=== PATIENT | female | born 1950 | race Caucasian/White ===

== ENCOUNTER 2017-01-05 12:11 | Outpatient (CLI) | payer MEDICAID | END 2017-01-05 12:12 | disposition critical access hospital (66) | DX: J45.901 Unspecified asthma with (acute) exacerbation (principal) | CPT/HCPCS: A0425; A0427 ==

== ENCOUNTER 2017-01-05 12:33 | Observation (INO) | payer MEDICAID ==
[2017-01-05] MEDS ORDERED: predniSONE 20 MG TABLET PO STA (12:59)
[2017-01-05] MEDS ORDERED: ALBUTEROL NEB 2.5 MG/3 ML INH STA ×2 (12:59→16:21)
[2017-01-05] MEDS ORDERED: predniSONE 20 MG TABLET ONE (13:03)
[2017-01-05] MEDS ORDERED: ALBUTEROL NEB 2.5 MG/3 ML INH ONE ×2 (13:05→17:03)
[2017-01-05] MEDS ORDERED: HYDROcod/ACETAM 5/325 MG TABLET PO STA (13:06)
[2017-01-05] MEDS ORDERED: HYDROcod/ACETAM 5/325 MG TABLET ONE (13:09)
[2017-01-05] MEDS ORDERED: BENZONATATE 100 MG CAPSULE PO STA (16:21)
[2017-01-05] MEDS ORDERED: MECLIZINE 12.5 MG TABLET PO PRN (16:45)
[2017-01-05] MEDS ORDERED: BENZONATATE 100 MG CAPSULE PO ONE (16:45)
[2017-01-05] MEDS ORDERED: guaiFENesin/CODEINE 5 ML UDC PO PRN (16:47)
[2017-01-05] MEDS ORDERED: ACETAMINOPHEN 325 MG TABLET PO PRN (16:47)
[2017-01-05] MEDS ORDERED: SODIUM CHLORIDE FLUSH 0.9% 10 ML SYRINGE IVP PRN (16:47)
[2017-01-05] MEDS ORDERED: SODIUM CHLORIDE INHALATION 3 ML NEB INH PRN (17:56)
[2017-01-05] MEDS: INSULIN ASPART 300 UNIT/3 ML PEN SUBQ SCH ×3 (18:39→21:09)
[2017-01-05] MEDS: guaiFENesin 100 MG/5 ML UDC PO PRN (19:11)
[2017-01-05] MEDS ORDERED: diphenhydrAMINE 25 MG CAPSULE PO PRN (19:13)
[2017-01-05] MEDS ORDERED: LORazepam 0.5 MG TABLET PO PRN (19:46)
[2017-01-05] MEDS: LEVALBUTEROL 1.25 MG INH SCH (20:28)
[2017-01-05] MEDS: BUDESONIDE 0.5 MG/2 ML NEB INH SCH (20:28)
[2017-01-05] MEDS: FORMOTEROL FUMARATE NEB 20 MCG/2 ML INH SCH (20:28)
[2017-01-05] MEDS ORDERED: DULoxetine 30 MG CAPSULE PO SCH (21:00)
[2017-01-05] MEDS ORDERED: INSULIN GLARGINE 300 UNIT/3 ML PEN SUBQ SCH (21:00)
[2017-01-05] MEDS ORDERED: ATORVASTATIN 10 MG TABLET PO SCH (21:00)
[2017-01-05] MEDS ORDERED: NORTRIPTYLINE 25 MG CAPSULE PO SCH (21:00)
[2017-01-05] MEDS ORDERED: BECLOMETHASONE 80 MCG INH SCH (21:00)
[2017-01-05] MEDS: GABAPENTIN 300 MG CAPSULE PO SCH (22:41)
[2017-01-05] MEDS: SODIUM CHLORIDE FLUSH 0.9% 10 ML SYRINGE IVP SCH (23:27)
[2017-01-06] MEDS: guaiFENesin 100 MG/5 ML UDC PO PRN ×2 (00:55→13:52)
[2017-01-06] MEDS: GABAPENTIN 300 MG CAPSULE PO SCH ×2 (06:05→13:52)
[2017-01-06] MEDS: SODIUM CHLORIDE FLUSH 0.9% 10 ML SYRINGE IVP SCH ×2 (06:06→13:52)
[2017-01-06] MEDS ORDERED: LEVALBUTEROL 1.25 MG INH PRN (06:50)
[2017-01-06] MEDS ORDERED: PANTOPRAZOLE 40 MG TABLET PO SCH (07:00)
[2017-01-06] MEDS: FORMOTEROL FUMARATE NEB 20 MCG/2 ML INH SCH (07:21)
[2017-01-06] MEDS: LEVALBUTEROL 1.25 MG INH SCH ×3 (07:21→16:06)
[2017-01-06] MEDS: BUDESONIDE 0.5 MG/2 ML NEB INH SCH (07:21)
[2017-01-06] MEDS ORDERED: LOSARTAN 50 MG TABLET PO SCH (09:00)
[2017-01-06] MEDS ORDERED: POLYETHYLENE GLYCOL 3350 17 GM PACKET PO SCH (09:00)
[2017-01-06] MEDS ORDERED: amLODIPine 5 MG TABLET PO SCH (09:00)
[2017-01-06] MEDS ORDERED: MONTELUKAST 10 MG TABLET PO SCH (09:00)
[2017-01-06] MEDS: INSULIN ASPART 300 UNIT/3 ML PEN SUBQ SCH ×6 (09:00→17:06)
[2017-01-06] MEDS ORDERED: ENOXAPARIN 40 MG/0.4 ML SYRINGE SUBQ SCH (09:00)
[2017-01-06] MEDS ORDERED: ASPIRIN EC 81 MG TABLET PO SCH (09:00)
[2017-01-06] MEDS: SODIUM CHLORIDE INHALATION 3 ML NEB INH PRN ×2 (11:22→16:06)
== END 2017-01-06 17:54 | disposition home or self-care (01) ==
DX: J96.11 Chronic respiratory failure with hypoxia (principal); J96.12 Chronic respiratory failure with hypercapnia; J45.901 Unspecified asthma with (acute) exacerbation; E66.2 Morbid (severe) obesity with alveolar hypoventilation; D72.829 Elevated white blood cell count, unspecified; E11.42 Type 2 diabetes mellitus with diabetic polyneuropathy; I11.0 Hypertensive heart disease with heart failure; I50.32 Chronic diastolic (congestive) heart failure; E78.5 Hyperlipidemia, unspecified; K21.9 Gastro-esophageal reflux disease without esophagitis; M79.89 Other specified soft tissue disorders; I27.2 Other secondary pulmonary hypertension; Z68.44 Body mass index [BMI] 60.0-69.9, adult; Z79.4 Long term (current) use of insulin; Z87.891 Personal history of nicotine dependence; Z91.19 Patient's noncompliance with other medical treatment and regimen; Z87.01 Personal history of pneumonia (recurrent); Z79.82 Long term (current) use of aspirin
CPT/HCPCS: 36415; 36600; 71010; 80053; 82803; 83036; 83690; 83880; 84484; 85025; 85379; 93005; 93306; 93971; 94640; 94761; 96372; 99284; 99285; A9270; G0378; J1650; J1815; J7512; J7613; J7626

== ENCOUNTER 2017-01-11 20:20 | Outpatient (CLI) | payer MEDICAID | END 2017-01-11 20:21 | disposition home or self-care (01) | DX: R05 Cough (principal) | CPT/HCPCS: A0425; A0429 ==

== ENCOUNTER 2017-01-11 20:40 | Emergency (ER) | payer MEDICAID ==
[2017-01-11] MEDS ORDERED: ALBUTEROL NEB 2.5 MG/3 ML INH STA (21:19)
[2017-01-11] MEDS ORDERED: HYDROcodone/ACETAM 7.5 MG/325 MG 15 ML UDC PO STA (21:20)
[2017-01-11] MEDS ORDERED: ALBUTEROL NEB 2.5 MG/3 ML INH ONE (21:23)
[2017-01-11] MEDS ORDERED: HYDROcodone/ACETAM 7.5 MG/325 MG 15 ML UDC PO ONE (21:35)
[2017-01-11] MEDS ORDERED: BENZONATATE 100 MG CAPSULE PO STA (23:09)
[2017-01-11] MEDS ORDERED: BENZONATATE 100 MG CAPSULE PO ONE (23:10)
== END 2017-01-11 23:12 | disposition home or self-care (01) ==
DX: R05 Cough (principal); I11.0 Hypertensive heart disease with heart failure; I50.9 Heart failure, unspecified; E78.00 Pure hypercholesterolemia, unspecified; J45.909 Unspecified asthma, uncomplicated; E11.9 Type 2 diabetes mellitus without complications; Z79.4 Long term (current) use of insulin; K21.9 Gastro-esophageal reflux disease without esophagitis; M19.90 Unspecified osteoarthritis, unspecified site; Z79.82 Long term (current) use of aspirin; Z87.891 Personal history of nicotine dependence
CPT/HCPCS: 71020; 94640; 99283; A9270; J7613

== ENCOUNTER 2017-01-11 23:24 | Outpatient (CLI) | payer MEDICAID | END 2017-01-11 23:25 | disposition home or self-care (01) | DX: R05 Cough (principal) | CPT/HCPCS: A0425; A0428 ==

== ENCOUNTER 2017-02-13 15:12 | Outpatient (CLI) | payer MEDICAID | END 2017-02-13 15:13 | disposition home or self-care (01) | DX: L03.90 Cellulitis, unspecified (principal) ==

== ENCOUNTER 2017-02-14 13:40 | Outpatient (CLI) | payer MEDICAID | END 2017-02-14 13:41 | disposition home or self-care (01) | DX: L03.90 Cellulitis, unspecified (principal) ==

== ENCOUNTER 2017-02-23 06:40 | Outpatient (CLI) | payer MEDICAID | END 2017-02-23 06:41 | disposition EMS.NT | LOC: EMS 06:40 | PROVIDERS: ATTEND Surgery | DX: Z03.89 Encounter for observation for other suspected diseases and conditions ruled out (principal); W01.0XXA Fall on same level from slipping, tripping and stumbling without subsequent striking against object, initial encounter; Y92.003 Bedroom of unspecified non-institutional (private) residence as the place of occurrence of the external cause ==

== ENCOUNTER 2017-02-28 10:52 | Observation (INO) | payer MEDICAID ==
--- NOTE | 2017-02-28 11:19 | ED Physician Documentation ---
History of Present Illness - Stated complaint Stated Complaint: CP - Chief complaint Chief Complaint: Cardiac - Additonal information Additional information: hx from pt 66 f hx HTN DM CHF asthma (home O2 dependent) and a high BMI 5 days of int chest pressure, wore with exertion, better with rest, lasting about 10 min at a time, associated soa, no NV, 4/10 max was having sx when EMS arrived but they could not get an EKG tracing, was given asa and nitro and now sx resolved recent knee injury 5 days ago both legs chronically swollen Review of Systems Constitutional: denies: Fever, Chills PD PAST MEDICAL HISTORY - Past Medical History Cardiovascular: Congestive heart failure, Hypertension, High cholesterol, Murmur Respiratory: Asthma, Sleep apnea Neuro: Peripheral neuropathy Endocrine/Autoimmune: Type 2 diabetes GI: GERD, Hiatal hernia [employer]: None : None, Incontinence HEENT: Chronic vision loss, Other Psych: Depression, Anxiety Musculoskeletal: Osteoarthritis, Chronic back pain Derm: Psoriasis, Other - Past Surgical History Past Surgical History: No - Present Medications Home Medications: Ambulatory Orders Medication Instructions Recorded Confirmed Amlodipine Besylate 10 mg PO DAILY 12/13/13 02/28/17 Atorvastatin Calcium [Lipitor] 10 mg PO QPM 12/13/13 02/28/17 Beclomethasone 80 Mcg [Qvar 80] 1 puffs INH BID 12/13/13 02/28/17 Insulin Glargine,Hum.rec.anlog 85 unit SUBQ QPM 12/13/13 02/28/17 [Lantus] Nortriptyline [Pamelor] 100 mg PO QPM 12/13/13 02/28/17 Omeprazole [Prilosec] 20 mg PO QDAC 12/13/13 02/28/17 Montelukast [Singulair] 10 mg PO DAILY PRN 12/21/14 02/28/17 Insulin Lispro [Humalog] 10 units SQ TIDWM 05/25/15 02/28/17 Aspirin [Aspir 81] 81 mg PO DAILY 09/20/15 02/28/17 Meclizine HCl [Travel Sickness] 25 mg PO BID PRN 09/20/15 02/28/17 Duloxetine HCl 60 mg PO QPM 01/05/17 02/28/17 Albuterol Sulfate [Proair Hfa 2 puffs INH Q4H PRN 01/06/17 02/28/17 Inhaler] Diphenhydramine HCl [Banophen] 50 mg PO QPM PRN 01/06/17 02/28/17 Docusate Sodium 100Mg Capsule 100 mg PO BID PRN 01/06/17 02/28/17 [Colace 100Mg Capsule] Fluticasone [Flonase] 1 sprays ROHITH BID 01/06/17 02/28/17 Ipratropium/Albuterol Sulfate 3 ml INH QID PRN 01/06/17 02/28/17 [Iprat-Albut 0.5-3(2.5) mg/3 ml] Losartan [Cozaar] 50 mg PO DAILY #30 tablet 01/06/17 02/28/17 Furosemide 40 mg PO DAILY 02/28/17 02/28/17 Potassium Chloride 10 meq PO DAILYWM 02/28/17 02/28/17 - Allergies Allergies/Adverse Reactions: Allergies Allergy/AdvReac Type Severity Reaction Status Date / Time cephalexin monohydrate * Allergy Unknown Verified 02/28/17 11:01 [From Keflex] codeine Allergy Itching Verified 01/05/17 12:40 morphine Allergy Emesis Verified 01/11/17 20:46 Penicillins Allergy Hives Verified 01/05/17 12:40 - Social History Does the pt smoke?: No Smoking Status: Former smoker Does the pt drink ETOH?: No Does the pt have substance abuse?: No - Immunizations Immunizations are current?: Yes - POLST Patient has POLST: No PD ED PE NORMAL - Vitals Vital signs reviewed: Yes - General General: Alert and oriented X 3 - Cardiac Cardiac: RRR - Respiratory Respiratory: No respiratory distress, Clear bilaterally - Abdomen Abdomen: Soft, Non tender - Derm Derm: Other (bandaid on knee, rocío symm LE edema s infection) - Neuro Neuro: Alert and oriented X 3, No motor deficit Results - Vitals Vitals: Vital Signs - 24 hr 02/28/17 02/28/17 02/28/17 10:56 11:55 13:10 Temperature 36.7 C Heart Rate 77 89 88 Respiratory 24 20 19 Rate Blood Pressure 124/51 L 148/73 H 104/87 H O2 Saturation 97 99 99 Oxygen O2 Source Nasal cannula Oxygen Flow Rate 2 - EKG (time done) 1101 Rate: Rate (enter#) Rhythm: NSR (P waves best seen lead V2) Intervals: RBBB QRS: Normal Ischemia: Normal ST segments - Labs Labs: Laboratory Tests 02/28/17 02/28/17 02/28/17 12:20 12:20 12:20 WBC 12.9 H RBC 3.96 L Hgb 11.0 L Hct 34.4 L MCV 86.9 MCH 27.8 MCHC 31.9 L RDW 15.3 H Plt Count 331 MPV 7.9 Neut # 10.6 H Lymph # 1.2 L Oliver # 0.8 Eos # 0.3 Baso # 0.0 Absolute Nucleated RBC 0.00 Nucleated RBCs 0.0 Sodium 134 L Potassium 6.7 H* Chloride 97 L Carbon Dioxide 32 Anion Gap 5.0 L BUN 33 H Creatinine 1.5 H Estimated GFR (MDRD) 35 L Glucose 80 Calcium 8.9 Total Bilirubin 0.5 AST 17 ALT 15 Alkaline Phosphatase 91 Troponin I < 0.04 B-Natriuretic Peptide Total Protein 7.2 Albumin 3.3 Globulin 3.9 Albumin/Globulin Ratio 0.8 L Lipase 14 L 02/28/17 02/28/17 12:20 14:11 WBC RBC Hgb Hct MCV MCH MCHC RDW Plt Count MPV Neut # Lymph # Oliver # Eos # Baso # Absolute Nucleated RBC Nucleated RBCs Sodium 135 Potassium 6.3 H* Chloride 97 L Carbon Dioxide 34 H Anion Gap 4.0 L BUN 31 H Creatinine 1.4 H Estimated GFR (MDRD) 38 L Glucose 112 H Calcium 9.0 Total Bilirubin AST ALT Alkaline Phosphatase Troponin I B-Natriuretic Peptide 12 Total Protein Albumin Globulin Albumin/Globulin Ratio Lipase - Rads (name of study) CXR Radiology: See rad report (neg) PD MEDICAL DECISION MAKING - ED course ED course: RBBB wide complex is new K 6.8, not hemolyzed per lab, creat 1.5, gave calcium, insulin D50, bicarb, kayexalate will admit pt should also continue work up for potential new angina, echo for wall motion abn, serial trop etc Departure - Departure Disposition: ED Place in Observation Clinical Impression: Hyperkalemia Chest pain Qualifiers: Chest pain type: unspecified Qualified Code(s): R07.9 - Chest pain, unspecified Condition: Fair Discharge Date/Time: 02/28/17 15:45
--- NOTE | 2017-02-28 11:31 | XRAY Preliminary Report ---
Exam: XR Chest 1 View IMPRESSION: Negative portable chest. [facility] SITE ID: [id number]
--- NOTE | 2017-02-28 11:32 | XRAY Report ---
EXAM: CHEST RADIOGRAPHY EXAM DATE: 02/28/2017 11:20 AM. CLINICAL HISTORY: Chest pain and shortness of breath COMPARISON: 40 1317. TECHNIQUE: 1 view. FINDINGS: Shallow inspiratory effort. Lungs/Pleura: No focal opacities evident. No pleural effusion. No pneumothorax. Mediastinum: Within exam limitations, cardiomediastinal contour is normal. Other: None. IMPRESSION: Negative portable chest. [facility] Referring Provider Line: [phone] SITE ID: [id number]
[2017-02-28 12:29] LABS: BASOPHILS % (AUTO) 0.4 %; EOSINOPHILS # (AUTO) 0.3 10^3/uL (0.0-0.7); HCT - HEMATOCRIT 34.4 % (37.0-47.0); LYMPHOCYTES # (AUTO) 1.2 10^3/uL (1.5-3.5); LYMPHOCYTES % (AUTO) 9.5 %; MEAN CORPUSCULAR HEMOGLOBIN 27.8 pg (27.0-31.0); MEAN CORPUSCULAR HGB CONC 31.9 g/dL (32.0-36.0); MEAN CORPUSCULAR VOLUME 86.9 fL (81.0-99.0); MEAN PLATELET VOLUME 7.9 fL (7.9-10.8); MONOCYTES # (AUTO) 0.8 10^3/uL (0.0-1.0); MONOCYTES % (AUTO) 6.2 %; NEUTROPHILS # (AUTO) 10.6 10^3/uL (1.5-6.6); NEUTROPHILS % (AUTO) 81.9 %; RED BLOOD COUNT 3.96 10^6/uL (4.20-5.40); RED CELL DISTRIBUTION WIDTH 15.3 % (12.0-15.0); UNCORRECTED WHITE BLOOD COUNT 12.9 x10^3/uL; WHITE BLOOD COUNT 12.9 x10^3/uL (4.8-10.8)
[2017-02-28 12:53] LABS: ALBUMIN/GLOBULIN RATIO 0.8 (1.0-2.2); BILIRUBIN,TOTAL 0.5 mg/dL (0.2-1.0); CALCIUM 8.9 mg/dL (8.5-10.3); CREATININE 1.5 mg/dL (0.4-1.0); TOTAL PROTEIN 7.2 g/dL (6.7-8.2)
[2017-02-28 12:54] LABS: POTASSIUM 6.7 mmol/L (3.5-5.0)
[2017-02-28] MEDS ORDERED: DEXTROSE 50% ABBOJECT 25 GM/50 ML SYRINGE IVP STA (12:59)
[2017-02-28] MEDS ORDERED: CALCIUM GLUCONATE 1,000 MG in SODIUM CHLORIDE 0.9% 50 ML IV ONE (12:59)
[2017-02-28] MEDS ORDERED: INSULIN REGULAR HUMAN 100 UNIT/1 ML 10 ML MDV IVP STA (12:59)
[2017-02-28] MEDS ORDERED: SODIUM BICARBONATE ABBOJECT 50 MEQ/50 ML SYRINGE IVP STA (12:59)
[2017-02-28] MEDS ORDERED: DEXTROSE 50% ABBOJECT 25 GM/50 ML SYRINGE ONE (13:05)
[2017-02-28] MEDS ORDERED: SODIUM BICARBONATE ABBOJECT 50 MEQ/50 ML SYRINGE ONE (13:05)
[2017-02-28] MEDS ORDERED: INSULIN REGULAR HUMAN 100 UNIT/1 ML 10 ML MDV ONE (13:06)
[2017-02-28 14:43] LABS: CREATININE 1.4 mg/dL (0.4-1.0)
[2017-02-28 14:44] LABS: POTASSIUM 6.3 mmol/L (3.5-5.0)
[2017-02-28] MEDS ORDERED: ONDANSETRON ODT 4 MG TABLET TL PRN (14:44)
[2017-02-28] MEDS ORDERED: ACETAMINOPHEN 325 MG TABLET PO PRN ×2 (14:44→15:00)
[2017-02-28] MEDS ORDERED: SODIUM POLYSTYRENE SULFONATE 15 GM/60 ML BOTTLE PO ONE (15:14)
[2017-02-28] MEDS: IPRATROPIUM/ALBUTEROL 3 ML NEB INH PRN ×2 (16:15→20:00)
[2017-02-28 16:33] LABS: BILIRUBIN,URINE NEGATIVE (NEGATIVE)
[2017-02-28 16:46] LABS: MAGNESIUM 1.8 mg/dL (1.7-2.8); PHOSPHORUS 4.4 mg/dL (2.5-4.6)
[2017-02-28 16:52] LABS: UR CULTURE IF IND NOT INDICATED
[2017-02-28] MEDS: PANTOPRAZOLE 40 MG VIAL IVP SCH (16:52)
[2017-02-28] MEDS: INSULIN ASPART 300 UNIT/3 ML PEN SUBQ SCH ×2 (16:52→21:22)
[2017-02-28] MEDS: SODIUM CHLORIDE FLUSH 0.9% 10 ML SYRINGE IVP SCH (16:52)
[2017-02-28 16:55] LABS: HEMOGLOBIN A1C 0.68 g/dL
--- NOTE | 2017-02-28 17:17 | HISTORY & PHYSICAL EXAMINATION ---
DATE OF ADMISSION: 02/28/2017 PRIMARY CARE PHYSICIAN: Ynes Pedersen. CHIEF COMPLAINT: Chest discomfort, shortness of breath with exertion x5 days and bilateral lower leg edema and weakness. HISTORY OF PRESENT ILLNESS: The patient is a morbidly obese 66-year-old female who presented to the ER today with a complaint of 5 days of intermittent chest pressure more with exertion, better at rest that has lasted 10 minutes at a time. The patient has significant history for hypertension, diabetes, CHF, asthma. She is on home O2, morbid obesity, GERD, urinary incontinence, anxiety, depression, osteoarthritis, chronic back pain, psoriasis, hyperlipidemia and obstructive sleep apnea. The patient has had similar symptoms before in the past. Her symptoms started approximately 5 days ago when she was walking and her legs "gave out on her." She sustained a right knee injury with significant abrasion approximately 2.5 to 3 inches in diameter. The patient was not seen by urgent care or ER for right knee abrasion and injury. She stated that she cleaned the injury up and bandaged it and continued with her activities of daily living. Today, though, she presents with pain 4/10 and significant weakness with lower extremities and chest pressure. She has chronic bilateral venous insufficiency and peripheral neuropathy from diabetes. She has had multiple episodes of cellulitis along with psoriasis and edema to her lower extremities. The patient states she has been compliant with all her medications as prescribed. While in the ER, she was evaluated by the ER provider and found to have a potassium level at 6.7 and a sodium of 134 and acute kidney injury with a creatinine of 1.5, GFR at 35. The patient was admitted for closer monitoring and electrolyte stabilization. Upon evaluation in the ER by hospitalist team, the patient was found to be alert, in no acute distress. White blood cell count was at 12.9, potassium level at that time had been decreasing now at 6.3 after being given calcium gluconate. Her kidney function was improving and was now at 1.4 with a GFR of 38. Since the patient was still short of breath with exertion along with injury to right knee, recommendation was to do a V/Q scan to rule out possible pulmonary embolism. BNP at the time was 12 and troponin had been negative so far. The patient was admitted to observation with cardiac markers trending. EKG followup. She will need an echocardiogram as well. ALLERGIES: 1. KEFLEX. 2. CODEINE. 3. MORPHINE. 4. PENICILLIN. HOME MEDICATIONS: 1. Amlodipine. 2. Lipitor. 3. Beclomethasone. 4. Insulin Lantus. 5. Pamelor. 6. Prilosec. 7. Singulair. 8. Humalog. 9. Aspirin. 10. Meclizine. 11. Duloxetine HCL. 12. Tylenol. 13. Albuterol sulfate ProAir inhaler. 14. Benefen 15. Colace. 16. Flonase. 17. Ipratropium Albuterol sulfate nebs. 18. Cozaar. 19. Robitussin DM. 20. Hydrocodone homatropine syrup. PAST MEDICAL HISTORY: Includes congestive heart failure, hypertension, high cholesterol, history of murmur, history of asthma, obstructive sleep apnea with CPAP use, peripheral neuropathy, type 2 diabetes, insulin-dependent, GERD, large hiatal hernia, urinary incontinence, chronic vision loss of right eye with corneal abrasion, depression, generalized anxiety disorder, osteoarthritis , chronic back pain with degenerative joint disease, psoriasis, morbid obesity and wheelchair dependence, carpal tunnel syndrome, hypercholesterolemia, history of Raynaud's, seasonal allergies. PAST SURGICAL HISTORY: None. FAMILY HISTORY: The patient lives with her sister who is relatively healthy. Both her parents had diabetes and hypertension and obesity. PAST SOCIAL HISTORY: The patient denies alcohol usage. She does not take any street drugs, and she is a former smoker. REVIEW OF SYSTEMS: Ten systems have been reviewed and is negative with the exceptions that have been discussed in the HPI prior. She still remains negative for hematuria, dysuria, nausea, vomiting, diarrhea, constipation, headache. Positive for numbness, tingling to extremities, chest discomfort and shortness of breath with exertion and weakness to bilateral lower extremities. PHYSICAL EXAMINATION: CONSTITUTIONAL: The patient is alert, in no acute distress. EYES: Pupils are equal, round and reactive to light and accommodation. Conjunctivae and sclerae are nonicteric, not injected. ENT: Nares are patent. No nasal discharge. Oropharynx: No masses, exudates or lesions. Mucous membranes are moist. NECK: Supple, large. No thyromegaly. RESPIRATORY: Breath sounds diminished in bases, otherwise no retractions or nasal flaring, or increased work of breathing. No wheezes or rhonchi noted. CARDIOVASCULAR: Slight murmur. No gallops or rubs. Sinus rate and rhythm. S1, S2 noted. GASTROINTESTINAL: Abdomen is obese, nontender. Bowel sounds active. No guarding or rebound. GENITOURINARY: No CVA tenderness, difficult to assess bladder distention due to size of pannus. MUSCULOSKELETAL: Extremities: The patient is able to move upper and lower extremities; however, with difficulty to lower extremities. She has noted venous insufficiency to bilateral lower extremities with abrasion to right knee and moderate erythema and edema. Good capillary refill and pulses are palpable. SKIN: Warm, dry, intact. Normal turgor. No rashes or lesions noted. The patient does have a history of psoriasis, could see small plaques to upper right chest wall healing. PSYCHIATRIC: Behavior is appropriate. Pleasant mood. Normal affect. NEUROLOGIC: She is alert, GCS 15. Sensory is intact. Cranial nerves 2 through 7 were intact. HEMATOLOGIC: No active bleeding. The patient is hemodynamically stable. LYMPHATICS: No cervical, axillary or supraclavicular lymphadenopathy is noted. VITAL SIGNS: Temperature is 36.6, respirations are 20, heart rate 18 with a blood pressure of 150/68. LABORATORY AND DIAGNOSTICS: The laboratory and diagnostic data was reviewed in the medical records and the pertinent labs are Potassium 6.7, soidum 134, creatinine 1.5, BUN 33, hemoglobin A1C 7.2, urinalysis pending, BNP 16 Chest xray shows no acute infiltrate, pneumothorax or effusion. IMPRESSION AND PLAN: 1. Acute hyperkalemia secondary to acute chest discomfort with dyspnea on exertion with diastolic CHF unknown EF PLAN: Admit patient to observation with rule out for cardiac event. Calcium gluconate and insulin given in the ER. repeat potassium level. Kayexalate given x 2. Trend cardiac markers, repeat EKG, respiratory therapy with supplemental oxygen 2 liters NC and DuoNeb treatment as needed. Echocardiogram ordered for morning 2. Insulin Dependent Diabetes Mellitus with peripheral neuropathy secondary to morbid obesity with BMI >50 PLAN: continue on home dosage of insulin at 85units of Lantus BID and meals covered with humolog 10units with each meal. sliding scale insulin ACHS. diabetic diet. Hemoglobin A1C at 7.2. diabetic counseling recommended 3. Morbid obesity with BMI>50 with excessive caloric intake PLAN: reduce calories per meal and nutrition on awake counselor recommended, encourage ambulation 4. Acute on chronic bilateral lower extremity edema secondary to bilateral venous insufficiency and morbid obesity PLAN: continue to encourage ambulation and PT and OT evaluation. SCD and SONYA hose recommended. elevation of extremities and continue on Lasix once kidney function improves 5. Acute kidney injury with GFR 32 stage 3 with CKD stage 4. PLAN: continue with hydration gently with IVF NS at 100ml an hour. monitor for edema or crackles in lungs. avoid nephrotoxic Meds and monitor electrolytes. 6. DVT prophylaxis: SCD and Lovenox time spent on evaluation with patient was 50 minutes for planning and assessment. Status: patient was a FULL CODE status Risk assessment and disposition: Patient is high risk for worsening co morbid conditions, She will require at least one overnight stay. She is getting IV medications with high risk for toxicity. JOB #: [id number] EXT JOB #:[id number]
[2017-02-28] MEDS: SODIUM CHLORIDE FLUSH 0.9% 10 ML SYRINGE IVP PRN ×2 (18:00→19:25)
[2017-02-28] MEDS ORDERED: MAGNESIUM SULFATE 2 GRAM 50 ML IV ONE (18:00)
[2017-02-28 18:07] LABS: ALBUMIN/GLOBULIN RATIO 0.8 (1.0-2.2); BILIRUBIN,TOTAL 0.5 mg/dL (0.2-1.0); CREATININE 1.4 mg/dL (0.4-1.0); POTASSIUM 6.1 mmol/L (3.5-5.0); TOTAL PROTEIN 7.3 g/dL (6.7-8.2)
[2017-02-28] MEDS ORDERED: SODIUM CHLORIDE 0.9% 100ML 100 ML IV ONE (18:34)
[2017-02-28] MEDS ORDERED: SODIUM POLYSTYRENE SULFONATE 15 GM/60 ML BOTTLE PO SCH (19:00)
[2017-02-28] MEDS: HYDROcod/ACETAM 10 MG/325 MG TABLET PO PRN (19:24)
[2017-02-28] MEDS: BUDESONIDE 0.5 MG/2 ML NEB INH SCH (20:00)
[2017-02-28] MEDS ORDERED: INSULIN GLARGINE 300 UNIT/3 ML PEN SUBQ SCH (21:00)
[2017-02-28] MEDS: DULoxetine 30 MG CAPSULE PO SCH (21:12)
[2017-02-28] MEDS: ATORVASTATIN 10 MG TABLET PO SCH (21:13)
[2017-02-28 21:19] LABS: CALCIUM 9.1 mg/dL (8.5-10.3); CREATININE 1.4 mg/dL (0.4-1.0)
[2017-03-01 06:16] LABS: BASOPHILS % (AUTO) 0.4 %; EOSINOPHILS # (AUTO) 0.4 10^3/uL (0.0-0.7); EOSINOPHILS % (AUTO) 4.2 %; HCT - HEMATOCRIT 33.5 % (37.0-47.0); HGB - HEMOGLOBIN 10.6 g/dL (12.0-16.0); LYMPHOCYTES # (AUTO) 1.3 10^3/uL (1.5-3.5); LYMPHOCYTES % (AUTO) 13.3 %; MEAN CORPUSCULAR HEMOGLOBIN 27.9 pg (27.0-31.0); MEAN CORPUSCULAR HGB CONC 31.7 g/dL (32.0-36.0); MEAN CORPUSCULAR VOLUME 88.2 fL (81.0-99.0); MEAN PLATELET VOLUME 7.9 fL (7.9-10.8); MONOCYTES # (AUTO) 0.9 10^3/uL (0.0-1.0); MONOCYTES % (AUTO) 9.1 %; NEUTROPHILS # (AUTO) 7.4 10^3/uL (1.5-6.6); UNCORRECTED WHITE BLOOD COUNT 10.1 x10^3/uL; WHITE BLOOD COUNT 10.1 x10^3/uL (4.8-10.8)
[2017-03-01 06:30] LABS: ALBUMIN/GLOBULIN RATIO 0.8 (1.0-2.2); BILIRUBIN,TOTAL 0.5 mg/dL (0.2-1.0); BUN - BLOOD UREA NITROGEN 30 mg/dL (6-20); CALCIUM 8.7 mg/dL (8.5-10.3); CARBON DIOXIDE - CO2 33 mmol/L (21-32); CHLORIDE 99 mmol/L (101-111); CHOL/HDL RATIO 2.4 (<4.4); CHOLESTEROL 113 mg/dL; CREATININE 1.3 mg/dL (0.4-1.0); GFR - MDRD 41 (>89); GLUCOSE 134 mg/dL (70-100); HDL CHOLESTEROL 48 mg/dL; LDL/HDL RATIO 1.1 (<4.4); SODIUM 137 mmol/L (135-145); TOTAL PROTEIN 6.7 g/dL (6.7-8.2); TRIGLYCERIDES 72 mg/dL; VLDL CHOLESTEROL 14 mg/dL
[2017-03-01] MEDS ORDERED: INSULIN REGULAR HUMAN 100 UNIT/1 ML 10 ML MDV IVP STA (06:30)
[2017-03-01] MEDS ORDERED: DEXTROSE 50% ABBOJECT 25 GM/50 ML SYRINGE IVP ONE (06:30)
[2017-03-01] MEDS: PANTOPRAZOLE 40 MG VIAL IVP SCH ×2 (06:47→15:39)
[2017-03-01] MEDS: SODIUM CHLORIDE FLUSH 0.9% 10 ML SYRINGE IVP SCH ×3 (06:50→21:15)
[2017-03-01] MEDS: HYDROcod/ACETAM 10 MG/325 MG TABLET PO PRN ×3 (06:53→21:08)
--- NOTE | 2017-03-01 07:40 | PROVIDER PROGRESS NOTE ---
Assessment/Plan - Problem List (1) Hyperkalemia Assessment/Plan: ongoing. Patients potassium today is still 6.0. will restart her lasix IV since this may help decrease the potassium and her kidney function is improving now. will repeat potassium level Q6 x 2. continue to monitor othe electrolytes. (2) Morbid (severe) obesity with alveolar hypoventilation Assessment/Plan: ongoing. continue to encourage ambulation. daily weight. PT and OT. low calorie diet ordered (3) Chronic GERD Assessment/Plan: stable. 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 continue to monitor blood glucose. sliding scale insulin. continue on pain medications and encourage ambulation with PT and nursing. (5) Hyperlipidemia associated with type 2 diabetes mellitus Assessment/Plan: stable. continue on cholesterol home medication dosage. lipid panel checked and WNL (6) Osteoarthritis involving multiple joints on both sides of body Assessment/Plan: chronic. continue with pain medication and encourage ambulation and PT assessment and assist (7) Generalized psoriasis Assessment/Plan: stable. PRN medication for itching or worsening of skin condition (8) Hypertensive heart disease with congestive heart failure and stage 3 kidney disease Assessment/Plan: ongoing. BNP normal. Echo shows 55% EF from December 2016. Lasix 40mg BID IV given to help reduce edema in lower extremities and to reduce potassium level. will monitor on telemetry and monitor for rhonchi and rales in lungs. encourage ambulation for edema and elevate lower extremities when laying or sitting - Current Meds Current Meds: Current Medications Generic Name Dose Route Start Last Admin Trade Name Freq PRN Reason Stop Dose Admin Acetaminophen/Hydrocodone Bitart 1 tab 02/28/17 18:30 03/01/17 06:53 [place] 10 Mg/325 Mg PO 1 tab Q6HR PRN Administration PAIN Albuterol/Ipratropium 3 ml 02/28/17 15:00 02/28/17 20:00 Duoneb INH 3 ml RTQID PRN Administration DYSPNEA/WHEEZING Atorvastatin Calcium 10 mg 02/28/17 21:00 02/28/17 21:13 Lipitor PO 10 mg QPM SIMIN Administration Budesonide 0.5 mg 02/28/17 19:00 02/28/17 20:00 Pulmicort INH 0.5 mg RTBID SIMIN Administration Duloxetine HCl 60 mg 02/28/17 21:00 02/28/17 21:12 Cymbalta PO 60 mg QPM SIMIN Administration Insulin Aspart 10 unit 02/28/17 17:00 02/28/17 16:52 Novolog SUBQ Not Given TIDWM SIMIN Insulin Aspart 1 - 5 unit 02/28/17 21:00 02/28/17 21:22 Novolog SUBQ Not Given 0800,1200,1700,2100 [facility] Protocol Insulin Glargine 85 unit 02/28/17 21:00 02/28/17 21:23 Lantus Solostar SUBQ Not Given QPM SIMIN Pantoprazole Sodium 40 mg 02/28/17 16:00 03/01/17 06:47 Protonix IVP 40 mg BIDAC SIMIN Administration Sodium Chloride 10 ml 02/28/17 14:44 02/28/17 19:25 Normal Saline Flush 0.9% IVP 10 ml PRN PRN Administration NEEDED PER PROVIDER ORDERS Sodium Chloride 10 ml 02/28/17 22:00 03/01/17 06:50 Normal Saline Flush 0.9% IVP 10 ml Q8HR SIMIN Administration - Lab Result Lab results reviewed: Yes Fish Bone Diagrams: 03/01/17 06:00 03/01/17 12:05 Other Lab Results: Abnormal Lab Results 02/28/17 02/28/17 02/28/17 12:20 12:20 14:11 WBC 12.9 x10^3/uL H x10^3/uL (4.8-10.8) RBC 3.96 10^6/uL L 10^6/uL (4.20-5.40) Hgb 11.0 g/dL L g/dL (12.0-16.0) Hct 34.4 % L % (37.0-47.0) MCHC 31.9 g/dL L g/dL (32.0-36.0) RDW 15.3 % H % (12.0-15.0) Neut # 10.6 10^3/uL H 10^3/uL (1.5-6.6) Lymph # 1.2 10^3/uL L 10^3/uL (1.5-3.5) Sodium 134 mmol/L L mmol/L (135-145) Potassium 6.7 mmol/L H* mmol/L 6.3 mmol/L H* mmol/L (3.5-5.0) (3.5-5.0) Chloride 97 mmol/L L mmol/L 97 mmol/L L mmol/L (101-111) (101-111) Carbon Dioxide 34 mmol/L H mmol/L (21-32) Anion Gap 5.0 L 4.0 L (6-13) (6-13) BUN 33 mg/dL H mg/dL 31 mg/dL H mg/dL (6-20) (6-20) Creatinine 1.5 mg/dL H mg/dL 1.4 mg/dL H mg/dL (0.4-1.0) (0.4-1.0) Estimated GFR (MDRD) 35 L 38 L (>89) (>89) Glucose 112 mg/dL H mg/dL (70-100) Glycated Hemoglobin Estim Average Glucose C-Reactive Protein Albumin Albumin/Globulin Ratio 0.8 L (1.0-2.2) HDL Cholesterol Lipase 14 U/L L U/L (22-51) Urine WBC Ur Squamous Epith Cells 02/28/17 02/28/17 02/28/17 16:15 16:19 16:19 WBC RBC Hgb Hct MCHC RDW Neut # Lymph # Sodium Potassium Chloride Carbon Dioxide Anion Gap BUN Creatinine Estimated GFR (MDRD) Glucose Glycated Hemoglobin 7.1 % H % (4.6-6.2) Estim Average Glucose 157 H (70-100) C-Reactive Protein 9.3 mg/dL H mg/dL (0-1.0) Albumin Albumin/Globulin Ratio HDL Cholesterol Lipase Urine WBC 6-10 /HPF H /HPF (0-5) Ur Squamous Epith Cells MOD Squamous H (<= Few) 02/28/17 02/28/17 03/01/17 17:32 20:54 06:00 WBC RBC Hgb Hct MCHC RDW Neut # Lymph # Sodium Potassium 6.1 mmol/L H* mmol/L 6.0 mmol/L H* mmol/L 6.0 mmol/L H* mmol/L (3.5-5.0) (3.5-5.0) (3.5-5.0) Chloride 98 mmol/L L mmol/L 97 mmol/L L mmol/L 99 mmol/L L mmol/L (101-111) (101-111) (101-111) Carbon Dioxide 33 mmol/L H mmol/L 33 mmol/L H mmol/L 33 mmol/L H mmol/L (21-32) (21-32) (21-32) Anion Gap 5.0 L 5.0 L (6-13) (6-13) BUN 31 mg/dL H mg/dL 30 mg/dL H mg/dL 30 mg/dL H mg/dL (6-20) (6-20) (6-20) Creatinine 1.4 mg/dL H mg/dL 1.4 mg/dL H mg/dL 1.3 mg/dL H mg/dL (0.4-1.0) (0.4-1.0) (0.4-1.0) Estimated GFR (MDRD) 38 L 38 L 41 L (>89) (>89) (>89) Glucose 134 mg/dL H mg/dL (70-100) Glycated Hemoglobin Estim Average Glucose C-Reactive Protein Albumin 3.0 g/dL L g/dL (3.2-5.5) Albumin/Globulin Ratio 0.8 L 0.8 L (1.0-2.2) (1.0-2.2) HDL Cholesterol 48 mg/dL L mg/dL (60 - ) Lipase Urine WBC Ur Squamous Epith Cells 03/01/17 06:00 WBC RBC 3.80 10^6/uL L 10^6/uL (4.20-5.40) Hgb 10.6 g/dL L g/dL (12.0-16.0) Hct 33.5 % L % (37.0-47.0) MCHC 31.7 g/dL L g/dL (32.0-36.0) RDW Neut # 7.4 10^3/uL H 10^3/uL (1.5-6.6) Lymph # 1.3 10^3/uL L 10^3/uL (1.5-3.5) Sodium Potassium Chloride Carbon Dioxide Anion Gap BUN Creatinine Estimated GFR (MDRD) Glucose Glycated Hemoglobin Estim Average Glucose C-Reactive Protein Albumin Albumin/Globulin Ratio HDL Cholesterol Lipase Urine WBC Ur Squamous Epith Cells - EKG Results EKG Interpreted Independently: No - Additional Planning Condition/Complexity: Stable My Orders: My Active Orders 02/28/17 15:00 Acetaminophen [Tylenol] 650 mg PO Q4HR PRN Ipratropium/Albuterol [Duoneb] 3 ml INH RTQID PRN 02/28/17 15:13 RT [Nebulizer/MDI Tx.] [RC] QID 02/28/17 16:19 VITAMIN D, 1,25-DIHYDROXY [REFLAB] Stat 02/28/17 17:00 Insulin Aspart [NovoLOG] 10 unit SUBQ TIDWM 02/28/17 18:21 Blood Glucose Checks - Eating [RC] 0800,1200,1700,2100 Initiate Hypoglycemia Protocol [RC] .protocol 02/28/17 18:30 HYDROcodone/ACET 10/325 [[place] 10 mg/325 mg] 1 tab PO Q6HR PRN 02/28/17 19:00 Budesonide [Pulmicort] 0.5 mg INH RTBID 02/28/17 21:00 Atorvastatin [Lipitor] 10 mg PO QPM DULoxetine [Cymbalta] 60 mg PO QPM Insulin Aspart [NovoLOG] 1 - 5 unit SUBQ 0800,1200,1700,2100 Insulin Glargine [Lantus Solostar] 85 unit SUBQ QPM 03/01/17 09:00 Aspirin EC [Ecotrin] 81 mg PO DAILY FUROSEMIDE INJ 40mg VIAL [LASIX INJ 40 mg VIAL] 40 mg IVP DAILY Losartan [Cozaar] 50 mg PO DAILY Consult/Specialty: OT, PT Plan Discussed with:: Patient, Case Management Time Spent: 31-60 minutes Additional Planning Notes: Patient is inpatient for another 24-48 hours depending on potassium level. She is receiving IV medication lasix to reduce edema and potassium and is high risk for worsening co morbid conditions. Subjective - Subjective Patient Reports: Feeling Better, Resting Comfortably, No Complaints Nursing Reports: Other (having to urinate alot and does not want to get up. having loose stools with kayexalate) Objective Vital Signs: Vital Signs - 24 hr 02/28/17 02/28/17 02/28/17 15:15 16:15 16:47 Temperature 36.9 C Heart Rate 76 82 Heart Rate [ 82 Radial] Respiratory 16 20 16 Rate Blood Pressure 150/68 H Blood Pressure [Left Radial artery] Blood Pressure 142/69 H [Right Radial artery] O2 Saturation 98 96 02/28/17 02/28/17 02/28/17 20:00 20:53 23:57 Temperature 36.8 C 37.0 C Heart Rate 92 Heart Rate [ 85 80 Radial] Respiratory 18 18 18 Rate Blood Pressure Blood Pressure 115/63 [Left Radial artery] Blood Pressure 116/67 [Right Radial artery] O2 Saturation 96 92 03/01/17 03/01/17 05:05 07:23 Temperature 36.6 C 36.5 C Heart Rate Heart Rate [ 84 78 Radial] Respiratory 16 18 Rate Blood Pressure Blood Pressure 102/63 [Left Radial artery] Blood Pressure 110/72 [Right Radial artery] O2 Saturation 95 96 Oxygen O2 Source Nasal cannula I&O (Last 24 Hrs): Intake and Output Totals x24h 02/27/17 02/28/17 03/01/17 23:59 23:59 23:59 Intake Total 610 Output Total 300 Balance 610 -300 General: Alert, Oriented x3, Cooperative HEENT: PERRLA Neck: Supple, No JVD, No thyromegaly Lymphatic: no adenopathy Neuro: Alert, CN 2-12 Grossly Intact, Oriented Times 3 Cardiovascular: Normal S1, Normal S2 Respiratory: No respiratory distress Abdomen: Normal bowel sounds, Soft, No masses Genitourinary: No Discharge Rectal: Stool - Heme NEG Extremities: No clubbing, No cyanosis, Other (edema to lower extremities which is chronic) Skin: No rashes (has chronic psoriasis), No breakdown, No significant lesion - Results Results: Laboratory Results WBC 10.1 x10^3/uL (4.8-10.8) 03/01/17 06:00 RBC 3.80 10^6/uL (4.20-5.40) L 03/01/17 06:00 Hgb 10.6 g/dL (12.0-16.0) L 03/01/17 06:00 Hct 33.5 % (37.0-47.0) L 03/01/17 06:00 MCV 88.2 fL (81.0-99.0) 03/01/17 06:00 MCH 27.9 pg (27.0-31.0) 03/01/17 06:00 MCHC 31.7 g/dL (32.0-36.0) L 03/01/17 06:00 RDW 15.0 % (12.0-15.0) 03/01/17 06:00 Plt Count 329 10^3/uL (130-450) 03/01/17 06:00 MPV 7.9 fL (7.9-10.8) 03/01/17 06:00 Neut # 7.4 10^3/uL (1.5-6.6) H 03/01/17 06:00 Lymph # 1.3 10^3/uL (1.5-3.5) L 03/01/17 06:00 [place] # 0.9 10^3/uL (0.0-1.0) 03/01/17 06:00 Eos # 0.4 10^3/uL (0.0-0.7) 03/01/17 06:00 Baso # 0.0 10^3/uL (0.0-0.1) 03/01/17 06:00 Absolute Nucleated RBC 0.00 x10^3/uL 03/01/17 06:00 Nucleated RBCs 0.0 /100WBC 03/01/17 06:00 Sodium 137 mmol/L (135-145) 03/01/17 06:00 Potassium 6.0 mmol/L (3.5-5.0) H* 03/01/17 06:00 Chloride 99 mmol/L (101-111) L 03/01/17 06:00 Carbon Dioxide 33 mmol/L (21-32) H 03/01/17 06:00 Anion Gap 5.0 (6-13) L 03/01/17 06:00 BUN 30 mg/dL (6-20) H 03/01/17 06:00 Creatinine 1.3 mg/dL (0.4-1.0) H 03/01/17 06:00 Estimated GFR (MDRD) 41 (>89) L 03/01/17 06:00 Glucose 134 mg/dL (70-100) H 03/01/17 06:00 Glycated Hemoglobin 7.1 % (4.6-6.2) H 02/28/17 16:19 Estim Average Glucose 157 (70-100) H 02/28/17 16:19 Calcium 8.7 mg/dL (8.5-10.3) 03/01/17 06:00 Phosphorus 4.4 mg/dL (2.5-4.6) 02/28/17 16:19 Magnesium 1.8 mg/dL (1.7-2.8) 02/28/17 16:19 Total Bilirubin 0.5 mg/dL (0.2-1.0) 03/01/17 06:00 AST 17 IU/L (10-42) 03/01/17 06:00 ALT 14 IU/L (10-60) 03/01/17 06:00 Alkaline Phosphatase 90 IU/L (42-121) 03/01/17 06:00 Troponin I < 0.04 ng/mL (<0.49) 02/28/17 17:32 C-Reactive Protein 9.3 mg/dL (0-1.0) H 02/28/17 16:19 B-Natriuretic Peptide 15 pg/mL (5-100) 02/28/17 16:19 Total Protein 6.7 g/dL (6.7-8.2) 03/01/17 06:00 Albumin 3.0 g/dL (3.2-5.5) L 03/01/17 06:00 Globulin 3.7 g/dL (2.1-4.2) 03/01/17 06:00 Albumin/Globulin Ratio 0.8 (1.0-2.2) L 03/01/17 06:00 Triglycerides 72 mg/dL (-149) 03/01/17 06:00 Cholesterol 113 mg/dL (-199) 03/01/17 06:00 LDL Cholesterol, Calc 51 mg/dL (-129) 03/01/17 06:00 VLDL Cholesterol 14 mg/dL 03/01/17 06:00 HDL Cholesterol 48 mg/dL (60-) L 03/01/17 06:00 LDL/HDL Ratio 1.1 (<4.4) 03/01/17 06:00 Cholesterol/HDL Ratio 2.4 (<4.4) 03/01/17 06:00 Lipase 14 U/L (22-51) L 02/28/17 12:20 TSH 2.42 uIU/mL (0.34-5.60) 02/28/17 16:19 Urine Color YELLOW 02/28/17 16:15 Urine Clarity CLEAR (CLEAR) 02/28/17 16:15 Urine pH 6.0 PH (5.0-7.5) 02/28/17 16:15 Ur Specific [place] 1.010 (1.002-1.030) 02/28/17 16:15 Urine Protein NEGATIVE mg/dL (NEGATIVE) 02/28/17 16:15 Urine Glucose (UA) NEGATIVE mg/dL (NEGATIVE) 02/28/17 16:15 Urine Ketones NEGATIVE mg/dL (NEGATIVE) 02/28/17 16:15 Urine Occult Blood NEGATIVE (NEGATIVE) 02/28/17 16:15 Urine Nitrite NEGATIVE (NEGATIVE) 02/28/17 16:15 Urine Bilirubin NEGATIVE (NEGATIVE) 02/28/17 16:15 Urine Urobilinogen 0.2 (NORMAL) E.U./dL (NORMAL) 02/28/17 16:15 Ur Leukocyte Esterase NEGATIVE (NEGATIVE) 02/28/17 16:15 Urine RBC 0-5 /HPF (0-5) 02/28/17 16:15 Urine WBC 6-10 /HPF (0-5) H 02/28/17 16:15 Urine WBC Clumps PRESENT 02/28/17 16:15 Ur Squamous Epith Cells MOD Squamous (<= Few) H 02/28/17 16:15 Urine Bacteria Rare /HPF (None Seen) 02/28/17 16:15 Urine Culture Comments NOT INDICATED 02/28/17 16:15
[2017-03-01] MEDS: BUDESONIDE 0.5 MG/2 ML NEB INH SCH ×2 (08:00→19:10)
[2017-03-01] MEDS: LOSARTAN 50 MG TABLET PO SCH (08:23)
[2017-03-01] MEDS: ASPIRIN EC 81 MG TABLET PO SCH (08:23)
[2017-03-01] MEDS: ENOXAPARIN 40 MG/0.4 ML SYRINGE SUBQ SCH (08:23)
[2017-03-01] MEDS: POLYETHYLENE GLYCOL 3350 17 GM PACKET PO SCH (08:24)
[2017-03-01] MEDS: FUROSEMIDE 40 MG/4 ML VIAL IVP SCH (08:24)
[2017-03-01] MEDS: SODIUM CHLORIDE FLUSH 0.9% 10 ML SYRINGE IVP PRN ×2 (08:24→15:39)
[2017-03-01] MEDS: INSULIN ASPART 300 UNIT/3 ML PEN SUBQ SCH ×7 (08:35→21:12)
[2017-03-01] MEDS ORDERED: INSULIN GLARGINE 300 UNIT/3 ML PEN SUBQ SCH (13:31)
[2017-03-01] MEDS ORDERED: SODIUM POLYSTYRENE SULFONATE 15 GM/60 ML BOTTLE PO SCH (14:00)
[2017-03-01] MEDS ORDERED: FUROSEMIDE 40 MG/4 ML VIAL IVP SCH (14:00)
[2017-03-01] MEDS: IPRATROPIUM/ALBUTEROL 3 ML NEB INH PRN (19:10)
[2017-03-01] MEDS: DULoxetine 30 MG CAPSULE PO SCH (21:08)
[2017-03-01] MEDS: ATORVASTATIN 10 MG TABLET PO SCH (21:08)
[2017-03-02] MEDS: SODIUM CHLORIDE FLUSH 0.9% 10 ML SYRINGE IVP SCH ×2 (05:45→08:13)
[2017-03-02] MEDS: PANTOPRAZOLE 40 MG VIAL IVP SCH (05:45)
[2017-03-02 06:38] LABS: BASOPHILS # (AUTO) 0.2 10^3/uL (0.0-0.1); BASOPHILS % (AUTO) 1.3 %; EOSINOPHILS # (AUTO) 0.4 10^3/uL (0.0-0.7); EOSINOPHILS % (AUTO) 3.2 %; HCT - HEMATOCRIT 35.8 % (37.0-47.0); HGB - HEMOGLOBIN 11.3 g/dL (12.0-16.0); LYMPHOCYTES # (AUTO) 1.5 10^3/uL (1.5-3.5); LYMPHOCYTES % (AUTO) 12.3 %; MEAN CORPUSCULAR HEMOGLOBIN 28.1 pg (27.0-31.0); MEAN CORPUSCULAR HGB CONC 31.6 g/dL (32.0-36.0); MEAN CORPUSCULAR VOLUME 88.9 fL (81.0-99.0); MEAN PLATELET VOLUME 7.8 fL (7.9-10.8); NEUTROPHILS # (AUTO) 9.3 10^3/uL (1.5-6.6); NEUTROPHILS % (AUTO) 75.2 %; NUCLEATED RED BLOOD CELLS AUTO 0.1 /100WBC; RED BLOOD COUNT 4.02 10^6/uL (4.20-5.40); RED CELL DISTRIBUTION WIDTH 15.3 % (12.0-15.0); UNCORRECTED WHITE BLOOD COUNT 12.4 x10^3/uL; WHITE BLOOD COUNT 12.4 x10^3/uL (4.8-10.8)
[2017-03-02 06:49] LABS: ALBUMIN/GLOBULIN RATIO 0.8 (1.0-2.2); BILIRUBIN,TOTAL 0.5 mg/dL (0.2-1.0); CREATININE 1.6 mg/dL (0.4-1.0); POTASSIUM 6.7 mmol/L (3.5-5.0); TOTAL PROTEIN 7.4 g/dL (6.7-8.2)
[2017-03-02] MEDS ORDERED: SODIUM POLYSTYRENE SULFONATE 15 GM/60 ML BOTTLE PO SCH (06:55)
[2017-03-02] MEDS ORDERED: CALCIUM GLUCONATE 1,000 MG in SODIUM CHLORIDE 0.9% 50 ML IV ONE (06:57)
[2017-03-02] MEDS: FUROSEMIDE 40 MG/4 ML VIAL IVP SCH (08:13)
[2017-03-02] MEDS: ENOXAPARIN 40 MG/0.4 ML SYRINGE SUBQ SCH (08:18)
[2017-03-02] MEDS: INSULIN ASPART 300 UNIT/3 ML PEN SUBQ SCH ×4 (08:19→12:28)
[2017-03-02] MEDS: POLYETHYLENE GLYCOL 3350 17 GM PACKET PO SCH (08:21)
[2017-03-02] MEDS: LOSARTAN 50 MG TABLET PO SCH (08:24)
[2017-03-02] MEDS: ASPIRIN EC 81 MG TABLET PO SCH (08:24)
[2017-03-02] MEDS ORDERED: ALBUTEROL NEB 2.5 MG/3 ML INH SCH (09:33)
[2017-03-02 09:36] LABS: MAGNESIUM 1.7 mg/dL (1.7-2.8); PHOSPHORUS 5.3 mg/dL (2.5-4.6)
[2017-03-02] MEDS ORDERED: ENOXAPARIN 120 MG/0.8 ML SYRINGE SUBQ SCH (10:00)
[2017-03-02] MEDS ORDERED: ASPIRIN CHEW 81 MG TABLET PO SCH (10:00)
[2017-03-02 10:06] LABS: ABG BASE EXCESS 3.3 mmol/L (-2.0-3.0); ABG HCO3 32.3 mmol/L (22.0-26.0); ABG OXYGEN SATURATION 90 % (94-98); ABG PH 7.26 (7.35-7.45); ABG PO2 59 mmHg (80-100); ABG TCO2 34.6 MMOL/L (21.0-29.0)
[2017-03-02] MEDS: ENOXAPARIN 60 MG/0.6 ML SYRINGE SUBQ SCH ×2 (10:06→10:21)
[2017-03-02 10:07] LABS: ABG O2 DEVICE NASAL CANNULA; ABG SATURATION PULSE OXIMETRY% 94 %; ABG SITE OF DRAW RIGHT RADIAL; ALLEN TEST POSITIVE
[2017-03-02 10:08] LABS: ABG PCO2 73 mmHg (34-45)
[2017-03-02] MEDS ORDERED: MORPHINE 2 MG/ML SYRINGE ONE (10:13)
[2017-03-02] MEDS: NITROGLYCERIN SL 0.4 MG TABLET SL PRN ×3 (10:20→10:45)
[2017-03-02] MEDS ORDERED: ENOXAPARIN 60 MG/0.6 ML SYRINGE SUBQ SCH (10:20)
[2017-03-02 10:35] LABS: TROPONIN I < 0.04 ng/mL (<0.49)
[2017-03-02 10:53] LABS: CREATINE KINASE MB 1.1 ng/mL (0.6-6.3)
[2017-03-02] MEDS ORDERED: ATENOLOL 25 MG TABLET PO SCH (11:00)
[2017-03-02 11:56] LABS: ALBUMIN/GLOBULIN RATIO 0.9 (1.0-2.2); BILIRUBIN,TOTAL 0.7 mg/dL (0.2-1.0); CALCIUM 8.8 mg/dL (8.5-10.3); CREATININE 1.8 mg/dL (0.4-1.0); TOTAL PROTEIN 6.9 g/dL (6.7-8.2)
--- NOTE | 2017-03-02 12:01 | XRAY Report ---
FRONTAL CHEST: 03/02/2017 CLINICAL INDICATION: Difficulty breathing. FINDINGS: Frontal view of the chest is compared to previous film of 02/28/2017. The cardiac silhoue tte is within normal limits. Pulmonary vascular congestion has increased. No focal infiltrate, effu tracey, or pneumothorax is seen. IMPRESSION: INCREASING PULMONARY VASCULAR CONGESTION. JOB #: [id number] EXT JOB #:[id number]
[2017-03-02] MEDS ORDERED: DEXTROSE 50% ABBOJECT 25 GM/50 ML SYRINGE IVP SCH (12:09)
[2017-03-02] MEDS ORDERED: INSULIN REGULAR HUMAN 100 UNIT/1 ML 10 ML MDV IVP SCH (12:09)
[2017-03-02 12:35] VITALS: BP 131/70
--- NOTE | 2017-03-02 13:53 | DISCHARGE SUMMARY ---
DATE OF ADMISSION: 02/28/2017 DATE OF DISCHARGE: 03/02/2017 ADMITTING DIAGNOSES 1. Hyperkalemia with other electrolyte imbalances secondary to insulin- dependent diabetes mellitus with neurological complications and other comorbidities. DISCHARGE DIAGNOSIS: 1. Acute hyperkalemia with metabolic encephalopathy and respiratory acidosis 2. Morbid obesity with body mass index greater than 50. 3. Hyperlipidemia associated with type 2 diabetes mellitus. 4. Osteoarthritis involving multiple joints on both sides of the body. 5. Chronic gastroesophageal reflux disease. 6. Severe hypoxia with obstructive sleep apnea. 7. Generalized psoriasis. 8. Hypertensive heart disease with congestive heart failure and stage III kidney disease. 9. Mild dehydration with acute renal disease with stage III chronic kidney disease. PROCEDURES 1. Chest x-ray. Impression shows negative portable chest for focal opacities, pneumothorax, or infiltrate. 2. EKG, which shows sinus rhythm with mild tachycardia and T-wave changes. Patient does have on record an echocardiogram from December 2016 which shows an ejection fraction of 55% and diastolic congestive heart failure. HOSPITAL COURSE: The patient is a morbidly obese female who presented to the ER with complaint of general malaise, weakness, bilateral lower extremity weakness and edema. She was recently seen approximately 2 months ago for similar symptoms ; however, today she presents with an elevated potassium at 6.7. The patient was given calcium gluconate along with dextrose and insulin and Kayexalate to help drive down the potassium. The patient has multiple comorbidities including uncontrolled diabetes mellitus, hyperlipidemia, psoriasis, former smoker, depression/anxiety, chronic vision loss, hiatal hernia, GERD, peripheral neuropathy, obstructive sleep apnea, asthma, congestive heart failure, hypertension, and a history of osteoarthritis with chronic back pain. The patient was admitted for further evaluation and workup and correction of her electrolytes. The patient was continued on her insulin Lantus 85 units subcutaneous morning and night and also continued on diabetic diet and sliding scale insulin. She continued on aspirin therapy along with Lipitor for cholesterol and respiratory therapy treatments for her asthma. The patient also takes losartan and Lasix, which were also continued. The patient did have slight mild dehydration at the time of admission, so Lasix was held the first day of admission. She was corrected with normal saline at 100 mL an hour and titrated off on the second day and Lasix restarted. The patient's potassium was improving on the second day of admission and had come down to 5.9 at that time. She was started back on IV Lasix to continue to reduce the potassium level. The patient remained alert and oriented at this time and continued to receive respiratory therapy treatments as needed. On the second day of admission, the patient was evaluated early in the morning, was found to be altered and confused. EKG was requested and was noted to have ST changes, right bundle branch block, and what appeared to be a minimal ST changes in leads II and III. The patient was then given aspirin and since she was starting to complain of pain between the upper shoulder blades and back. She denied sweating or nausea, left arm pain, or any chest pressure at this time. She described it more as just a sharp pain between the middle of her back. She was given a dose of weight based lovenox SQ. She had been scheduled for a VQ scan but due to her size and unable to fit into the scanner, the test was cancelled. Patient was treated for possible PE. Patient's vital signs at that time were 81 on her heart rate, blood pressure was 113/68, and pulse oximetry 84% on room air. On 10 liters, she was 92%. ABG was done, which showed a pH of 7.26, pCO2 of 72.3, pO2 of 58.5, bicarbonate 32.3 , with a base excess of 3.3. The patient was given DuoNeb treatments and also treated with Lovenox 160 mg subcutaneous. The patient was also given 2 mg of morphine along with nitro, which did help reduce the pain to a 4/10. The patient appeared to be more alert at this time, was talking and conversing with nursing and hospitalist staff. Cardiac enzymes were negative at 0.04 at this time. Decision was made by the hospitalist team that patient should be transferred for Cardiology workup and evaluation for hyperkalemia and nephrology consult. The patient was then accepted by Dr Penaloza at [facility] to be transferred ground due to patient's large habitus with a BMI of 61. Family was also contacted regarding patient's status. Her sister does live with her, who was also contacted this morning. The patient's most recent vital signs are 91/58, heart rate 84, respirations are 22, and pulse oximetry is 92% on 8 liters. At this time, patient remains A FULL CODE STATUS. PHYSICAL EXAM: General: alert but disoriented obese female HEENT: nares patent, neck supple, PERRLA RESPIRATORY: diminished bilaterally, no wheeze, rhonchi to lower lobes bilaterally CARDIOVASCULAR: no JVD, normal PMI, no gallop or rub. S1, S2, regular rate GASTROINTESTINAL: obese, soft, no guarding or rebound GENITURINARY: no CVA tenderness, no masses PSYCHIATRIC: flat affect, disoriented to place, cooperative HEMATOLOGIC: no active bleeding, stable LYMPHATICS: no axillary or supraclavicular lymphadenopathy SKIN: marked psoriasis to chest upper right side, no cellulitis, no lesions MUSCULAR/SKELETAL: no cyanosis, edema bilateral lower extremities, pulses palpable bilaterally NEUROLOGIC: Alert, disoriented to place. sensory intact Time spent on dictation for discharge was approximately 70 minutes for planning and documentation. JOB #: [id number] EXT JOB #:[id number] MTDD
[2017-03-02] MEDS ORDERED: ENOXAPARIN 80 MG/0.8 ML SYRINGE SUBQ SCH (21:00)
--- NOTE | 2017-03-06 16:50 | Discharge Plan ---
Discharge Plan Disposition: 02 Transfer Acute Care Hosp Condition: Fair Diet: Diabetic Activity Restrictions: Activity as Tolerated Shower Restrictions: No Driving Restrictions: No Weight Bearing: Full Weight Additional Instructions or Follow Up instructions: patient was to be transferred to [facility] for hyperkalmia under the care of Dr Penaloza No Smoking: If you smoke, Please STOP! Call for help. Follow-up with: Ynes Pedersen ARNP [Primary Care Provider] -
[2017-03-11 20:03] LABS: ALDO/PRA RATIO 0.2 Ratio (0.9-28.9)
== END 2017-03-02 12:45 | disposition short-term general hospital (02) ==
LOC: EDUNIT# → ED 10:52 → MS 14:44
PROVIDERS: ADMIT Nurse Practitioner; ATTEND Nurse Practitioner
DX: E87.5 Hyperkalemia (principal); G93.41 Metabolic encephalopathy; E87.2 Acidosis; E66.2 Morbid (severe) obesity with alveolar hypoventilation; E11.42 Type 2 diabetes mellitus with diabetic polyneuropathy; E11.65 Type 2 diabetes mellitus with hyperglycemia; E78.5 Hyperlipidemia, unspecified; M15.0 Primary generalized (osteo)arthritis; K21.9 Gastro-esophageal reflux disease without esophagitis; R09.02 Hypoxemia; L40.9 Psoriasis, unspecified; I13.0 Hypertensive heart and chronic kidney disease with heart failure and stage 1 through stage 4 chronic kidney disease, or unspecified chronic kidney disease; N18.3 Chronic kidney disease, stage 3 (moderate); I50.30 Unspecified diastolic (congestive) heart failure; E86.0 Dehydration; N17.9 Acute kidney failure, unspecified; R07.89 Other chest pain; S80.211A Abrasion, right knee, initial encounter; X58.XXXA Exposure to other specified factors, initial encounter; J45.909 Unspecified asthma, uncomplicated; M54.9 Dorsalgia, unspecified; G89.29 Other chronic pain; F41.1 Generalized anxiety disorder; F32.9 Major depressive disorder, single episode, unspecified; K44.9 Diaphragmatic hernia without obstruction or gangrene; I87.2 Venous insufficiency (chronic) (peripheral); I73.00 Raynaud's syndrome without gangrene; Z99.81 Dependence on supplemental oxygen; Z79.4 Long term (current) use of insulin; Z79.82 Long term (current) use of aspirin; Z87.891 Personal history of nicotine dependence; Z68.44 Body mass index [BMI] 60.0-69.9, adult; Z99.3 Dependence on wheelchair
CPT/HCPCS: 36415; 36600; 71010; 80048; 80053; 80061; 81001; 82088; 82550; 82553; 82652; 82803; 83036; 83690; 83735; 83880; 83970; 84100; 84132; 84244; 84443; 84484; 85025; 86140; 93005; 93010; 94640; 96365; 96366; 96367; 96372; 96375; 96376; 97161; 97165; 99284; A9270; G0378; G8978; G8979; G8987; G8988; G8989; J1650; J1815; J7040; J7620; J7626; Q0162; 83519; 87086; 99283

== ENCOUNTER 2017-03-02 12:52 | Outpatient (CLI) | payer MEDICAID | END 2017-03-02 12:53 | disposition short-term general hospital (02) | LOC: EMS 12:52 | PROVIDERS: ATTEND Surgery | DX: M54.5 Low back pain (principal) | CPT/HCPCS: A0425; A0426 ==

== ENCOUNTER 2017-03-07 11:19 | Outpatient (CLI) | payer MEDICAID | END 2017-03-07 11:20 | disposition critical access hospital (66) | LOC: EMS 11:19 | PROVIDERS: ATTEND Surgery | DX: M54.2 Cervicalgia (principal) | CPT/HCPCS: A0425; A0429 ==

== ENCOUNTER 2017-03-07 11:40 | Emergency (ER) | payer MEDICAID ==
[2017-03-07] MEDS ORDERED: SODIUM CHLORIDE 0.9% 1,000 ML IV ONE ×2 (12:10→12:45)
--- NOTE | 2017-03-07 12:11 | ED Physician Documentation ---
History of Present Illness - Stated complaint Stated Complaint: LOW 02 - Chief complaint Chief Complaint: Resp - History obtained from History obtained from: Patient, EMS - History of Present Illness Timing: Today - Additonal information Additional information: 66 y/o female with a history of morbid obesity, CHF (diastolic), , diabetes, htn and COPD was recently admitted with renal failure and elevated K+ and was transferred to [facility] where she was diuresed, her potassium improved as did her mentation. Today she was found at home without her oxygen on and confused. Review of Systems Constitutional: denies: Fever Eyes: denies: Decreased vision Nose: reports: Congestion Throat: denies: Sore throat Cardiac: denies: Chest pain / pressure, Palpitations Respiratory: reports: Dyspnea. denies: Cough GI: denies: Abdominal Pain, Nausea, Vomiting : denies: Dysuria, Frequency Skin: denies: Rash Musculoskeletal: reports: Extremity pain. denies: Neck pain, Back pain Neurologic: reports: Generalized weakness. 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 : None, Incontinence HEENT: Chronic vision loss, Other Psych: Depression Musculoskeletal: Osteoarthritis, Chronic back pain Derm: Psoriasis, Other - Past Surgical History Past Surgical History: No - Present Medications Home Medications: Ambulatory Orders Medication Instructions Recorded Confirmed Amlodipine Besylate 10 mg PO DAILY 12/13/13 02/28/17 Atorvastatin Calcium [Lipitor] 10 mg PO QPM 12/13/13 02/28/17 Beclomethasone 80 Mcg [Qvar 80] 1 puffs INH BID 12/13/13 02/28/17 Insulin Glargine,Hum.rec.anlog 85 unit SUBQ QPM 12/13/13 02/28/17 [Lantus] Nortriptyline [Pamelor] 100 mg PO QPM 12/13/13 02/28/17 Omeprazole [Prilosec] 20 mg PO QDAC 12/13/13 02/28/17 Montelukast [Singulair] 10 mg PO DAILY PRN 12/21/14 02/28/17 Insulin Lispro [Humalog] 10 units SQ TIDWM 05/25/15 02/28/17 Aspirin [Aspir 81] 81 mg PO DAILY 09/20/15 02/28/17 Meclizine HCl [Travel Sickness] 25 mg PO BID PRN 09/20/15 02/28/17 Duloxetine HCl 60 mg PO QPM 01/05/17 02/28/17 Albuterol Sulfate [Proair Hfa 2 puffs INH Q4H PRN 01/06/17 02/28/17 Inhaler] Diphenhydramine HCl [Banophen] 50 mg PO QPM PRN 01/06/17 02/28/17 Docusate Sodium 100Mg Capsule 100 mg PO BID PRN 01/06/17 02/28/17 [Colace 100Mg Capsule] Fluticasone [Flonase] 1 sprays ROHITH BID 01/06/17 02/28/17 Ipratropium/Albuterol Sulfate 3 ml INH QID PRN 01/06/17 02/28/17 [Iprat-Albut 0.5-3(2.5) mg/3 ml] Losartan [Cozaar] 50 mg PO DAILY #30 tablet 01/06/17 02/28/17 Furosemide 40 mg PO DAILY 02/28/17 02/28/17 Potassium Chloride 10 meq PO DAILYWM 02/28/17 02/28/17 - Allergies Allergies/Adverse Reactions: Allergies Allergy/AdvReac Type Severity Reaction Status Date / Time cephalexin monohydrate * Allergy Unknown Verified 03/07/17 11:45 [From Keflex] codeine Allergy Itching Verified 03/07/17 11:45 morphine Allergy Emesis Verified 03/07/17 11:45 Penicillins Allergy Hives Verified 03/07/17 11:45 - Social History Does the pt smoke?: No Smoking Status: Former smoker Does the pt drink ETOH?: No Does the pt have substance abuse?: No - Immunizations Immunizations are current?: Yes - POLST Patient has POLST: No PD ED PE NORMAL - Vitals Vital signs reviewed: Yes (hypotensive and tachy ) - General General: No acute distress, Well developed/nourished - HEENT HEENT: Atraumatic, PERRL - Neck Neck: Supple, no meningeal sign - Cardiac Cardiac: No murmur, Other (tachy ) - Respiratory Respiratory: No respiratory distress, Other (diminished breath sounds bilaterally ) - Abdomen Abdomen: Soft, Non tender, Other (modrbidly obese) - Back Back: No CVA TTP, No spinal TTP - Derm Derm: Normal color, Warm and dry, No rash - Extremities Extremities: No deformity, Other (There is edema bilaterally about 1/2 the size of her prior to recent admission. There is erythema to the anterior calf bilaterally and there is a large deep abrasion to the right knee over the patella that appeas to have surrounding erythema. ) - Neuro Neuro: No motor deficit, No sensory deficit, Normal speech - Psych Psych: Normal mood, Normal affect Results - Vitals Vitals: Vital Signs - 24 hr 03/07/17 03/07/17 03/07/17 11:40 12:06 12:43 Temperature 36.6 C Heart Rate 104 H 100 73 Respiratory 20 18 20 Rate Blood Pressure 78/58 L 81/49 L 94/47 L O2 Saturation 92 94 93 03/07/17 03/07/17 03/07/17 13:09 13:33 14:00 Temperature Heart Rate 72 72 73 Respiratory 18 18 Rate Blood Pressure 102/56 L 102/47 L 109/62 O2 Saturation 95 03/07/17 03/07/17 14:28 15:28 Temperature Heart Rate 71 72 Respiratory 16 18 Rate Blood Pressure 104/56 L 102/48 L O2 Saturation 98 97 Oxygen O2 Source Nasal cannula Oxygen Flow Rate 2 - EKG (time done) 1157 Rate: Rate (enter#) (101) Rhythm: Sinus tachycardia Intervals: RBBB Compare to prior EKG: Changed from prior EKG (SPT 02-28-17 rate has increased. ) Computer interpretation: Agree with computer - Labs Labs: Laboratory Tests 03/07/17 03/07/17 03/07/17 12:00 12:00 12:00 WBC 41.9 H* RBC 3.99 L Hgb 11.0 L Hct 34.0 L MCV 85.2 MCH 27.6 MCHC 32.4 RDW 15.4 H Plt Count 366 MPV 7.9 Neut # Not Reportable Lymph # Not Reportable [place] # Not Reportable Eos # Not Reportable Baso # Not Reportable Absolute Nucleated RBC Not Reportable Total Counted 100 Band Neuts % (Manual) 9 Metamyelocytes % 1 H Neutrophils # (Manual) 40.2 H Lymphocytes # (Manual) 1.3 L Nucleated RBCs Not Reportable Differential Comment MANUAL DIFFERENTIAL Platelet Estimate NORMAL (130-450,000) Platelet Morphology NORMAL APPEARANCE RBC Morph Micro Appear NORMAL APPEARANCE Sodium 128 L Potassium 4.3 Chloride 79 L* Carbon Dioxide 34 H Anion Gap 15.0 H BUN 59 H Creatinine 3.3 H Estimated GFR (MDRD) 14 L Glucose 184 H Lactic Acid Calcium 8.6 Total Bilirubin 0.9 AST 33 ALT 24 Alkaline Phosphatase 75 Troponin I 0.04 B-Natriuretic Peptide Total Protein 7.0 Albumin 2.9 L Globulin 4.1 Albumin/Globulin Ratio 0.7 L Lipase 14 L 03/07/17 03/07/17 12:00 12:00 WBC RBC Hgb Hct MCV MCH MCHC RDW Plt Count MPV Neut # Lymph # [place] # Eos # Baso # Absolute Nucleated RBC Total Counted Band Neuts % (Manual) Metamyelocytes % Neutrophils # (Manual) Lymphocytes # (Manual) Nucleated RBCs Differential Comment Platelet Estimate Platelet Morphology RBC Morph Micro Appear Sodium Potassium Chloride Carbon Dioxide Anion Gap BUN Creatinine Estimated GFR (MDRD) Glucose Lactic Acid 1.3 Calcium Total Bilirubin AST ALT Alkaline Phosphatase Troponin I B-Natriuretic Peptide 40 Total Protein Albumin Globulin Albumin/Globulin Ratio Lipase - Rads (name of study) 2 view chest Radiology: Prelim report reviewed (Impression: Subtle right upper lobe and left basilar infiltrates versus chronic changes.), EMP read indepedently (dry looking lungs ), See rad report Procedures - IVC sono (time) 1200 Bedside IVC sono: IVC measures (cm) (0.66), IVC collapsed c insp (cm) (complete) , Significant dehydration PD MEDICAL DECISION MAKING - ED course Complexity details: reviewed old records, reviewed results, re-evaluated patient , considered differential, d/w patient ED course: 66 y/o female with recent hospitalization with bid use of lasix for diuresis is profoundly dehydrated on interrogation of the IVC today. She is hypotensive and responds to IV saline with improvement in her blood pressure. Her BUN and CR are elevated from her baseline consistent with the level of dehydration. She is worked up for sepsis and Dr. Butts is consulted in the case. Plans are made for admission of this patient to our facility but we have 2 bariatric beds and both are currently in use. Dr. Mooney hospitalist at [facility] graciously agrees to accept the patient in transfer. Departure - Departure Disposition: 02 Transfer Acute Care Hosp Clinical Impression: Dehydration, Hyponatremia, Acute kidney injury Discharge Date/Time: 03/07/17 15:33
[2017-03-07 12:19] LABS: BASOPHILS % (AUTO) 0.5 %; EOSINOPHILS % (AUTO) 0.1 %; LYMPHOCYTES % (AUTO) 4.2 %; MEAN CORPUSCULAR HEMOGLOBIN 27.6 pg (27.0-31.0); MEAN CORPUSCULAR HGB CONC 32.4 g/dL (32.0-36.0); MEAN CORPUSCULAR VOLUME 85.2 fL (81.0-99.0); MEAN PLATELET VOLUME 7.9 fL (7.9-10.8); MONOCYTES % (AUTO) 3.8 %; NEUTROPHILS % (AUTO) 91.4 %; RED BLOOD COUNT 3.99 10^6/uL (4.20-5.40); RED CELL DISTRIBUTION WIDTH 15.4 % (12.0-15.0); UNCORRECTED WHITE BLOOD COUNT 41.9 x10^3/uL
[2017-03-07 12:24] LABS: WHITE BLOOD COUNT 41.9 x10^3/uL (4.8-10.8)
[2017-03-07 12:34] LABS: ALBUMIN/GLOBULIN RATIO 0.7 (1.0-2.2); BILIRUBIN,TOTAL 0.9 mg/dL (0.2-1.0); CALCIUM 8.6 mg/dL (8.5-10.3); CREATININE 3.3 mg/dL (0.4-1.0); POTASSIUM 4.3 mmol/L (3.5-5.0)
[2017-03-07 12:54] LABS: BAND NEUTROPHILS % (MANUAL) 9 %; LYMPHOCYTES % (MANUAL) 3 %; NEUTROPHILS % (MANUAL) 87 %; PLATELET MORPHOLOGY NORMAL APPEARANCE (NORMAL); TOTAL CELLS COUNTED 100
[2017-03-07 12:55] LABS: NP AUTO DIFFERENTIAL? YES; NP MAN DIFFERENTIAL? NO; PLATELET ESTIMATE, MANUAL NORMAL (130-450,000) (NORMAL)
[2017-03-07] MEDS ORDERED: HYDROcod/ACETAM 5/325 MG TABLET PO STA (14:33)
[2017-03-07] MEDS ORDERED: HYDROcod/ACETAM 5/325 MG TABLET ONE (14:35)
--- NOTE | 2017-03-07 15:16 | XRAY Preliminary Report ---
Exam: XR Chest 2 View PA/LAT IMPRESSION: Subtle right upper lobe and left basilar infiltrates versus chronic changes. [facility] SITE ID: [id number]
--- NOTE | 2017-03-07 15:18 | XRAY Report ---
EXAM: CHEST RADIOGRAPHY EXAM DATE: 03/07/2017 02:56 PM. CLINICAL HISTORY: Hypotension hypoxia. COMPARISON: 02/28/2017. TECHNIQUE: 2 views. FINDINGS: Lungs/Pleura: Localized hazy infiltrates in the right upper lobe and in the left base, versus chronic changes. No consolidation, effusion, or pneumothorax. Mediastinum: Overall heart size within normal limits and unchanged. Upper lobe vessels not distended. Other: Degenerative changes. IMPRESSION: Subtle right upper lobe and left basilar infiltrates versus chronic changes. [facility] Referring Provider Line: [phone] SITE ID: [id number]
[2017-03-07 15:28] VITALS: BP 102/48
== END 2017-03-07 15:33 | disposition short-term general hospital (02) ==
LOC: EDUNIT# → ED 11:40
DX: E86.0 Dehydration (principal); E87.1 Hypo-osmolality and hyponatremia; N17.9 Acute kidney failure, unspecified; I95.9 Hypotension, unspecified; R41.0 Disorientation, unspecified; R00.0 Tachycardia, unspecified; I45.10 Unspecified right bundle-branch block; I11.0 Hypertensive heart disease with heart failure; I50.30 Unspecified diastolic (congestive) heart failure; E11.42 Type 2 diabetes mellitus with diabetic polyneuropathy; Z79.4 Long term (current) use of insulin; J44.9 Chronic obstructive pulmonary disease, unspecified; S80.211A Abrasion, right knee, initial encounter; X58.XXXA Exposure to other specified factors, initial encounter; E66.01 Morbid (severe) obesity due to excess calories; Z68.44 Body mass index [BMI] 60.0-69.9, adult; Z79.82 Long term (current) use of aspirin; Z87.891 Personal history of nicotine dependence
CPT/HCPCS: 36415; 71020; 80053; 83605; 83690; 83880; 84484; 85025; 87040; 93005; 93010; 96360; 96361; 99284; 99285; A9270

== ENCOUNTER 2017-03-07 15:30 | Outpatient (CLI) | payer MEDICAID | END 2017-03-07 15:31 | disposition short-term general hospital (02) | LOC: EMS 15:30 | PROVIDERS: ATTEND Surgery | DX: E86.0 Dehydration (principal) | CPT/HCPCS: A0425; A0426 ==

== ENCOUNTER 2017-03-27 15:05 | Outpatient (CLI) | payer MEDICAID ==
[2017-03-27 19:45] LABS: BASOPHILS # (AUTO) 0.1 10^3/uL (0.0-0.1); BASOPHILS % (AUTO) 0.5 %; EOSINOPHILS # (AUTO) 0.2 10^3/uL (0.0-0.7); EOSINOPHILS % (AUTO) 1.6 %; HCT - HEMATOCRIT 40.4 % (37.0-47.0); HGB - HEMOGLOBIN 12.9 g/dL (12.0-16.0); LYMPHOCYTES # (AUTO) 1.5 10^3/uL (1.5-3.5); LYMPHOCYTES % (AUTO) 13.2 %; MEAN CORPUSCULAR HGB CONC 31.8 g/dL (32.0-36.0); MEAN CORPUSCULAR VOLUME 87.8 fL (81.0-99.0); MEAN PLATELET VOLUME 8.6 fL (7.9-10.8); MONOCYTES # (AUTO) 0.8 10^3/uL (0.0-1.0); MONOCYTES % (AUTO) 6.7 %; NEUTROPHILS # (AUTO) 8.8 10^3/uL (1.5-6.6); NUCLEATED RED BLOOD CELLS AUTO 0.1 /100WBC; RED BLOOD COUNT 4.61 10^6/uL (4.20-5.40); RED CELL DISTRIBUTION WIDTH 15.6 % (12.0-15.0); UNCORRECTED WHITE BLOOD COUNT 11.3 x10^3/uL; WHITE BLOOD COUNT 11.3 x10^3/uL (4.8-10.8)
[2017-03-27 20:14] LABS: HEMOGLOBIN A1C 0.81 g/dL
[2017-03-27 20:23] LABS: ALBUMIN/GLOBULIN RATIO 0.9 (1.0-2.2); BILIRUBIN,TOTAL 0.7 mg/dL (0.2-1.0); BUN - BLOOD UREA NITROGEN 19 mg/dL (6-20); CALCIUM 9.3 mg/dL (8.5-10.3); CARBON DIOXIDE - CO2 33 mmol/L (21-32); CHLORIDE 96 mmol/L (101-111); CHOL/HDL RATIO 3.2 (<4.4); CHOLESTEROL 139 mg/dL; GFR - MDRD 56 (>89); GLUCOSE 178 mg/dL (70-100); HDL CHOLESTEROL 43 mg/dL; LDL/HDL RATIO 1.7 (<4.4); POTASSIUM 4.4 mmol/L (3.5-5.0); SODIUM 138 mmol/L (135-145); TOTAL PROTEIN 7.9 g/dL (6.7-8.2); TRIGLYCERIDES 124 mg/dL; VLDL CHOLESTEROL 25 mg/dL
== END 2017-03-27 15:06 ==
LOC: LAB.N 15:05
PROVIDERS: ATTEND Nurse Practitioner Gerontology
DX: I10 Essential (primary) hypertension (principal); E11.40 Type 2 diabetes mellitus with diabetic neuropathy, unspecified; Z13.9 Encounter for screening, unspecified
CPT/HCPCS: 36415; 80053; 80061; 83036; 83880; 84443; 85025

== ENCOUNTER 2017-07-06 15:24 | Outpatient (CLI) | payer MEDICAID ==
[2017-07-06 13:25] LABS: CALCIUM 9.1 mg/dL (8.5-10.3); CREATININE 0.8 mg/dL (0.4-1.0)
[2017-07-06 13:54] LABS: HEMOGLOBIN A1C 0.66 g/dL
== END 2017-07-06 15:25 | disposition home or self-care (01) ==
LOC: LAB.N 15:24
PROVIDERS: ATTEND Family Medicine
DX: E11.40 Type 2 diabetes mellitus with diabetic neuropathy, unspecified (principal)
CPT/HCPCS: 36415; 80048; 83036

== ENCOUNTER 2017-11-22 20:30 | Outpatient (CLI) | payer MEDICARE, MEDICAID ==
[2017-11-22 12:31] LABS: BASOPHILS # (AUTO) 0.1 10^3/uL (0.0-0.1); BASOPHILS % (AUTO) 0.5 %; EOSINOPHILS # (AUTO) 0.2 10^3/uL (0.0-0.7); EOSINOPHILS % (AUTO) 1.5 %; HGB - HEMOGLOBIN 13.6 g/dL (12.0-16.0); LYMPHOCYTES # (AUTO) 1.9 10^3/uL (1.5-3.5); MEAN CORPUSCULAR HEMOGLOBIN 28.4 pg (27.0-31.0); MEAN CORPUSCULAR HGB CONC 32.5 g/dL (32.0-36.0); MEAN CORPUSCULAR VOLUME 87.2 fL (81.0-99.0); MEAN PLATELET VOLUME 8.2 fL (7.9-10.8); MONOCYTES # (AUTO) 0.8 10^3/uL (0.0-1.0); MONOCYTES % (AUTO) 5.4 %; NEUTROPHILS # (AUTO) 11.9 10^3/uL (1.5-6.6); NEUTROPHILS % (AUTO) 79.6 %; PLT - PLATELET COUNT 347 10^3/uL (130-450); RED BLOOD COUNT 4.78 10^6/uL (4.20-5.40); RED CELL DISTRIBUTION WIDTH 14.9 % (12.0-15.0)
[2017-11-22 13:04] LABS: HB2 TOTAL 14.7 g/dL; HEMOGLOBIN A1C 0.83 g/dL; HEMOGLOBIN A1C % 7.3 % (4.6-6.2)
[2017-11-22 14:07] LABS: ALBUMIN 3.6 g/dL (3.2-5.5); ALBUMIN/GLOBULIN RATIO 0.9 (1.0-2.2); BILIRUBIN,TOTAL 0.8 mg/dL (0.2-1.0); CALCIUM 9.1 mg/dL (8.5-10.3); CREATININE 0.9 mg/dL (0.4-1.0); TOTAL PROTEIN 7.5 g/dL (6.7-8.2)
== END 2017-11-22 20:31 | disposition home or self-care (01) ==
LOC: LAB.N 20:30
PROVIDERS: ATTEND Family Medicine
DX: E11.40 Type 2 diabetes mellitus with diabetic neuropathy, unspecified (principal)
CPT/HCPCS: 36415; 80053; 83036; 85025

== ENCOUNTER 2018-02-26 13:05 | Outpatient (CLI) | payer MEDICAID, MEDICARE ==
--- NOTE | 2018-02-26 15:12 | XRAY Report ---
THREE VIEW RIGHT THUMB: 02/26/2018 CLINICAL INDICATION: Pain. FINDINGS: AP, lateral, oblique views of the right thumb demonstrate mild degenerative changes of the first carpometacarpal joint. There is no evidence of acute fracture or dislocation. Soft tissue swelling is noted. IMPRESSION: OSTEOARTHRITIS. NO EVIDENCE OF ACUTE FRACTURE. TD: 02/26/2018 15:04
--- NOTE | 2018-02-26 15:13 | XRAY Report ---
THREE VIEW LEFT WRIST: 02/26/2018 CLINICAL INDICATION: Pain. FINDINGS: AP, lateral, oblique views of the right wrist demonstrate mild osteoarthritis of the first carpometacarpal joint. There is no evidence of acute fracture or dislocation. No foreign body is seen in the soft tissues. IMPRESSION: MILD OSTEOARTHRITIS. TD: 02/26/2018 15:02
== END 2018-02-26 13:06 | disposition home or self-care (01) ==
LOC: DI.N 13:05
PROVIDERS: ATTEND Family Medicine
DX: M79.644 Pain in right finger(s) (principal); M18.11 Unilateral primary osteoarthritis of first carpometacarpal joint, right hand; Z87.81 Personal history of (healed) traumatic fracture
CPT/HCPCS: 73140

== ENCOUNTER 2018-04-26 13:32 | Outpatient (CLI) | payer MEDICARE, MEDICAID ==
[2018-04-26] MEDS ORDERED: ALBUTEROL NEB 2.5 MG/3 ML INH ONE (14:00)
== END 2018-04-26 13:33 | disposition home or self-care (01) ==
LOC: RT 13:32
PROVIDERS: ATTEND Family Medicine
DX: E66.2 Morbid (severe) obesity with alveolar hypoventilation (principal)
CPT/HCPCS: 94010

== ENCOUNTER 2018-07-12 09:34 | Outpatient (CLI) | payer MEDICARE, MEDICAID ==
[2018-07-12 14:38] LABS: BASOPHILS % (AUTO) 0.4 %; EOSINOPHILS # (AUTO) 0.2 10^3/uL (0.0-0.7); EOSINOPHILS % (AUTO) 2.2 %; HGB - HEMOGLOBIN 13.9 g/dL (12.0-16.0); LYMPHOCYTES # (AUTO) 1.6 10^3/uL (1.5-3.5); LYMPHOCYTES % (AUTO) 15.4 %; MEAN CORPUSCULAR HEMOGLOBIN 29.5 pg (27.0-31.0); MEAN CORPUSCULAR HGB CONC 33.3 g/dL (32.0-36.0); MEAN CORPUSCULAR VOLUME 88.8 fL (81.0-99.0); MEAN PLATELET VOLUME 7.9 fL (7.9-10.8); MONOCYTES # (AUTO) 0.7 10^3/uL (0.0-1.0); MONOCYTES % (AUTO) 6.2 %; NEUTROPHILS # (AUTO) 8.1 10^3/uL (1.5-6.6); NEUTROPHILS % (AUTO) 75.8 %; PLT - PLATELET COUNT 346 10^3/uL (130-450); RED CELL DISTRIBUTION WIDTH 14.7 % (12.0-15.0); WHITE BLOOD COUNT 10.7 x10^3/uL (4.8-10.8)
[2018-07-12 15:50] LABS: ALBUMIN 3.6 g/dL (3.2-5.5); ALBUMIN/GLOBULIN RATIO 0.9 (1.0-2.2); ALKALINE PHOSPHATASE 104 IU/L (42-121); ALT ALANINE AMINOTRANSFERASE 15 IU/L (10-60); AST ASPARTATE AMINOTRANSFERASE 17 IU/L (10-42); BILIRUBIN,TOTAL 0.5 mg/dL (0.2-1.0); BUN - BLOOD UREA NITROGEN 21 mg/dL (6-20); CALCIUM 9.4 mg/dL (8.5-10.3); CARBON DIOXIDE - CO2 31 mmol/L (21-32); CHLORIDE 98 mmol/L (101-111); CHOL/HDL RATIO 3.2 (<4.4); CHOLESTEROL 164 mg/dL; CREATININE 0.8 mg/dL (0.4-1.0); GFR - MDRD 72 (>89); GLUCOSE 129 mg/dL (70-100); HDL CHOLESTEROL 51 mg/dL; LDL CHOLESTEROL,CALCULATED 67 mg/dL; LDL/HDL RATIO 1.3 (<4.4); SODIUM 137 mmol/L (135-145); TOTAL PROTEIN 7.8 g/dL (6.7-8.2); VLDL CHOLESTEROL 46 mg/dL
[2018-07-12 20:42] LABS: HB2 TOTAL 15.1 g/dL; HEMOGLOBIN A1C 0.98 g/dL; HEMOGLOBIN A1C % 8.1 % (4.6-6.2)
== END 2018-07-12 09:35 | disposition home or self-care (01) ==
LOC: LAB.N 09:34
PROVIDERS: ATTEND Family Medicine
DX: E11.9 Type 2 diabetes mellitus without complications (principal); E66.01 Morbid (severe) obesity due to excess calories; I10 Essential (primary) hypertension
CPT/HCPCS: 36415; 80053; 80061; 83036; 83721; 84443; 85025

== ENCOUNTER 2018-07-26 07:43 | Outpatient (CLI) | payer MEDICARE, MEDICAID | END 2018-07-26 07:44 | disposition critical access hospital (66) | LOC: EMS 07:43 | PROVIDERS: ATTEND Surgery | DX: R06.02 Shortness of breath (principal); R05 Cough | CPT/HCPCS: A0425; A0429 ==

== ENCOUNTER 2018-07-26 08:02 | Inpatient (IN) | payer MEDICARE, MEDICAID ==
[2018-07-26 08:33] LABS: BASOPHILS # (AUTO) 0.2 10^3/uL (0.0-0.1); BASOPHILS % (AUTO) 0.5 %; EOSINOPHILS % (AUTO) 0.1 %; HGB - HEMOGLOBIN 13.2 g/dL (12.0-16.0); LYMPHOCYTES # (AUTO) 0.9 10^3/uL (1.5-3.5); LYMPHOCYTES % (AUTO) 2.6 %; MEAN CORPUSCULAR HEMOGLOBIN 29.7 pg (27.0-31.0); MEAN CORPUSCULAR HGB CONC 33.6 g/dL (32.0-36.0); MEAN CORPUSCULAR VOLUME 88.4 fL (81.0-99.0); MEAN PLATELET VOLUME 7.6 fL (7.9-10.8); MONOCYTES # (AUTO) 2.8 10^3/uL (0.0-1.0); MONOCYTES % (AUTO) 8.2 %; NEUTROPHILS # (AUTO) 30.4 10^3/uL (1.5-6.6); NEUTROPHILS % (AUTO) 88.6 %; PLT - PLATELET COUNT 312 10^3/uL (130-450); RED BLOOD COUNT 4.47 10^6/uL (4.20-5.40); RED CELL DISTRIBUTION WIDTH 13.9 % (12.0-15.0); WHITE BLOOD COUNT 34.3 x10^3/uL (4.8-10.8)
--- NOTE | 2018-07-26 08:33 | ED Physician Documentation ---
PD HPI DYSPNEA - Stated complaint Stated Complaint: COUGH / SOA - Chief complaint Chief Complaint: Resp - History obtained from History obtained from: Patient, EMS - History of Present Illness Timing - onset: Yesterday Timing - onset during: Rest Timing - details: Still present Associated symptoms: Cough, Chest pain / discomfort (right-sided) Similar symptoms before: Diagnosis (Obstructive sleep apnea, CHF.) - Additional information Additional information: The patient is a 68-year-old morbidly obese female who arrives via ambulance complaining of difficulty breathing and right-sided chest discomfort. She has had nonproductive cough, with shortness of breath getting progressively worse since yesterday. She reports chills, but denies fever. She complains of spasms in her lower back, with pressure in her right chest, "like it is pressing on my lungs." She denies abdominal pain, nausea or vomiting. Review of her medical records reveals hospitalization in January 2017 for metabolic encephalopathy and respiratory acidosis with acute hyperkalemia and hypoxia. She had to be transferred to [facility] at that time for dialysis for acute on chronic renal failure. She is treated for type 2 diabetes, with complications of peripheral neuropathy and visual loss. She also has history of CHF, gastroesophageal reflux, obstructive sleep apnea, and osteoarthritis with chronic back pain. She quit smoking cigarettes about 30 years ago. Review of Systems Constitutional: reports: Chills, Fatigue Ears: denies: Tinnitus/ringing Nose: denies: Congestion Throat: denies: Sore throat Cardiac: reports: Chest pain / pressure (right-sided.), Pedal edema (chronically, with no recent change.) Respiratory: reports: Dyspnea, Cough GI: denies: Abdominal Pain, Nausea, Vomiting : denies: Dysuria Skin: reports: Rash (Chronic rash on right anterior chest.) Musculoskeletal: reports: Extremity swelling (chronically). 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 : None, Incontinence HEENT: Chronic vision loss, Other Psych: Depression Musculoskeletal: Osteoarthritis, Chronic back pain Derm: Psoriasis, Other - Past Surgical History Past Surgical History: No - Present Medications Home Medications: Ambulatory Orders Medication Instructions Recorded Confirmed Amlodipine Besylate 10 mg PO DAILY 12/13/13 07/26/18 Atorvastatin Calcium [Lipitor] 10 mg PO QPM 12/13/13 07/26/18 Nortriptyline [Pamelor] 100 mg PO QPM 12/13/13 07/26/18 Omeprazole [Prilosec] 20 mg PO QDAC 12/13/13 07/26/18 Montelukast [Singulair] 10 mg PO DAILY 12/21/14 07/26/18 Aspirin [Aspir 81] 81 mg PO DAILY 09/20/15 07/26/18 Meclizine HCl [Travel Sickness] 25 mg PO BID 09/20/15 07/26/18 Duloxetine HCl 60 mg PO QPM 01/05/17 07/26/18 Albuterol Sulfate [Proair Hfa 2 puffs INH Q4H PRN 01/06/17 07/26/18 Inhaler] Fluticasone [Flonase] 1 sprays ROHITH BID 01/06/17 07/26/18 Furosemide 40 mg PO DAILY PRN 02/28/17 07/26/18 Potassium Chloride 10 meq PO DAILY PRN 02/28/17 07/26/18 Acetaminophen/Diphenhydramine 1 tab PO QPM PRN 07/26/18 07/26/18 [Tylenol Pm Ex-Strength Caplet] Docusate Sodium 100 mg PO BID 07/26/18 07/26/18 Fluticasone 110 Mcg [Flovent] 1 puffs INH BID 07/26/18 07/26/18 Gabapentin 100 mg PO BID 07/26/18 07/26/18 Insulin Aspart [NovoLOG] 10 units SUBQ TIDWM 07/26/18 07/26/18 Insulin Glargine [Lantus Solostar] 60 mg SUBQ QPM 07/26/18 07/26/18 Lisinopril 10 mg PO DAILY 07/26/18 07/26/18 Multivitamin [Theragran] 1 tab PO DAILY 07/26/18 07/26/18 diphenhydrAMINE HCl 50 mg PO QPM 07/26/18 07/26/18 [Diphenhydramine HCl] - Allergies Allergies/Adverse Reactions: Allergies Allergy/AdvReac Type Severity Reaction Status Date / Time cephalexin monohydrate * Allergy Unknown Verified 07/26/18 08:10 [From Keflex] codeine Allergy Itching Verified 07/26/18 08:10 morphine Allergy Emesis Verified 07/26/18 08:10 Penicillins Allergy Hives Verified 07/26/18 08:10 - Social History Does the pt smoke?: No Smoking Status: Never smoker Does the pt drink ETOH?: No Does the pt have substance abuse?: No - Immunizations Immunizations are current?: Yes - POLST Patient has POLST: No Results - Vitals Vitals: Vital Signs - 24 hr 07/26/18 07/26/18 07/26/18 08:07 08:12 09:19 Temperature 36.6 C Heart Rate 106 H 95 Respiratory 22 20 Rate Blood Pressure 105/62 153/88 H O2 Saturation 90 L 93 95 07/26/18 07/26/18 10:43 12:29 Temperature Heart Rate 92 88 Respiratory 16 20 Rate Blood Pressure 142/77 H 113/73 O2 Saturation 95 96 Oxygen O2 Source Nasal cannula Oxygen Flow Rate 2 - EKG (time done) 08:33 Rate: Rate (enter#) (99) Rhythm: NSR [place]: Normal Intervals: Normal [place] QRS: Normal Ischemia: Normal ST segments Compare to prior EKG: Changed from prior EKG (Compared to 03/07/2017, RBBB is no longer present.) Computer interpretation: Agree with computer - Labs Labs: Laboratory Tests 07/26/18 07/26/18 07/26/18 08:20 08:20 08:20 WBC 34.3 H RBC 4.47 Hgb 13.2 Hct 39.5 MCV 88.4 MCH 29.7 MCHC 33.6 RDW 13.9 Plt Count 312 MPV 7.6 L Neut # (Auto) 30.4 H Lymph # (Auto) 0.9 L [place] # (Auto) 2.8 H Eos # (Auto) 0.0 Baso # (Auto) 0.2 H Absolute Nucleated RBC 0.00 Nucleated RBC % 0.0 Manual Slide Review Indicated Platelet Estimate NORMAL (130-450,000) Sodium 136 Potassium 4.2 Chloride 100 L Carbon Dioxide 27 Anion Gap 9.0 BUN 20 Creatinine 0.9 Estimated GFR (MDRD) 63 L Glucose 148 H Lactic Acid Calcium 8.6 Total Bilirubin 1.0 AST 24 ALT 14 Alkaline Phosphatase 108 Troponin I < 0.04 B-Natriuretic Peptide Total Protein 7.1 Albumin 3.3 Globulin 3.8 Albumin/Globulin Ratio 0.9 L Lipase 13 L Urine Color Urine Clarity Urine pH Ur Specific [place] Urine Protein Urine Glucose (UA) Urine Ketones Urine Occult Blood Urine Nitrite Urine Bilirubin Urine Urobilinogen Ur Leukocyte Esterase Ur Microscopic Review Urine Culture Comments Influenza A (Rapid) Influenza B (Rapid) 07/26/18 07/26/18 07/26/18 08:20 08:42 09:27 WBC RBC Hgb Hct MCV MCH MCHC RDW Plt Count MPV Neut # (Auto) Lymph # (Auto) [place] # (Auto) Eos # (Auto) Baso # (Auto) Absolute Nucleated RBC Nucleated RBC % Manual Slide Review Platelet Estimate Sodium Potassium Chloride Carbon Dioxide Anion Gap BUN Creatinine Estimated GFR (MDRD) Glucose Lactic Acid 0.8 Calcium Total Bilirubin AST ALT Alkaline Phosphatase Troponin I B-Natriuretic Peptide 46 Total Protein Albumin Globulin Albumin/Globulin Ratio Lipase Urine Color YELLOW Urine Clarity CLEAR Urine pH 6.5 Ur Specific [place] 1.015 Urine Protein NEGATIVE Urine Glucose (UA) NEGATIVE Urine Ketones NEGATIVE Urine Occult Blood NEGATIVE Urine Nitrite NEGATIVE Urine Bilirubin NEGATIVE Urine Urobilinogen 0.2 (NORMAL) Ur Leukocyte Esterase NEGATIVE Ur Microscopic Review NOT INDICATED Urine Culture Comments NOT INDICATED Influenza A (Rapid) Influenza B (Rapid) 07/26/18 09:40 WBC RBC Hgb Hct MCV MCH MCHC RDW Plt Count MPV Neut # (Auto) Lymph # (Auto) [place] # (Auto) Eos # (Auto) Baso # (Auto) Absolute Nucleated RBC Nucleated RBC % Manual Slide Review Platelet Estimate Sodium Potassium Chloride Carbon Dioxide Anion Gap BUN Creatinine Estimated GFR (MDRD) Glucose Lactic Acid Calcium Total Bilirubin AST ALT Alkaline Phosphatase Troponin I B-Natriuretic Peptide Total Protein Albumin Globulin Albumin/Globulin Ratio Lipase Urine Color Urine Clarity Urine pH Ur Specific [place] Urine Protein Urine Glucose (UA) Urine Ketones Urine Occult Blood Urine Nitrite Urine Bilirubin Urine Urobilinogen Ur Leukocyte Esterase Ur Microscopic Review Urine Culture Comments Influenza A (Rapid) Negative Influenza B (Rapid) Negative - Rads (name of study) CXR Radiology: Prelim report reviewed, EMP read contemporaneously, See rad report (New ovoid right upper lobe opacity, may represent infiltrate or mass. Contrast enhanced chest CT is recommended for further evaluation.) PD MEDICAL DECISION MAKING - ED course Complexity details: reviewed old records, reviewed results, re-evaluated patient, considered differential, d/w patient, d/w polymer materials consultant ED course: The patient's presentation is significant for right upper lobe pneumonia with hypoxia, and with a significantly elevated white blood count of 34.8. She has a past history of chronic renal insufficiency, but her BUN and creatinine today are within normal limits at 20 and 0.9. In addition she has history of insulin- dependent diabetes. Her blood sugar today is 148. Influenza swab is negative. Treatment in the emergency department included administration of levofloxacin 500 mg IV. (Allergies to cephalexin and penicillin) I discussed her condition with Dr. Arriola who accepts her for further evaluation and treatment. 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
[2018-07-26 08:43] LABS: ALBUMIN 3.3 g/dL (3.2-5.5); ALBUMIN/GLOBULIN RATIO 0.9 (1.0-2.2); CALCIUM 8.6 mg/dL (8.5-10.3); CREATININE 0.9 mg/dL (0.4-1.0); TOTAL PROTEIN 7.1 g/dL (6.7-8.2)
[2018-07-26 09:05] LABS: PLATELET ESTIMATE, MANUAL NORMAL (130-450,000) (NORMAL)
[2018-07-26 09:16] LABS: BILIRUBIN,URINE NEGATIVE (NEGATIVE); GLUCOSE, URINE (UA) NEGATIVE (NEGATIVE); KETONES,URINE (UA) NEGATIVE (NEGATIVE); LEUKOCYTE ESTERASE, URINE NEGATIVE (NEGATIVE); NITRITE,URINE NEGATIVE (NEGATIVE); OCCULT BLOOD,URINE NEGATIVE (NEGATIVE); PH,URINE 6.5 PH (5.0-7.5); PROTEIN,URINE NEGATIVE (NEGATIVE); UROBILINOGEN,URINE 0.2 (NORMAL) E.U./dL (NORMAL)
[2018-07-26 09:19] LABS: CLARITY,URINE CLEAR (CLEAR)
--- NOTE | 2018-07-26 09:20 | XRAY Report ---
Reason: Dyspnea and right-sided chest pain. Procedure Date: 07/26/2018 Accession Number: [id number] / [id number] Procedure: XR - Chest 2 View X-Ray CPT Code: 58207 FULL RESULT: EXAM: CHEST RADIOGRAPHY EXAM DATE: 07/26/2018 08:59 AM. CLINICAL HISTORY: Dyspnea and right-sided chest pain. COMPARISON: Chest radiograph from 03/07/2017, 09/15/2016. TECHNIQUE: 2 views. FINDINGS: Lungs/Pleura: There is ovoid opacity in the right upper lobe, which is new from the prior examination. Minimal hazy left basilar opacity has not significantly changed. No pleural effusion or pneumothorax. Mediastinum: Cardiomediastinal silhouette and pulmonary vasculature are within normal limits. Right hilar prominence has been present on prior examinations and is suspected to represent pulmonary vasculature. Other: Multilevel degenerative changes are present in the thoracic spine. IMPRESSION: New ovoid right upper lobe opacity may represent infiltrate or mass. Contrast-enhanced chest CT is recommended for further evaluation. [facility]
[2018-07-26] MEDS ORDERED: levoFLOXacin 500 MG/100 ML 500 MG/100 ML BAG IV STA (09:33)
[2018-07-26] MEDS ORDERED: HYDROcod/ACETAM 5/325 MG TABLET PO STA (09:55)
[2018-07-26] MEDS ORDERED: IOPAMIDOL-300 100 ML VIAL ONE (10:23)
[2018-07-26] MEDS ORDERED: IOPAMIDOL-300 100 ML VIAL IVP ONE ×2 (11:45)
--- NOTE | 2018-07-26 12:20 | CT Report ---
Reason: New RUL opacity in CXR, ?infiltrate vs. mass. Procedure Date: 07/26/2018 Accession Number: [id number] / [id number] Procedure: CT - Chest W/ CPT Code: FULL RESULT: EXAM: CT CHEST EXAM DATE: 07/26/2018 11:42 AM. CLINICAL HISTORY: New right upper lobe opacity in CXR, ?infiltrate vs. mass. COMPARISONS: CHEST 2 VIEW 07/26/2018 8:47 AM CHEST 2 VIEW PA/LAT 03/07/2017 2:55 PM. TECHNIQUE: Routine helical CT imaging was performed through the chest. IV contrast: 80 cc Isovue-300. Reconstructions: Coronal and sagittal. In accordance with CT protocol optimization, one or more of the following dose reduction techniques were utilized for this exam: automated exposure control, adjustment of mA and/or KV based on patient size, or use of iterative reconstructive technique. FINDINGS: Evaluation is slightly limited by streak artifact from the patient's arms. Patient is unable to raise arms above head. Lungs/Pleura: There is a lobular area of dense consolidation in the posterior superior aspect of the right upper lobe which measures approximately 6.0 x 3.9 cm in the axial plane (series 5 image 15), and 4.5 cm in craniocaudal dimension (series 7 image 39). No definite air bronchograms. Enhancing vessels appear to be running through the area of consolidation on the frontal image, without significant displacement. There is minimal atelectasis at the bilateral lung bases. Pulmonary vasculature is normal. No pericardial or pleural effusion. No pneumothorax. Mediastinum: No adenopathy or masses. The heart and great vessels are normal. Three-vessel coronary artery calcifications are present. Bones: No acute osseous have milia or bone lesion. There are mild to moderate degenerative disk changes of the thoracic spine. Visualized Abdomen: Unremarkable. Other: None. IMPRESSION: Lobular area of dense consolidation in the right upper lobe, corresponding to the opacity seen on recent prior chest radiograph. The appearance is most consistent with pneumonia. Imaging follow-up after treatment is recommended to ensure resolution and rule out underlying mass lesion. [facility]
[2018-07-26] MEDS ORDERED: SODIUM CHLORIDE FLUSH 0.9% 10 ML SYRINGE IVP PRN (13:21)
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
[2018-07-26] MEDS: IPRATROPIUM/ALBUTEROL 3 ML NEB INH PRN (15:15)
[2018-07-26] MEDS: SODIUM CHLORIDE 0.9% 1,000 ML IV SCH (16:10)
[2018-07-26] MEDS: SODIUM CHLORIDE FLUSH 0.9% 10 ML SYRINGE IVP SCH (16:11)
[2018-07-26] MEDS: HYDROmorphone 1 MG/ML CARPUJECT IVP PRN ×2 (16:13→19:33)
[2018-07-26] MEDS ORDERED: SODIUM CHLORIDE FLUSH 0.9% 10 ML SYRINGE IVP SCH (17:00)
[2018-07-26] MEDS: INSULIN ASPART 300 UNIT/3 ML PEN SUBQ SCH ×2 (17:52→21:49)
[2018-07-26] MEDS: metroNIDAZOLE 500 MG/100 ML 500 MG/100 ML BAG IV SCH (19:31)
[2018-07-26] MEDS: LISINOPRIL 5 MG TABLET PO SCH (19:31)
[2018-07-26] MEDS: IPRATROPIUM/ALBUTEROL 3 ML NEB INH SCH (20:07)
[2018-07-26] MEDS ORDERED: METOPROLOL 5 MG/5 ML VIAL IVP STA ×2 (20:43→21:18)
[2018-07-26] MEDS ORDERED: SODIUM CHLORIDE 0.9% 500 ML IV ONE (21:23)
[2018-07-26] MEDS: ATORVASTATIN 10 MG TABLET PO SCH (21:49)
[2018-07-26] MEDS: methylPREDNISolone SUCCINATE 40 MG/ML VIAL IVP SCH (21:50)
[2018-07-26] MEDS: ENOXAPARIN 40 MG/0.4 ML SYRINGE SUBQ SCH (21:50)
[2018-07-26] MEDS: FLUTICASONE NASAL SPRAY NAS SCH (21:50)
[2018-07-27] MEDS: SODIUM CHLORIDE 0.9% 1,000 ML IV SCH ×2 (00:52→16:50)
[2018-07-27] MEDS: SODIUM CHLORIDE FLUSH 0.9% 10 ML SYRINGE IVP SCH ×3 (00:52→17:06)
[2018-07-27] MEDS: HYDROmorphone 1 MG/ML CARPUJECT IVP PRN ×6 (01:36→21:48)
[2018-07-27] MEDS: SODIUM CHLORIDE FLUSH 0.9% 10 ML SYRINGE IVP PRN ×2 (01:36→06:06)
[2018-07-27] MEDS: IPRATROPIUM/ALBUTEROL 3 ML NEB INH PRN (02:21)
[2018-07-27] MEDS: metroNIDAZOLE 500 MG/100 ML 500 MG/100 ML BAG IV SCH ×3 (03:29→18:41)
[2018-07-27] MEDS: methylPREDNISolone SUCCINATE 40 MG/ML VIAL IVP SCH ×3 (06:05→21:48)
[2018-07-27 06:47] LABS: BASOPHILS % (AUTO) 0.1 %; HGB - HEMOGLOBIN 12.3 g/dL (12.0-16.0); LYMPHOCYTES % (AUTO) 2.6 %; MEAN CORPUSCULAR HEMOGLOBIN 30.2 pg (27.0-31.0); MEAN CORPUSCULAR HGB CONC 33.4 g/dL (32.0-36.0); MEAN CORPUSCULAR VOLUME 90.5 fL (81.0-99.0); MEAN PLATELET VOLUME 7.5 fL (7.9-10.8); MONOCYTES % (AUTO) 1.7 %; NEUTROPHILS % (AUTO) 95.6 %; PLT - PLATELET COUNT 265 10^3/uL (130-450); RED BLOOD COUNT 4.07 10^6/uL (4.20-5.40); RED CELL DISTRIBUTION WIDTH 14.3 % (12.0-15.0)
[2018-07-27 06:52] LABS: WHITE BLOOD COUNT 38.7 x10^3/uL (4.8-10.8)
[2018-07-27 06:53] LABS: ABNORMAL LYMPHS % (MANUAL) 0 %
[2018-07-27 06:56] LABS: ALBUMIN/GLOBULIN RATIO 0.8 (1.0-2.2); BILIRUBIN,TOTAL 1.1 mg/dL (0.2-1.0); CALCIUM 7.9 mg/dL (8.5-10.3); CREATININE 1.1 mg/dL (0.4-1.0); MAGNESIUM 1.5 mg/dL (1.7-2.8); PHOSPHORUS 4.3 mg/dL (2.5-4.6); TOTAL PROTEIN 6.7 g/dL (6.7-8.2)
[2018-07-27 07:25] LABS: BAND NEUTROPHILS % (MANUAL) 14 %; DIFFERENTIAL COMMENT MANUAL DIFFERENTIAL; LYMPHOCYTES # (MANUAL) 2.3 10^3/uL (1.5-3.5); LYMPHOCYTES % (MANUAL) 6 %; MONOCYTES # (MANUAL) 1.5 10^3/uL (0.0-1.0); NEUTROPHILS # (MANUAL) 34.8 10^3/uL (1.5-6.6); NEUTROPHILS % (MANUAL) 76 %; PLATELET ESTIMATE, MANUAL NORMAL (130-450,000) (NORMAL); RBC MORPHOLOGY (MULTIPLE) NORMAL APPEARANCE (NORMAL)
--- NOTE | 2018-07-27 07:27 | PROVIDER PROGRESS NOTE ---
Subjective - Prog Note Date Prog Note Date: 07/27/18 Prog Note Time: 07:27 - Subjective Pt reports feeling: Improved Subjective: Shaneka states that she got a fair amount of sleep and complains of ongoing chronic back and bilateral knee pain. She denies chest pain, nausea, vomiting, a new rash, productive cough or worsening shortness of breath. She believes that her breathing has become much easier. Current Medications - Current Medications Current Medications: Active Medications Albuterol/Ipratropium (Duoneb) 3 ml INH RTQ4H PRN PRN Reason: Wheezing Last Admin: 07/27/18 02:21 Dose: 3 ml Albuterol/Ipratropium (Duoneb) 3 ml INH RTQID SIMIN Last Admin: 07/27/18 11:30 Dose: 3 ml Aspirin (Ecotrin) 81 mg PO DAILY SIMIN Last Admin: 07/27/18 08:19 Dose: 81 mg Atorvastatin Calcium (Lipitor) 10 mg PO QPM SIMIN Last Admin: 07/26/18 21:49 Dose: 10 mg Enoxaparin Sodium (Lovenox) 40 mg SUBQ BID SIMIN Last Admin: 07/27/18 08:19 Dose: 40 mg Fluticasone Propionate (Flonase) 1 sprays ROHITH BID SIMIN Last Admin: 07/27/18 08:20 Dose: 1 spr Gabapentin (Neurontin) 100 mg PO BID SIMIN Hydromorphone HCl (Dilaudid Inj Carp) 1 mg IVP Q4HR PRN PRN Reason: PAIN Sodium Chloride (Normal Saline 0.9%) 1,000 mls @ 83.333 mls/hr IV .Q12H SIMIN Last Admin: 07/27/18 00:52 Dose: 83.333 mls/hr Levofloxacin (Levaquin 500 Mg/100 Ml) 500 mg in 100 mls @ 100 mls/hr IV Q24H [facility] Last Infusion: 07/27/18 09:30 Dose: Infused Metronidazole (Flagyl 500 Mg/100 Ml) 500 mg in 100 mls @ 100 mls/hr IV Q8H [facility] Last Infusion: 07/27/18 13:02 Dose: Infused Insulin Aspart (Novolog) 1 - 9 unit SUBQ 0800,1200,1700,2100 SIMIN; Protocol Last Admin: 07/27/18 12:59 Dose: 7 unit Insulin Aspart (Novolog) 5 unit SUBQ TIDWM [facility]; Protocol Last Admin: 07/27/18 12:58 Dose: 5 unit Insulin Aspart (Novolog) 1 - 9 unit SUBQ 0800,1200,1700,2100 [facility]; Protocol Insulin Glargine (Lantus Solostar) 45 unit SUBQ QDBREAKFAST [facility] Lisinopril (Zestril) 5 mg PO DAILY [facility] Last Admin: 07/27/18 08:19 Dose: 5 mg Magnesium Oxide (Mag Ox) 400 mg PO BIDWM [facility] Last Admin: 07/27/18 08:19 Dose: 400 mg Methylprednisolone (Solu-Medrol (40mg Vial)) 40 mg IVP TID [facility] Last Admin: 07/27/18 06:05 Dose: 40 mg Metoprolol Succinate (Toprol Xl) 25 mg PO DAILY [facility] Montelukast Sodium (Singulair) 10 mg PO DAILY [facility] Last Admin: 07/27/18 08:19 Dose: 10 mg Polyethylene Glycol (Miralax) 17 gm PO DAILY [facility] Last Admin: 07/27/18 08:20 Dose: 17 gm Sodium Chloride (Normal Saline Flush 0.9%) 10 ml IVP PRN PRN PRN Reason: NEEDED PER PROVIDER ORDERS Last Admin: 07/27/18 06:06 Dose: 10 ml Sodium Chloride (Normal Saline Flush 0.9%) 10 ml IVP 0100,0900,1700 [facility] Last Admin: 07/27/18 08:23 Dose: Not Given Amlodipine Besylate 10 mg PO DAILY 12/13/13 Atorvastatin Calcium [Lipitor] 10 mg PO QPM 12/13/13 Nortriptyline [Pamelor] 100 mg PO QPM 12/13/13 Omeprazole [Prilosec] 20 mg PO QDAC 12/13/13 Montelukast [Singulair] 10 mg PO DAILY 12/21/14 Aspirin [Aspir 81] 81 mg PO DAILY 09/20/15 Meclizine HCl [Travel Sickness] 25 mg PO BID 09/20/15 Duloxetine HCl 60 mg PO QPM 01/05/17 Albuterol Sulfate [Proair Hfa Inhaler] 2 puffs INH Q4H PRN 01/06/17 Fluticasone [Flonase] 1 sprays ROHITH BID 01/06/17 Furosemide 40 mg PO DAILY PRN 02/28/17 Potassium Chloride 10 meq PO DAILY PRN 02/28/17 Acetaminophen/Diphenhydramine [Tylenol Pm Ex-Strength Caplet] 1 tab PO QPM PRN 07/26/18 Docusate Sodium 100 mg PO BID 07/26/18 Fluticasone 110 Mcg [Flovent] 1 puffs INH BID 07/26/18 Gabapentin 100 mg PO BID 07/26/18 Insulin Aspart [NovoLOG] 10 units SUBQ TIDWM 07/26/18 Insulin Glargine [Lantus Solostar] 60 mg SUBQ QPM 07/26/18 Lisinopril 10 mg PO DAILY 07/26/18 Multivitamin [Theragran] 1 tab PO DAILY 07/26/18 diphenhydrAMINE HCl [Diphenhydramine HCl] 50 mg PO QPM 07/26/18 Objective - Vital Signs/Intake & Output Reviewed Vital Signs: Yes Vital Signs: Vital Signs x48h Temp Pulse Pulse Resp BP Pulse Ox 07/27/18 05:25 36.4 C L 96 18 125/65 93 07/27/18 02:22 100 22 07/27/18 01:45 72 20 92 07/26/18 23:40 36.7 C 100 16 110/52 L 94 Intake & Output: Intake & Output 07/24/18 07/25/18 07/26/18 07/27/18 23:59 23:59 23:59 23:59 Intake Total 1424 824.997 Output Total 0 Balance 1424 824.997 - Objective General Appearance: positive: No acute distress, Lethargic Eyes Bilateral: positive: PERRL, No lid inflammation Eyes: OU Conjunctivae pale ENT: positive: Pharynx nml, No signs of dehydration Neck: positive: Thyroid nml, No JVD, Trachea midline Respiratory: positive: Chest non-tender, No respiratory distress, Other (scattered crackles, diminished throughout) Cardiovascular: positive: Regular rate & rhythm, No gallop, Systolic murmur, Decreased pulse(s) Peripheral Pulses: 1+ Radial (R), 1+ Radial (L) Abdomen: positive: Non-tender, Nml bowel sounds, Other (obese, soft) Back: positive: Nml inspection Skin: positive: No rash, Warm, Dry, Pallor, Other (psoriasis patches.) Extremities: positive: Non-tender, Pedal edema (chronic BLE edema), Joint swelling Neurologic/Psychiatric: positive: Oriented x3, CN's nml (2-12), Motor nml, Weak ness, Sensory loss, Slurred/abnml speech (sluggishe speech due to IV pain meds), Depressed mood/affect Reflexes: Bicep (R): 2+, Bicep (L): 2+ - Lab Results Fish Bones: 07/27/18 06:39 07/27/18 06:39 Other Labs: Lab Results x24hrs 07/27/18 07/27/18 07/27/18 Range/Units 06:39 06:39 06:39 WBC 38.7 H* (4.8-10.8) x10^3/uL RBC 4.07 L (4.20-5.40) 10^6/uL Hgb 12.3 (12.0-16.0) g/dL Hct 36.8 L (37.0-47.0) % MCV 90.5 (81.0-99.0) fL MCH 30.2 (27.0-31.0) pg MCHC 33.4 (32.0-36.0) g/dL RDW 14.3 (12.0-15.0) % Plt Count 265 (130-450) 10^3/uL MPV 7.5 L (7.9-10.8) fL Neut # (Auto) Not Reportable (1.5-6.6) 10^3/uL Lymph # (Auto) Not Reportable (1.5-3.5) 10^3/uL [place] # (Auto) Not Reportable (0.0-1.0) 10^3/uL Eos # (Auto) Not Reportable (0.0-0.7) 10^3/uL Baso # (Auto) Not Reportable (0.0-0.1) 10^3/uL Absolute Nucleated RBC Not Reportable x10^3/uL Total Counted 100 Band Neuts % (Manual) 14 H (0 - 10) % Abnorm Lymph % (Manual) 0 % Nucleated RBC % Not Reportable /100WBC Neutrophils # (Manual) 34.8 H (1.5-6.6) 10^3/uL Lymphocytes # (Manual) 2.3 (1.5-3.5) 10^3/uL Monocytes # (Manual) 1.5 H (0.0-1.0) 10^3/uL Eosinophils # (Manual) 0.0 (0-0.7) 10^3/uL Basophils # (Manual) 0.0 (0-0.1) 10^3/uL Differential Comment MANUAL DIFFERENTIAL Manual Slide Review Platelet Estimate NORMAL (130-450,000) (NORMAL) RBC Morph Micro Appear NORMAL APPEARANCE (NORMAL) Sodium 132 L (135-145) mmol/L Potassium 4.8 (3.5-5.0) mmol/L Chloride 98 L (101-111) mmol/L Carbon Dioxide 25 (21-32) mmol/L Anion Gap 9.0 (6-13) BUN 29 H (6-20) mg/dL Creatinine 1.1 H (0.4-1.0) mg/dL Estimated GFR (MDRD) 50 L (>89) Glucose 247 H (70-100) mg/dL Lactic Acid 0.9 (0.5-2.2) mmol/L Calcium 7.9 L (8.5-10.3) mg/dL Phosphorus 4.3 (2.5-4.6) mg/dL Magnesium 1.5 L (1.7-2.8) mg/dL Total Bilirubin 1.1 H (0.2-1.0) mg/dL AST 40 (10-42) IU/L ALT 29 (10-60) IU/L Alkaline Phosphatase 145 H (42-121) IU/L Troponin I (<0.49) ng/mL B-Natriuretic Peptide (5-100) pg/mL Total Protein 6.7 (6.7-8.2) g/dL Albumin 3.0 L (3.2-5.5) g/dL Globulin 3.7 (2.1-4.2) g/dL Albumin/Globulin Ratio 0.8 L (1.0-2.2) Lipase (22-51) U/L Urine Color Urine Clarity (CLEAR) Urine pH (5.0-7.5) PH Ur Specific [place] (1.002-1.030) Urine Protein (NEGATIVE) mg/dL Urine Glucose (UA) (NEGATIVE) mg/dL Urine Ketones (NEGATIVE) mg/dL Urine Occult Blood (NEGATIVE) Urine Nitrite (NEGATIVE) Urine Bilirubin (NEGATIVE) Urine Urobilinogen (NORMAL) E.U./dL Ur Leukocyte Esterase (NEGATIVE) Ur Microscopic Review Urine Culture Comments Influenza A (Rapid) (Negative) Influenza B (Rapid) (Negative) 07/26/18 07/26/18 07/26/18 Range/Units 09:40 09:27 08:42 WBC (4.8-10.8) x10^3/uL RBC (4.20-5.40) 10^6/uL Hgb (12.0-16.0) g/dL Hct (37.0-47.0) % MCV (81.0-99.0) fL MCH (27.0-31.0) pg MCHC (32.0-36.0) g/dL RDW (12.0-15.0) % Plt Count (130-450) 10^3/uL MPV (7.9-10.8) fL Neut # (Auto) (1.5-6.6) 10^3/uL Lymph # (Auto) (1.5-3.5) 10^3/uL [place] # (Auto) (0.0-1.0) 10^3/uL Eos # (Auto) (0.0-0.7) 10^3/uL Baso # (Auto) (0.0-0.1) 10^3/uL Absolute Nucleated RBC x10^3/uL Total Counted Band Neuts % (Manual) (0 - 10) % Abnorm Lymph % (Manual) % Nucleated RBC % /100WBC Neutrophils # (Manual) (1.5-6.6) 10^3/uL Lymphocytes # (Manual) (1.5-3.5) 10^3/uL Monocytes # (Manual) (0.0-1.0) 10^3/uL Eosinophils # (Manual) (0-0.7) 10^3/uL Basophils # (Manual) (0-0.1) 10^3/uL Differential Comment Manual Slide Review Platelet Estimate (NORMAL) RBC Morph Micro Appear (NORMAL) Sodium (135-145) mmol/L Potassium (3.5-5.0) mmol/L Chloride (101-111) mmol/L Carbon Dioxide (21-32) mmol/L Anion Gap (6-13) BUN (6-20) mg/dL Creatinine (0.4-1.0) mg/dL Estimated GFR (MDRD) (>89) Glucose (70-100) mg/dL Lactic Acid 0.8 (0.5-2.2) mmol/L Calcium (8.5-10.3) mg/dL Phosphorus (2.5-4.6) mg/dL Magnesium (1.7-2.8) mg/dL Total Bilirubin (0.2-1.0) mg/dL AST (10-42) IU/L ALT (10-60) IU/L Alkaline Phosphatase (42-121) IU/L Troponin I (<0.49) ng/mL B-Natriuretic Peptide (5-100) pg/mL Total Protein (6.7-8.2) g/dL Albumin (3.2-5.5) g/dL Globulin (2.1-4.2) g/dL Albumin/Globulin Ratio (1.0-2.2) Lipase (22-51) U/L Urine Color YELLOW Urine Clarity CLEAR (CLEAR) Urine pH 6.5 (5.0-7.5) PH Ur Specific [place] 1.015 (1.002-1.030) Urine Protein NEGATIVE (NEGATIVE) mg/dL Urine Glucose (UA) NEGATIVE (NEGATIVE) mg/dL Urine Ketones NEGATIVE (NEGATIVE) mg/dL Urine Occult Blood NEGATIVE (NEGATIVE) Urine Nitrite NEGATIVE (NEGATIVE) Urine Bilirubin NEGATIVE (NEGATIVE) Urine Urobilinogen 0.2 (NORMAL) (NORMAL) E.U./dL Ur Leukocyte Esterase NEGATIVE (NEGATIVE) Ur Microscopic Review NOT INDICATED Urine Culture Comments NOT INDICATED Influenza A (Rapid) Negative (Negative) Influenza B (Rapid) Negative (Negative) 07/26/18 07/26/18 07/26/18 Range/Units 08:20 08:20 08:20 WBC (4.8-10.8) x10^3/uL RBC (4.20-5.40) 10^6/uL Hgb (12.0-16.0) g/dL Hct (37.0-47.0) % MCV (81.0-99.0) fL MCH (27.0-31.0) pg MCHC (32.0-36.0) g/dL RDW (12.0-15.0) % Plt Count (130-450) 10^3/uL MPV (7.9-10.8) fL Neut # (Auto) (1.5-6.6) 10^3/uL Lymph # (Auto) (1.5-3.5) 10^3/uL [place] # (Auto) (0.0-1.0) 10^3/uL Eos # (Auto) (0.0-0.7) 10^3/uL Baso # (Auto) (0.0-0.1) 10^3/uL Absolute Nucleated RBC x10^3/uL Total Counted Band Neuts % (Manual) (0 - 10) % Abnorm Lymph % (Manual) % Nucleated RBC % /100WBC Neutrophils # (Manual) (1.5-6.6) 10^3/uL Lymphocytes # (Manual) (1.5-3.5) 10^3/uL Monocytes # (Manual) (0.0-1.0) 10^3/uL Eosinophils # (Manual) (0-0.7) 10^3/uL Basophils # (Manual) (0-0.1) 10^3/uL Differential Comment Manual Slide Review Platelet Estimate (NORMAL) RBC Morph Micro Appear (NORMAL) Sodium 136 (135-145) mmol/L Potassium 4.2 (3.5-5.0) mmol/L Chloride 100 L (101-111) mmol/L Carbon Dioxide 27 (21-32) mmol/L Anion Gap 9.0 (6-13) BUN 20 (6-20) mg/dL Creatinine 0.9 (0.4-1.0) mg/dL Estimated GFR (MDRD) 63 L (>89) Glucose 148 H (70-100) mg/dL Lactic Acid (0.5-2.2) mmol/L Calcium 8.6 (8.5-10.3) mg/dL Phosphorus (2.5-4.6) mg/dL Magnesium (1.7-2.8) mg/dL Total Bilirubin 1.0 (0.2-1.0) mg/dL AST 24 (10-42) IU/L ALT 14 (10-60) IU/L Alkaline Phosphatase 108 (42-121) IU/L Troponin I < 0.04 (<0.49) ng/mL B-Natriuretic Peptide 46 (5-100) pg/mL Total Protein 7.1 (6.7-8.2) g/dL Albumin 3.3 (3.2-5.5) g/dL Globulin 3.8 (2.1-4.2) g/dL Albumin/Globulin Ratio 0.9 L (1.0-2.2) Lipase 13 L (22-51) U/L Urine Color Urine Clarity (CLEAR) Urine pH (5.0-7.5) PH Ur Specific [place] (1.002-1.030) Urine Protein (NEGATIVE) mg/dL Urine Glucose (UA) (NEGATIVE) mg/dL Urine Ketones (NEGATIVE) mg/dL Urine Occult Blood (NEGATIVE) Urine Nitrite (NEGATIVE) Urine Bilirubin (NEGATIVE) Urine Urobilinogen (NORMAL) E.U./dL Ur Leukocyte Esterase (NEGATIVE) Ur Microscopic Review Urine Culture Comments Influenza A (Rapid) (Negative) Influenza B (Rapid) (Negative) 07/26/18 Range/Units 08:20 WBC 34.3 H (4.8-10.8) x10^3/uL RBC 4.47 (4.20-5.40) 10^6/uL Hgb 13.2 (12.0-16.0) g/dL Hct 39.5 (37.0-47.0) % MCV 88.4 (81.0-99.0) fL MCH 29.7 (27.0-31.0) pg MCHC 33.6 (32.0-36.0) g/dL RDW 13.9 (12.0-15.0) % Plt Count 312 (130-450) 10^3/uL MPV 7.6 L (7.9-10.8) fL Neut # (Auto) 30.4 H (1.5-6.6) 10^3/uL Lymph # (Auto) 0.9 L (1.5-3.5) 10^3/uL [place] # (Auto) 2.8 H (0.0-1.0) 10^3/uL Eos # (Auto) 0.0 (0.0-0.7) 10^3/uL Baso # (Auto) 0.2 H (0.0-0.1) 10^3/uL Absolute Nucleated RBC 0.00 x10^3/uL Total Counted Band Neuts % (Manual) (0 - 10) % Abnorm Lymph % (Manual) % Nucleated RBC % 0.0 /100WBC Neutrophils # (Manual) (1.5-6.6) 10^3/uL Lymphocytes # (Manual) (1.5-3.5) 10^3/uL Monocytes # (Manual) (0.0-1.0) 10^3/uL Eosinophils # (Manual) (0-0.7) 10^3/uL Basophils # (Manual) (0-0.1) 10^3/uL Differential Comment Manual Slide Review Indicated Platelet Estimate NORMAL (130-450,000) (NORMAL) RBC Morph Micro Appear (NORMAL) Sodium (135-145) mmol/L Potassium (3.5-5.0) mmol/L Chloride (101-111) mmol/L Carbon Dioxide (21-32) mmol/L Anion Gap (6-13) BUN (6-20) mg/dL Creatinine (0.4-1.0) mg/dL Estimated GFR (MDRD) (>89) Glucose (70-100) mg/dL Lactic Acid (0.5-2.2) mmol/L Calcium (8.5-10.3) mg/dL Phosphorus (2.5-4.6) mg/dL Magnesium (1.7-2.8) mg/dL Total Bilirubin (0.2-1.0) mg/dL AST (10-42) IU/L ALT (10-60) IU/L Alkaline Phosphatase (42-121) IU/L Troponin I (<0.49) ng/mL B-Natriuretic Peptide (5-100) pg/mL Total Protein (6.7-8.2) g/dL Albumin (3.2-5.5) g/dL Globulin (2.1-4.2) g/dL Albumin/Globulin Ratio (1.0-2.2) Lipase (22-51) U/L Urine Color Urine Clarity (CLEAR) Urine pH (5.0-7.5) PH Ur Specific [place] (1.002-1.030) Urine Protein (NEGATIVE) mg/dL Urine Glucose (UA) (NEGATIVE) mg/dL Urine Ketones (NEGATIVE) mg/dL Urine Occult Blood (NEGATIVE) Urine Nitrite (NEGATIVE) Urine Bilirubin (NEGATIVE) Urine Urobilinogen (NORMAL) E.U./dL Ur Leukocyte Esterase (NEGATIVE) Ur Microscopic Review Urine Culture Comments Influenza A (Rapid) (Negative) Influenza B (Rapid) (Negative) - Diagnostic Imaging Diagnostic Imaging Results: positive: Prelim report reviewed Diagnostic Imaging Comments: Preliminary echo results: mild LVH, EF 60-65%, impaired relaxation consistent with Grade I diastolic dysfunction. Mild RV enlargement, mild RA enlargement, elevated RVSP at rest of 48 mmHg. ABX Reporting Has patient been on IV antibiotics over the past 48 hours?: Yes Assessment/Plan - Problem List (1) Right upper lobe pneumonia Impression: The patient describes the events surrounding this admission as she had a sick contact with that being her care worker who had respiratory symptoms. She took alieve and benadryl 2 days ago for worsening mid-low back pain and spasms. Yesterday she began having fever, chills, sweats, and fatigue. She had a loss of appetite, increased shortness of breath and slept horrible last night. Imaging in the ED showed a right upper lobe infiltrate verses pulmonary mass, which will need further work up. Her lactic acid was normal, although she had a very elevated WBC count of 38.7. Last she does admit to getting bilateral knee steroid injections, but that would not explain this very high WBC count. Plan: Continue IV antibiotics; Levofloxacin/Flagyl, low dose IV steroids, scheduled and PRN nebs, daily labs, and routine nursing/respiratory care. Qualifiers: Pneumonia type: aspiration pneumonia (2) Nausea Impression: The patient is reported to have eaten her breakfast very fast, and soon became very nauseated. (3) Acute urinary retention Impression: The patient may have early neurogenic bladder from having DM for several years, or this may be due to the IV narcotics that have been used to treat her ongoing back pain. The patient has not urinated since admission and bladder scan was ~2 50. Orders for an indwelling wharton. The patient denies the urge to urinate, and states that she almost always has urinary retention when she has pneumonia. Plan: Insert wharton and monitor out put. (4) Fall Impression: The patient states that she has had more frequent falls and normally calls the fire department for a lift assist. On the morning of admission, she was attempting to get to the commode, lost her balance and her sister tried to help her, but could not physically do this. EMS was called. The patient denies loosing consciousness, hitting her head or any other injuries. Today, PT reports that the patient has very poor PT participation today, and the patient stated that she believed that her sister should be helping her more at home. I have contacted social work as this patient will need a higher level of care on discharge. Plan: Continue daily PT attempts and a bg lift to the chair for meals if possible. Qualifiers: Encounter type: subsequent encounter Qualified Code(s): W19.XXXD - Unspecified fall, subsequent encounter (5) Osteoarthritis involving multiple joints on both sides of body Impression: The patient states that last , she received bilateral knee steroid joint injections by an ortho clinic for ongoing knee pain likely worsened by her super obesity. She has been getting IV dilaudid for her chronic back pain and joint pain. I will reduce the frequency today of her IV dilaudid to not make her overall condition worse. Plan: Treat pain, encourage movement and to the chair for meals. (6) Chronic back pain Impression: The patient denies the use of prescribed narcotics as her PCP does not believe in them. She has had osteoarthritis for several years. She has been given IV dilaudid, which has been helpful with her chronic pain and this acute illness. Plan: Treat pain, and encourage movement and eventual weight loss. Qualifiers: Back pain location: back pain in unspecified location (7) Diabetes mellitus type 2, insulin dependent Impression: The patient reports blood sugars that have been "all over the place" for the past few weeks, and for the past few days has lost her appetite. She states that she checks her blood sugars around 3 times per day. She is prescribed Lantus at 60 units daily, aspart 10 units TIDWMs and no orals. Her hemoglobin A1C is 7.9%, and she had an early AM sugar of 247, so I will titrate her Lantus from 30 units, to 45 units to be given this evening. This elevated level may also be due to her IV steroids which was started last night. Plan: Give Lantus 45 units daily, SSI mod dose, and routine blood sugar checks. Daily labs and encourage meals. (8) Super obesity Impression: The patient has a BMI of 59.4 and is ~ 162kg on admission. She states that she has had a weight problem all of her life. She has consequently become very immobile and is wheel chair bound, with frequent falls. Plan: Continue fall precautions, PT to evaluate and recommend weight management on discharge. (9) Generalized anxiety disorder Impression: The patient does not currently see any therapists for her mental health. Her PCP prescribes nortriptyline and duloxitine at home. These are temporarily on hold as she is having some respiratory distress. Plan: Continue to monitor for worsening mood. (10) LVH (left ventricular hypertrophy) Impression: Preliminary echo results show this disorder, in addition a grade I diastolic dysfunction is noted. She has a preserved EF of 65%. She is prescribed Norvasc at home, but is found to be tachycardic on exam, so her norvasc will remain on hold, and she will be started on Metoprolol succinate to be given daily with parameters. Plan: continue meds, monitor B/P. (11) Cor pulmonale Impression: Preliminary echo shows enlarged RV and RA, with an elevated RVSP of 48 mmHg, which shows this disorder. On exam she displays an increased abdominal girth, BLE edema and states that she has been non-compliant with her home CPAP and home oxygen due to lack of fund and the inability to qualify. Plan: continue gentle IVFs and recommend resuming home CPAP unit, home oxygen. Plan for a walking oxygen test to be performed prior to discharge.
[2018-07-27] MEDS: IPRATROPIUM/ALBUTEROL 3 ML NEB INH SCH ×4 (07:40→20:00)
[2018-07-27] MEDS ORDERED: INSULIN GLARGINE 300 UNIT/3 ML PEN SUBQ SCH ×2 (08:00→12:02)
[2018-07-27] MEDS: levoFLOXacin 500 MG/100 ML 500 MG/100 ML BAG IV SCH (08:16)
[2018-07-27 08:19] LABS: HB2 TOTAL 12.9 g/dL; HEMOGLOBIN A1C 0.81 g/dL; HEMOGLOBIN A1C % 7.9 % (4.6-6.2)
[2018-07-27] MEDS: MONTELUKAST 10 MG TABLET PO SCH (08:19)
[2018-07-27] MEDS: ASPIRIN EC 81 MG TABLET PO SCH (08:19)
[2018-07-27] MEDS: MAGNESIUM OXIDE 400 MG TABLET PO SCH ×2 (08:19→16:50)
[2018-07-27] MEDS: LISINOPRIL 5 MG TABLET PO SCH (08:19)
[2018-07-27] MEDS: ENOXAPARIN 40 MG/0.4 ML SYRINGE SUBQ SCH ×2 (08:19→20:51)
[2018-07-27] MEDS: FLUTICASONE NASAL SPRAY NAS SCH ×2 (08:20→20:50)
[2018-07-27] MEDS: POLYETHYLENE GLYCOL 3350 17 GM PACKET PO SCH (08:20)
[2018-07-27] MEDS: INSULIN ASPART 300 UNIT/3 ML PEN SUBQ SCH ×6 (08:22→20:51)
[2018-07-27] MEDS ORDERED: POLYETHYLENE GLYCOL 3350 17 GM PACKET PO SCH (09:00)
[2018-07-27] MEDS ORDERED: ONDANSETRON 4 MG/2 ML VIAL IVP PRN (13:55)
[2018-07-27] MEDS ORDERED: ONDANSETRON ODT 4 MG TABLET TL PRN (13:55)
[2018-07-27] MEDS: METOPROLOL SUCCINATE 25 MG TABLET PO SCH (14:24)
[2018-07-27] MEDS ORDERED: INSULIN ASPART 300 UNIT/3 ML PEN SUBQ SCH (17:00)
[2018-07-27] MEDS ORDERED: PETROLATUM WHITE 5 GM PACKET TOP PRN (18:03)
[2018-07-27] MEDS: diphenhydrAMINE 25 MG CAPSULE PO PRN (18:26)
[2018-07-27] MEDS: BUDESONIDE 0.5 MG/2 ML NEB INH SCH (20:00)
[2018-07-27] MEDS: GABAPENTIN 100 MG CAPSULE PO SCH (20:50)
[2018-07-27] MEDS: ATORVASTATIN 10 MG TABLET PO SCH (20:50)
[2018-07-28] MEDS: SODIUM CHLORIDE FLUSH 0.9% 10 ML SYRINGE IVP SCH ×2 (00:40→08:10)
[2018-07-28] MEDS: HYDROmorphone 1 MG/ML CARPUJECT IVP PRN (02:36)
[2018-07-28] MEDS: metroNIDAZOLE 500 MG/100 ML 500 MG/100 ML BAG IV SCH ×2 (02:36→12:02)
[2018-07-28] MEDS: SODIUM CHLORIDE FLUSH 0.9% 10 ML SYRINGE IVP PRN ×2 (02:37→05:17)
[2018-07-28] MEDS: methylPREDNISolone SUCCINATE 40 MG/ML VIAL IVP SCH (05:11)
[2018-07-28] MEDS: diphenhydrAMINE 25 MG CAPSULE PO PRN (05:16)
[2018-07-28] MEDS: SODIUM CHLORIDE 0.9% 1,000 ML IV SCH (05:22)
[2018-07-28 05:24] LABS: LYMPHOCYTES % (AUTO) 1.7 %; MEAN CORPUSCULAR HEMOGLOBIN 29.1 pg (27.0-31.0); MEAN CORPUSCULAR HGB CONC 31.7 g/dL (32.0-36.0); MEAN CORPUSCULAR VOLUME 91.8 fL (81.0-99.0); MONOCYTES % (AUTO) 1.5 %; NEUTROPHILS % (AUTO) 96.8 %; PLT - PLATELET COUNT 295 10^3/uL (130-450); RED BLOOD COUNT 4.13 10^6/uL (4.20-5.40); RED CELL DISTRIBUTION WIDTH 14.5 % (12.0-15.0); WHITE BLOOD COUNT 28.7 x10^3/uL (4.8-10.8)
[2018-07-28 05:28] LABS: ABNORMAL LYMPHS % (MANUAL) 0 %
[2018-07-28 05:34] LABS: ALBUMIN 2.8 g/dL (3.2-5.5); ALBUMIN/GLOBULIN RATIO 0.7 (1.0-2.2); BILIRUBIN,TOTAL 0.7 mg/dL (0.2-1.0); CALCIUM 7.9 mg/dL (8.5-10.3); MAGNESIUM 1.7 mg/dL (1.7-2.8); TOTAL PROTEIN 6.7 g/dL (6.7-8.2)
[2018-07-28 05:55] LABS: BAND NEUTROPHILS % (MANUAL) 18 %; DIFFERENTIAL COMMENT MANUAL DIFFERENTIAL; LYMPHOCYTES # (MANUAL) 1.7 10^3/uL (1.5-3.5); LYMPHOCYTES % (MANUAL) 6 %; MONOCYTES # (MANUAL) 1.1 10^3/uL (0.0-1.0); NEUTROPHILS # (MANUAL) 25.8 10^3/uL (1.5-6.6); NEUTROPHILS % (MANUAL) 72 %; PLATELET ESTIMATE, MANUAL NORMAL (130-450,000) (NORMAL); RBC MORPHOLOGY (MULTIPLE) NORMAL APPEARANCE (NORMAL)
[2018-07-28] MEDS ORDERED: PANTOPRAZOLE 40 MG TABLET PO SCH (07:00)
[2018-07-28] MEDS: BUDESONIDE 0.5 MG/2 ML NEB INH SCH (07:40)
[2018-07-28 08:00] VITALS: BP 115/64
[2018-07-28] MEDS ORDERED: INSULIN GLARGINE 300 UNIT/3 ML PEN SUBQ SCH (08:00)
[2018-07-28] MEDS: INSULIN ASPART 300 UNIT/3 ML PEN SUBQ SCH ×4 (08:03→12:09)
[2018-07-28] MEDS: GABAPENTIN 100 MG CAPSULE PO SCH (08:08)
[2018-07-28] MEDS: LISINOPRIL 5 MG TABLET PO SCH (08:08)
[2018-07-28] MEDS: ENOXAPARIN 40 MG/0.4 ML SYRINGE SUBQ SCH (08:08)
[2018-07-28] MEDS: MONTELUKAST 10 MG TABLET PO SCH (08:08)
[2018-07-28] MEDS: ASPIRIN EC 81 MG TABLET PO SCH (08:08)
[2018-07-28] MEDS: METOPROLOL SUCCINATE 25 MG TABLET PO SCH (08:08)
[2018-07-28] MEDS: MAGNESIUM OXIDE 400 MG TABLET PO SCH (08:09)
[2018-07-28] MEDS: FLUTICASONE NASAL SPRAY NAS SCH (08:09)
[2018-07-28] MEDS: POLYETHYLENE GLYCOL 3350 17 GM PACKET PO SCH (08:10)
[2018-07-28] MEDS: levoFLOXacin 500 MG/100 ML 500 MG/100 ML BAG IV SCH (08:23)
--- NOTE | 2018-07-28 08:36 | Discharge Plan ---
Discharge Plan Disposition: Home, Self Care Condition: Good Prescriptions: Clindamycin HCl [Clindamycin 150MG CAP] 450 mg PO TID #45 capsule Furosemide 20 mg PO DAILY #30 tablet Lisinopril [Zestril] 5 mg PO DAILY #30 tablet Metoprolol Succinate [Toprol Xl] 25 mg PO DAILY #30 tablet Prednisone 10 mg PO DAILY #16 tab.ds.pk Saccharomyces Boulardii [Florastor] 250 mg PO BID #60 capsule Spironolactone [Aldactone] 25 mg PO DAILY #30 tablet Diet: Diabetic Activity Restrictions: No Restrictions Shower Restrictions: No Driving Restrictions: Yes Weight Bearing: Full Weight Additional Instructions or Follow Up instructions: You were admitted for right upper lobe pneumonia and treated with antibiotics, low dose steroids, and nebulizers. The radiology report from your chest CT states that the image in most consistent with pneumonia, but it is recommended that you get a follow up image after your antibiotics are finished to rule out any underlying mass lesion (tumor). Due to the location of this pneumonia you were treated as if you may have aspirated (gotten something in your lungs without knowing it). We recommend a swallow study out patient to rule out aspiration as a cause of your pneumonia. You should continue oral antibiotics at home for the next 5 days, along with a steroid taper. You should also take a probiotic for the next month as a preventative since the antibiotics used to treat this pneumonia can take away the good bacteria in your intestinal tract. You had back and knee pain and were given IV dilaudid, but this caused some extra itching. A echocardiogram was completed and showed cor pulmonale, which means that you have enlarged right atria and ventricle, in addition to having a thick left ventricle. The most likely cause of this in your case is the untreated sleep apnea, so I have put in an order to qualify you for home oxygen, and in fact, you are now qualified with a few last details pending. A wharton catheter was placed since you had urinary retention, and removed prior to discharge. You are free to return home today if you are able to urinate on your own. Please STOP the norvasc, and continue the metroprolol daily to better control your heart rates and keep your heart efficient. Please STOP the potassium supplement, and continue the spironolactone with a lower dose of furosemide. Please see your primary care provider within one week. No Smoking: If you smoke, Please STOP! Call for help. Follow-up with: Tian Garcia MD [Primary Care Provider] -
[2018-07-28] MEDS ORDERED: SPIRONOLACTONE 25 MG TABLET PO SCH (09:00)
[2018-07-28] MEDS ORDERED: FUROSEMIDE 40 MG TABLET PO SCH (09:00)
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
[2018-07-28] MEDS: IPRATROPIUM/ALBUTEROL 3 ML NEB INH SCH (10:45)
[2018-07-28] MEDS ORDERED: methylPREDNISolone SUCCINATE 40 MG/ML VIAL IVP SCH (17:00)
--- NOTE | 2018-07-29 20:41 | ED Physician Documentation ---
ED Addendum - Addendum Addendum: 07/29/18 20:39 This addendum is to report physical exam findings that were inadvertently omitted from my report of 07/26/18. VS: tachycardic; low pulse oximetry of 90% on room air. Gen: Alert, morbidly obese, appears fatigued and dyspneic. Eyes: Right eye blindness. ENT: dry buccal mucosa; oropharynx mildly erythematous. Neck: No JVD; Mildly enlarged anterior cervical nodes. Respiratory: Diminished breath sounds bilaterally, with faint rhonchi on the right. CardioVascular: RRR Abd: soft, nontender. Back: No CVA tenderness. Skin: Warm, dry, no rash. Extremities: Bilateral pedal edema; no calf tenderness. Neuro: Alert, oriented x 3; No focal motor or sensory deficit. 07/29/18 20:41
== END 2018-07-28 14:30 | disposition home or self-care (01) | DRG 178 ==
LOC: EDUNIT# → ED 08:02 → MS2 13:21
PROVIDERS: ADMIT Nurse Practitioner; ATTEND Nurse Practitioner
DX: J18.1 Lobar pneumonia, unspecified organism (principal); J69.0 Pneumonitis due to inhalation of food and vomit; Z68.43 Body mass index [BMI] 50.0-59.9, adult; I13.0 Hypertensive heart and chronic kidney disease with heart failure and stage 1 through stage 4 chronic kidney disease, or unspecified chronic kidney disease; I50.9 Heart failure, unspecified; E11.22 Type 2 diabetes mellitus with diabetic chronic kidney disease; N18.9 Chronic kidney disease, unspecified; I50.30 Unspecified diastolic (congestive) heart failure; E11.39 Type 2 diabetes mellitus with other diabetic ophthalmic complication; H54.61 Unqualified visual loss, right eye, normal vision left eye; E66.01 Morbid (severe) obesity due to excess calories; M15.9 Polyosteoarthritis, unspecified; R33.9 Retention of urine, unspecified; F41.1 Generalized anxiety disorder; J45.909 Unspecified asthma, uncomplicated; I27.81 Cor pulmonale (chronic); F32.9 Major depressive disorder, single episode, unspecified; J44.9 Chronic obstructive pulmonary disease, unspecified; M47.9 Spondylosis, unspecified; Z88.1 Allergy status to other antibiotic agents; Z88.0 Allergy status to penicillin; G89.29 Other chronic pain; G47.33 Obstructive sleep apnea (adult) (pediatric); E78.5 Hyperlipidemia, unspecified; I11.0 Hypertensive heart disease with heart failure; E11.42 Type 2 diabetes mellitus with diabetic polyneuropathy; K21.9 Gastro-esophageal reflux disease without esophagitis; R09.02 Hypoxemia; R11.0 Nausea; L29.9 Pruritus, unspecified; T40.2X5A Adverse effect of other opioids, initial encounter; Y92.230 Patient room in hospital as the place of occurrence of the external cause; T41.5X6A Underdosing of therapeutic gases, initial encounter; L40.9 Psoriasis, unspecified; Z62.810 Personal history of physical and sexual abuse in childhood; Z91.120 Patient's intentional underdosing of medication regimen due to financial hardship; Z91.81 History of falling; Z79.4 Long term (current) use of insulin; Z99.3 Dependence on wheelchair; Z79.899 Other long term (current) drug therapy; Z79.51 Long term (current) use of inhaled steroids; Z87.891 Personal history of nicotine dependence; Z79.82 Long term (current) use of aspirin
CPT/HCPCS: 36415; 51701; 71046; 71260; 80053; 81001; 81003; 83036; 83605; 83690; 83735; 83880; 84100; 84484; 85025; 87086; 87275; 87276; 93005; 93306; 94640; 94761; 96365; 99284

== ENCOUNTER 2018-07-28 14:29 | Outpatient (CLI) | payer MEDICARE, MEDICAID | END 2018-07-28 14:30 | disposition home or self-care (01) | LOC: EMS 14:29 | PROVIDERS: ATTEND Surgery | DX: R53.1 Weakness (principal); E66.01 Morbid (severe) obesity due to excess calories; J18.9 Pneumonia, unspecified organism | CPT/HCPCS: A0425; A0428 ==

== ENCOUNTER 2019-11-02 11:00 | Outpatient (CLI) | payer MEDICARE, MEDICAID | END 2019-11-02 11:01 | disposition critical access hospital (66) | LOC: EMS 11:00 | PROVIDERS: ATTEND Surgery | DX: R06.02 Shortness of breath (principal) | CPT/HCPCS: A0425; A0429 ==

== ENCOUNTER 2019-11-07 19:53 | Outpatient (CLI) | payer MEDICARE, MEDICAID | END 2019-11-07 19:54 | disposition critical access hospital (66) | LOC: EMS 19:53 | PROVIDERS: ATTEND Surgery | DX: R53.1 Weakness (principal); M25.512 Pain in left shoulder; W19.XXXA Unspecified fall, initial encounter; Y92.039 Unspecified place in apartment as the place of occurrence of the external cause | CPT/HCPCS: A0425; A0429 ==

== ENCOUNTER 2019-11-07 20:13 | Emergency (ER) | payer MEDICARE, MEDICAID ==
--- NOTE | 2019-11-07 20:28 | ED Physician Documentation ---
<GhoshAshkan sims Thea - Last Filed: 11/07/19 20:28> History of Present Illness - Stated complaint Stated Complaint: WEAKNESS PD PAST MEDICAL HISTORY - Past Medical History Cardiovascular: Congestive heart failure, Hypertension, High cholesterol, Murmur Respiratory: Asthma, COPD, Sleep apnea Neuro: Head injury, Headaches, Migraines, Peripheral neuropathy Endocrine/Autoimmune: Type 2 diabetes GI: GERD, Hiatal hernia DIAMOND CLEAVER: None : Incontinence, Frequency HEENT: Chronic vision loss, Chronic sinusitis Psych: Depression, Anxiety Musculoskeletal: Osteoarthritis, Fatigue, Chronic back pain Derm: Eczema, Psoriasis - Past Surgical History Past Surgical History: No HEENT: Cataracts (left eye) - Present Medications Home Medications: Ambulatory Orders Medication Instructions Recorded Confirmed Atorvastatin Calcium [Lipitor] 10 mg PO QPM 12/13/13 11/08/19 Nortriptyline [Pamelor] 100 mg PO QPM 12/13/13 11/08/19 Omeprazole [Prilosec] 20 mg PO QDAC 12/13/13 11/08/19 Montelukast [Singulair] 10 mg PO QPM 12/21/14 11/08/19 Aspirin [Aspir 81] 81 mg PO DAILY 09/20/15 11/08/19 Meclizine HCl [Travel Sickness] 50 mg PO DAILY 09/20/15 11/08/19 Duloxetine HCl 60 mg PO DAILY 01/05/17 11/08/19 Albuterol Sulfate [Proair Hfa 2 puffs INH Q4H PRN 01/06/17 11/08/19 Inhaler] Gabapentin 300 mg PO BID 07/26/18 11/08/19 Insulin Aspart [NovoLOG] 10 units SUBQ 0800,199907/26/18 11/08/19 Insulin Glargine [Lantus Solostar] 60 units SUBQ QPM 07/26/18 11/08/19 Fluticasone 110 Mcg [Flovent] 2 puffs INH BID 11/02/19 11/08/19 Meclizine HCl 50 mg PO QPM 11/02/19 11/08/19 diphenhydrAMINE HCL 50 mg PO QPM 11/02/19 11/08/19 [Diphenhydramine HCl] Acetaminophen [Tylenol] 650 mg PO Q4HR PRN #90 tablet 11/06/19 11/08/19 Amlodipine Besylate 5 mg PO QPM #30 tablet 11/06/19 11/08/19 Fluticasone [Flonase] 1 sprays ROHITH DAILY #1 bottle 11/06/19 11/08/19 Furosemide 20 mg PO DAILY #30 tablet 11/06/19 11/08/19 HYDROcod/ACETAM 5/325 [[place] 5/325] 1 each PO Q4H PRN #15 tablet 11/06/19 11/08/19 Lisinopril [Zestril] 2.5 mg PO DAILY #30 tablet 11/06/19 11/08/19 Magnesium Oxide [Mag Ox] 40 mg PO BIDWM #60 tablet 11/06/19 11/08/19 Oxymetazoline HCl [Afrin] 15 ml NS BID #1 mist 11/06/19 11/08/19 guaiFENesin [Mucinex] 600 mg PO BID #60 tablet 11/06/19 11/08/19 levoFLOXacin [Levofloxacin] 500 mg PO DAILY #4 tablet 11/06/19 11/08/19 - Allergies Allergies/Adverse Reactions: Allergies Allergy/AdvReac Type Severity Reaction Status Date / Time cephalexin monohydrate * Allergy Unknown Verified 11/07/19 20:35 [From Keflex] codeine Allergy Itching Verified 11/07/19 20:35 morphine Allergy Emesis Verified 11/07/19 20:35 Penicillins Allergy Hives Verified 11/07/19 20:35 - Social History Does the pt smoke?: No Smoking Status: Never smoker Does the pt drink ETOH?: No Does the pt have substance abuse?: No - Immunizations Immunizations are current?: Yes - POLST Patient has POLST: Yes POLST Status: Full Code Departure - Departure Disposition: 01 Home, Self Care Clinical Impression: Weakness Condition: Good Instructions: ED Prevention Fall Follow-Up: Delio Mack PA-C [Primary Care Provider] - Comments: Follow-up with your primary care provider this week for reevaluation. Return to the emergency department if you fall and injure yourself or other problems arise. <Janay Lamb - Last Filed: 11/08/19 11:25> Results - Vitals Vitals: Vital Signs - 24 hr 11/07/19 11/07/19 11/07/19 20:31 20:37 21:13 Temperature 37.1 C Heart Rate 84 81 86 Respiratory 19 18 19 Rate Blood Pressure 164/88 H 139/81 H 178/79 H O2 Saturation 98 98 99 11/07/19 11/07/19 11/08/19 22:02 23:58 00:08 Temperature Heart Rate 84 81 Respiratory 19 16 18 Rate Blood Pressure 186/94 H 195/86 H O2 Saturation 95 95 11/08/19 11/08/19 11/08/19 00:43 01:01 02:39 Temperature Heart Rate 81 Respiratory 18 19 16 Rate Blood Pressure O2 Saturation 95 11/08/19 11/08/19 11/08/19 03:48 05:56 07:00 Temperature Heart Rate 81 78 Respiratory 19 16 18 Rate Blood Pressure 177/99 H 169/68 H O2 Saturation 95 98 11/08/19 09:00 Temperature 36.3 C L Heart Rate 85 Respiratory 18 Rate Blood Pressure 158/86 H O2 Saturation 94 Oxygen O2 Source [Without Activity] Nasal cannula O2 Source Nasal cannula - Labs Labs: Laboratory Tests 11/07/19 11/07/19 11/07/19 21:56 22:01 22:01 WBC 11.6 H RBC 4.32 Hgb 12.8 Hct 40.9 MCV 94.7 MCH 29.6 MCHC 31.3 L RDW 13.0 Plt Count 280 MPV 9.2 Neut # (Auto) 8.9 H Lymph # (Auto) 1.5 [place] # (Auto) 1.0 Eos # (Auto) 0.1 Baso # (Auto) 0.0 Absolute Nucleated RBC 0.00 Nucleated RBC % 0.0 Sodium 137 Potassium 4.2 Chloride 93 L Carbon Dioxide 33 H Anion Gap 11.0 BUN 23 H Creatinine 0.7 Estimated GFR (MDRD) 83 L Glucose 250 H Calcium 8.8 Urine Color YELLOW Urine Clarity CLEAR Urine pH 7.0 Ur Specific [place] 1.010 Urine Protein NEGATIVE Urine Glucose (UA) NEGATIVE Urine Ketones NEGATIVE Urine Occult Blood NEGATIVE Urine Nitrite NEGATIVE Urine Bilirubin NEGATIVE Urine Urobilinogen 1 (NORMAL) Ur Leukocyte Esterase NEGATIVE Ur Microscopic Review NOT INDICATED Urine Culture Comments NOT INDICATED PD MEDICAL DECISION MAKING - ED course ED course: 1122: Care was turned over by Dr Ghosh and patient was evaluated by Social Work for possible placement due to weakness. After discussion with Social Work, the decision was made that the patient would return home. She is agreeable to the plan.
[2019-11-07 22:01] LABS: BILIRUBIN,URINE NEGATIVE (NEGATIVE); GLUCOSE, URINE (UA) NEGATIVE (NEGATIVE); KETONES,URINE (UA) NEGATIVE (NEGATIVE); LEUKOCYTE ESTERASE, URINE NEGATIVE (NEGATIVE); NITRITE,URINE NEGATIVE (NEGATIVE); OCCULT BLOOD,URINE NEGATIVE (NEGATIVE); PROTEIN,URINE NEGATIVE (NEGATIVE); UROBILINOGEN,URINE 1 (NORMAL) E.U./dL (NORMAL)
[2019-11-07 22:02] LABS: CLARITY,URINE CLEAR (CLEAR)
[2019-11-07 22:08] LABS: BASOPHILS % (AUTO) 0.2 %; EOSINOPHILS # (AUTO) 0.1 10^3/uL (0.0-0.7); HGB - HEMOGLOBIN 12.8 g/dL (12.0-16.0); LYMPHOCYTES # (AUTO) 1.5 10^3/uL (1.5-3.5); LYMPHOCYTES % (AUTO) 12.7 %; MEAN CORPUSCULAR HEMOGLOBIN 29.6 pg (27.0-31.0); MEAN CORPUSCULAR HGB CONC 31.3 g/dL (32.0-36.0); MEAN CORPUSCULAR VOLUME 94.7 fL (81.0-99.0); MEAN PLATELET VOLUME 9.2 fL (7.9-10.8); MONOCYTES % (AUTO) 8.4 %; NEUTROPHILS # (AUTO) 8.9 10^3/uL (1.5-6.6); NEUTROPHILS % (AUTO) 77.1 %; PLT - PLATELET COUNT 280 10^3/uL (130-450); RED BLOOD COUNT 4.32 10^6/uL (4.20-5.40); WHITE BLOOD COUNT 11.6 x10^3/uL (4.8-10.8)
[2019-11-07 22:19] LABS: CALCIUM 8.8 mg/dL (8.5-10.3); CREATININE 0.7 mg/dL (0.4-1.0)
--- NOTE | 2019-11-07 23:08 | XRAY Report ---
Reason: fall, pain, tenderness Procedure Date: 11/07/2019 Accession Number: [id number] / [id number] Procedure: XR - Shoulder 3 View LT CPT Code: Final Report FULL RESULT: EXAM: LEFT SHOULDER RADIOGRAPHY EXAM DATE: 11/07/2019 10:58 PM. CLINICAL HISTORY: Fall, pain, tenderness. COMPARISON: None. TECHNIQUE: 3 views. FINDINGS: Bones: No fracture or suspicious bone lesion. Joints: The glenohumeral and acromioclavicular joints are normally aligned. Mild to moderate acromioclavicular osteoarthritis present and at least mild glenohumeral joint osteoarthritis. Assessment of glenohumeral joint is limited on provided views. Soft tissues: Prominent soft tissues related to body habitus. IMPRESSION: 1. No acute fracture or dislocation. 2. Degenerative changes of left shoulder. RADIA
--- NOTE | 2019-11-07 23:17 | XRAY Report ---
Reason: fall, pain, tendernes Procedure Date: 11/07/2019 Accession Number: [id number] / [id number] Procedure: XR - Knee 3 View BILAT CPT Code: Final Report FULL RESULT: EXAMS: 1. Right Knee Radiography 2. Left Knee Radiography EXAM DATE:11/07/2019 11:04 PM. CLINICAL HISTORY:Fall, pain, tendernes. COMPARISON: WRIST 3 VIEW RT 02/26/2018 1:44 PM KNEE 4 VIEW RT 05/02/2014 5:17 PM KNEE 4 VIEW BILAT 02/26/2014 11:38 AM KNEE 4 VIEW RT 12/13/2013 4:40 PM. TECHNIQUE: 3 views each. FINDINGS: Bones: No acute displaced fractures or suspicious bony lesion. However, bones are at least moderately osteopenic. This reduces exam sensitivity and specificity for detection of subtle bony lesions and/or fractures. Joints: No dislocation. No significant effusion. There is severe tricompartmental degenerative change. Soft Tissues: No significant soft tissue swelling. IMPRESSION: 1. No acute osseous abnormality demonstrated. However, bones are at least moderately osteopenic. This reduces exam sensitivity and specificity for detection of subtle bony lesions and/or fractures. 2. Severe bilateral tricompartmental degenerative change. Slightly increased involvement within the left knee medial compartment. These are progressed from the prior 2013 study. RADIA
[2019-11-08 09:20] VITALS: BP 158/86
[2019-11-08] MEDS ORDERED: HYDROcod/ACETAM 5/325 MG TABLET PO STA (10:47)
--- NOTE | 2019-11-08 16:09 | ED Physician Documentation ---
History of Present Illness - Stated complaint Stated Complaint: WEAKNESS - Chief complaint Chief Complaint: General - History obtained from History obtained from: Patient, EMS - History of Present Illness Timing: Today Pain level now: 6 Improved by: rest Worsened by: movement - Additonal information Additional information: BIBA, c/o fall due to generalized weakness and left shoulder and bilateral knee pain due to falling. patient was admitted to [facility] 11/02 and discharged yesterday; she was diagnosed with pneumonia and this was the primary reason for admission. patient says the weakness is generalized and not new, but she feels it is worse than before she was admitted. previous ED note indicates she is baseline wheelchair-bound, although patient tells me she walks with a walker Review of Systems Constitutional: reports: Reviewed and negative Cardiac: reports: Reviewed and negative Respiratory: reports: Dyspnea (not new). denies: Cough GI: reports: Reviewed and negative : denies: Dysuria, Frequency Musculoskeletal: reports: Joint pain (left shoulder and bilateral knees). denies: Neck pain, Back pain Neurologic: reports: Generalized weakness. 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 - Past Surgical History Past Surgical History: No HEENT: Cataracts - Present Medications Home Medications: Ambulatory Orders Medication Instructions Recorded Confirmed Atorvastatin Calcium [Lipitor] 10 mg PO QPM 12/13/13 11/08/19 Nortriptyline [Pamelor] 100 mg PO QPM 12/13/13 11/08/19 Omeprazole [Prilosec] 20 mg PO QDAC 12/13/13 11/08/19 Montelukast [Singulair] 10 mg PO QPM 12/21/14 11/08/19 Aspirin [Aspir 81] 81 mg PO DAILY 09/20/15 11/08/19 Meclizine HCl [Travel Sickness] 50 mg PO DAILY 09/20/15 11/08/19 Duloxetine HCl 60 mg PO DAILY 01/05/17 11/08/19 Albuterol Sulfate [Proair Hfa 2 puffs INH Q4H PRN 01/06/17 11/08/19 Inhaler] Gabapentin 300 mg PO BID 07/26/18 11/08/19 Insulin Aspart [NovoLOG] 10 units SUBQ 08,199907/26/18 11/08/19 Insulin Glargine [Lantus Solostar] 60 units SUBQ QPM 07/26/18 11/08/19 Fluticasone 110 Mcg [Flovent] 2 puffs INH BID 11/02/19 11/08/19 Meclizine HCl 50 mg PO QPM 11/02/19 11/08/19 diphenhydrAMINE HCL 50 mg PO QPM 11/02/19 11/08/19 [Diphenhydramine HCl] Acetaminophen [Tylenol] 650 mg PO Q4HR PRN #90 tablet 11/06/19 11/08/19 Amlodipine Besylate 5 mg PO QPM #30 tablet 11/06/19 11/08/19 Fluticasone [Flonase] 1 sprays ROHITH DAILY #1 bottle 11/06/19 11/08/19 Furosemide 20 mg PO DAILY #30 tablet 11/06/19 11/08/19 HYDROcod/ACETAM 5/325 [[place] 5/325] 1 each PO Q4H PRN #15 tablet 11/06/19 11/08/19 Lisinopril [Zestril] 2.5 mg PO DAILY #30 tablet 11/06/19 11/08/19 Magnesium Oxide [Mag Ox] 40 mg PO BIDWM #60 tablet 11/06/19 11/08/19 Oxymetazoline HCl [Afrin] 15 ml NS BID #1 mist 11/06/19 11/08/19 guaiFENesin [Mucinex] 600 mg PO BID #60 tablet 11/06/19 11/08/19 levoFLOXacin [Levofloxacin] 500 mg PO DAILY #4 tablet 11/06/19 11/08/19 - Allergies Allergies/Adverse Reactions: Allergies Allergy/AdvReac Type Severity Reaction Status Date / Time cephalexin monohydrate * Allergy Unknown Verified 11/07/19 20:35 [From Keflex] codeine Allergy Itching Verified 11/07/19 20:35 morphine Allergy Emesis Verified 11/07/19 20:35 Penicillins Allergy Hives Verified 11/07/19 20:35 - Social History Does the pt smoke?: No Smoking Status: Never smoker Does the pt drink ETOH?: No Does the pt have substance abuse?: No - Immunizations Immunizations are current?: Yes - POLST Patient has POLST: Yes POLST Status: Full Code PD ED PE NORMAL - Vitals Vital signs reviewed: Yes - General General: Alert and oriented X 3, No acute distress, Other (morbidly obese) - HEENT HEENT: Atraumatic, PERRL, Moist mucous membranes - Neck Neck: No bony TTP - Cardiac Cardiac: RRR, No murmur - Respiratory Respiratory: No respiratory distress, Clear bilaterally - Abdomen Abdomen: Soft, Non tender - Back Back: No spinal TTP - Extremities Extremities: No deformity, Other (TTP left shoulder, bilateral knees ) - Neuro Neuro: Alert and oriented X 3, 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, No motor deficit, No sensory deficit, Normal speech Results - Vitals Vitals: Vital Signs - 24 hr 11/07/19 11/07/19 11/07/19 20:31 20:37 21:13 Temperature 37.1 C Heart Rate 84 81 86 Respiratory 19 18 19 Rate Blood Pressure 164/88 H 139/81 H 178/79 H O2 Saturation 98 98 99 11/07/19 11/07/19 11/08/19 22:02 23:58 00:08 Temperature Heart Rate 84 81 Respiratory 19 16 18 Rate Blood Pressure 186/94 H 195/86 H O2 Saturation 95 95 11/08/19 11/08/19 11/08/19 00:43 01:01 02:39 Temperature Heart Rate 81 Respiratory 18 19 16 Rate Blood Pressure O2 Saturation 95 11/08/19 11/08/19 11/08/19 03:48 05:56 07:00 Temperature Heart Rate 81 78 Respiratory 19 16 18 Rate Blood Pressure 177/99 H 169/68 H O2 Saturation 95 98 11/08/19 09:00 Temperature 36.3 C L Heart Rate 85 Respiratory 18 Rate Blood Pressure 158/86 H O2 Saturation 94 Oxygen O2 Source [Without Activity] Nasal cannula O2 Source Nasal cannula - Labs Labs: Laboratory Tests 11/07/19 11/07/19 11/07/19 21:56 22:01 22:01 WBC 11.6 H RBC 4.32 Hgb 12.8 Hct 40.9 MCV 94.7 MCH 29.6 MCHC 31.3 L RDW 13.0 Plt Count 280 MPV 9.2 Neut # (Auto) 8.9 H Lymph # (Auto) 1.5 [place] # (Auto) 1.0 Eos # (Auto) 0.1 Baso # (Auto) 0.0 Absolute Nucleated RBC 0.00 Nucleated RBC % 0.0 Sodium 137 Potassium 4.2 Chloride 93 L Carbon Dioxide 33 H Anion Gap 11.0 BUN 23 H Creatinine 0.7 Estimated GFR (MDRD) 83 L Glucose 250 H Calcium 8.8 Urine Color YELLOW Urine Clarity CLEAR Urine pH 7.0 Ur Specific [place] 1.010 Urine Protein NEGATIVE Urine Glucose (UA) NEGATIVE Urine Ketones NEGATIVE Urine Occult Blood NEGATIVE Urine Nitrite NEGATIVE Urine Bilirubin NEGATIVE Urine Urobilinogen 1 (NORMAL) Ur Leukocyte Esterase NEGATIVE Ur Microscopic Review NOT INDICATED Urine Culture Comments NOT INDICATED - Rads (name of study) left shoulder xrays Radiology: Prelim report reviewed, See rad report bilateral knee xrays Radiology: Prelim report reviewed, See rad report PD MEDICAL DECISION MAKING - ED course Complexity details: reviewed old records, reviewed results, re-evaluated patient, considered differential, d/w patient ED course: no acute findings in plain film studies, and blood tests and UA results are reassuring. results d/w patient and she is reassured by these results. although clearly having periods of anxiety during ED stay (related to her gradually deteriorating health), she tells me she is comfortable with discharge home. I offered to have SW discuss options for placement, which she rapidly declines. unfortunately, she then contacted her sister who is 70 years old and on whom she relies on for assistance, at times, with mobility and ADLs, and after this phone conversation, patient says her sister does not feel she can continue to provide patient with the support she requires and thus patient now requests AM SW consult. care of patient turned over to Dr. Lamb pending SW consult Departure - Departure Disposition: 01 Home, Self Care Clinical Impression: Weakness Condition: Good Instructions: ED Prevention Fall Follow-Up: Delio Mack PA-C [Primary Care Provider] - Comments: Follow-up with your primary care provider this week for reevaluation. Return to the emergency department if you fall and injure yourself or other problems arise. Discharge Date/Time: 11/08/19 12:05
== END 2019-11-08 12:05 | disposition home or self-care (01) ==
LOC: EDBD → EDUNIT# → ED 20:13
DX: R53.1 Weakness (principal); Z91.81 History of falling; I11.0 Hypertensive heart disease with heart failure; I50.9 Heart failure, unspecified; E11.42 Type 2 diabetes mellitus with diabetic polyneuropathy; Z79.4 Long term (current) use of insulin; M19.012 Primary osteoarthritis, left shoulder; M17.0 Bilateral primary osteoarthritis of knee; J44.9 Chronic obstructive pulmonary disease, unspecified; F41.9 Anxiety disorder, unspecified; E66.01 Morbid (severe) obesity due to excess calories; Z68.44 Body mass index [BMI] 60.0-69.9, adult; Z79.82 Long term (current) use of aspirin
CPT/HCPCS: 36415; 51701; 73030; 73562; 80048; 81003; 85025; 99284; A9270; 81001; 87086

== ENCOUNTER 2019-11-08 12:06 | Outpatient (CLI) | payer MEDICARE, MEDICAID | END 2019-11-08 12:07 | disposition home or self-care (01) | LOC: EMS 12:06 | PROVIDERS: ATTEND Surgery | DX: E66.01 Morbid (severe) obesity due to excess calories (principal) | CPT/HCPCS: A0425; A0428 ==

== ENCOUNTER 2019-12-10 10:14 | Outpatient (CLI) | payer MEDICARE, MEDICAID ==
[2019-12-10 12:48] LABS: BASOPHILS % (AUTO) 0.3 %; EOSINOPHILS # (AUTO) 0.1 10^3/uL (0.0-0.7); EOSINOPHILS % (AUTO) 1.3 %; HGB - HEMOGLOBIN 13.7 g/dL (12.0-16.0); LYMPHOCYTES # (AUTO) 1.6 10^3/uL (1.5-3.5); LYMPHOCYTES % (AUTO) 14.5 %; MEAN CORPUSCULAR HEMOGLOBIN 28.5 pg (27.0-31.0); MEAN CORPUSCULAR HGB CONC 30.3 g/dL (32.0-36.0); MONOCYTES # (AUTO) 0.6 10^3/uL (0.0-1.0); MONOCYTES % (AUTO) 5.4 %; NEUTROPHILS # (AUTO) 8.6 10^3/uL (1.5-6.6); PLT - PLATELET COUNT 341 10^3/uL (130-450); RED BLOOD COUNT 4.81 10^6/uL (4.20-5.40); RED CELL DISTRIBUTION WIDTH 13.5 % (12.0-15.0)
[2019-12-10 13:13] LABS: ALBUMIN 3.7 g/dL (3.2-5.5); ALKALINE PHOSPHATASE 91 IU/L (42-121); ALT ALANINE AMINOTRANSFERASE 12 IU/L (10-60); AST ASPARTATE AMINOTRANSFERASE 16 IU/L (10-42); BILIRUBIN,TOTAL 0.5 mg/dL (0.2-1.0); BUN - BLOOD UREA NITROGEN 23 mg/dL (6-20); CALCIUM 8.9 mg/dL (8.5-10.3); CARBON DIOXIDE - CO2 29 mmol/L (21-32); CHLORIDE 101 mmol/L (101-111); CHOL/HDL RATIO 3.3 (<4.4); CHOLESTEROL 169 mg/dL; CREATININE 0.8 mg/dL (0.4-1.0); GFR - MDRD 72 (>89); GLUCOSE 155 mg/dL (70-100); HDL CHOLESTEROL 51 mg/dL; LDL CHOLESTEROL,CALCULATED 83 mg/dL; LDL/HDL RATIO 1.6 (<4.4); SODIUM 138 mmol/L (135-145); TOTAL PROTEIN 7.5 g/dL (6.7-8.2); VLDL CHOLESTEROL 35 mg/dL
== END 2019-12-10 23:59 | disposition home or self-care (01) ==
LOC: LAB.N 10:14
PROVIDERS: ATTEND Physician Assistant Medical
DX: J18.9 Pneumonia, unspecified organism (principal); I50.33 Acute on chronic diastolic (congestive) heart failure; I11.0 Hypertensive heart disease with heart failure; I50.84 End stage heart failure; R53.1 Weakness; Z99.3 Dependence on wheelchair; E66.01 Morbid (severe) obesity due to excess calories; E78.5 Hyperlipidemia, unspecified
CPT/HCPCS: 36415; 80053; 80061; 83721; 83880; 85025

== ENCOUNTER 2020-03-23 14:01 | Outpatient (CLI) | payer MEDICARE, MEDICAID ==
[2020-03-23 18:31] LABS: BASOPHILS # (AUTO) 0.1 10^3/uL (0.0-0.1); BASOPHILS % (AUTO) 0.4 %; EOSINOPHILS # (AUTO) 0.2 10^3/uL (0.0-0.7); EOSINOPHILS % (AUTO) 1.7 %; HGB - HEMOGLOBIN 13.5 g/dL (12.0-16.0); LYMPHOCYTES # (AUTO) 1.5 10^3/uL (1.5-3.5); LYMPHOCYTES % (AUTO) 12.1 %; MEAN CORPUSCULAR HEMOGLOBIN 29.9 pg (27.0-31.0); MEAN CORPUSCULAR HGB CONC 30.6 g/dL (32.0-36.0); MEAN CORPUSCULAR VOLUME 97.6 fL (81.0-99.0); MONOCYTES # (AUTO) 0.7 10^3/uL (0.0-1.0); MONOCYTES % (AUTO) 5.8 %; NEUTROPHILS # (AUTO) 9.9 10^3/uL (1.5-6.6); NEUTROPHILS % (AUTO) 79.5 %; PLT - PLATELET COUNT 348 10^3/uL (130-450); RED BLOOD COUNT 4.52 10^6/uL (4.20-5.40); WHITE BLOOD COUNT 12.5 x10^3/uL (4.8-10.8)
[2020-03-23 18:53] LABS: CREATININE 0.9 mg/dL (0.4-1.0)
[2020-03-23 19:25] LABS: HEMOGLOBIN A1C 0.7 g/dL; HEMOGLOBIN A1C % 6.7 % (4.6-6.2)
== END 2020-03-23 23:59 | disposition home or self-care (01) ==
LOC: LAB.WCP 14:01
PROVIDERS: ATTEND Family Medicine
DX: E11.9 Type 2 diabetes mellitus without complications (principal); E78.5 Hyperlipidemia, unspecified; I10 Essential (primary) hypertension
CPT/HCPCS: 36415; 80048; 80061; 82043; 82570; 83036; 83721; 85025

== ENCOUNTER 2020-03-25 08:00 | Outpatient (CLI) | payer MEDICARE, MEDICAID ==
[2020-03-25 19:27] LABS: CREATININE,URINE 32.9 mg/dL
[2020-03-25 19:38] LABS: MICROALBUMIN,URINE < 0.2 mg/dL (0-300.0)
== END 2020-03-25 23:59 | disposition home or self-care (01) ==
LOC: LAB.R 08:00
PROVIDERS: ATTEND Family Medicine
DX: E11.9 Type 2 diabetes mellitus without complications (principal)
CPT/HCPCS: 82043; 82570

== ENCOUNTER → 2020-06-29 | Outpatient (CLI) | payer MEDICARE, MEDICAID ==
[2020-06-29 19:02] LABS: ALBUMIN 3.8 g/dL (3.2-5.5); BILIRUBIN,TOTAL 0.5 mg/dL (0.2-1.0); CALCIUM 9.4 mg/dL (8.5-10.3); CREATININE 0.8 mg/dL (0.4-1.0); TOTAL PROTEIN 7.6 g/dL (6.7-8.2)
[2020-06-29 20:25] LABS: HEMOGLOBIN A1c% 6.8 % (4.27-6.07)
== END ==
LOC: LAB.WCP 14:31
PROVIDERS: ATTEND Family Medicine
DX: E11.22 Type 2 diabetes mellitus with diabetic chronic kidney disease (principal); N18.2 Chronic kidney disease, stage 2 (mild); Z79.4 Long term (current) use of insulin
CPT/HCPCS: 36415; 80053; 82043; 82570; 83036

== ENCOUNTER 2021-01-26 10:25 | Outpatient (CLI) | payer MEDICARE, MEDICAID | END 2021-01-26 10:26 | disposition critical access hospital (66) | LOC: EMS 10:25 | DX: M25.552 Pain in left hip (principal); R05 Cough; R53.1 Weakness | CPT/HCPCS: A0425; A0429 ==

== ENCOUNTER 2021-01-26 10:48 | Emergency (ER) | payer MEDICARE, MEDICAID ==
[2021-01-26] MEDS ORDERED: guaiFENesin/CODEINE 5 ML UDC PO STA (10:59)
--- NOTE | 2021-01-26 11:00 | ED Physician Documentation ---
PD HPI Fall - Stated complaint Stated Complaint: GLF/COUGH - History obtained from History obtained from: Patient, EMS - Additional information Additional information: 70-year-old woman presents by ambulance after a fall. She was just weak and using her walker and ended up going down onto her knees. She has chronic pain of both hips and knees but both hurt more than usual. Also complains of productive cough. It is reported that she hit her head on the way down but she denies headache. She was seen at a walk-in clinic yesterday and prescribed doxycycline for clinically diagnosed pneumonia. She states she has not recently had a chest x-ray. 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 : Incontinence, Frequency HEENT: Chronic vision loss, Chronic sinusitis Psych: Depression, Anxiety Musculoskeletal: Osteoarthritis, Fatigue, Chronic back pain Derm: Eczema, Psoriasis - Past Surgical History Past Surgical History: No HEENT: Cataracts - Present Medications Home Medications: Ambulatory Orders Medication Instructions Recorded Confirmed Nortriptyline [Pamelor] 100 mg PO QPM 12/13/13 01/26/21 Omeprazole [Prilosec] 20 mg PO QDAC 12/13/13 01/26/21 Montelukast [Singulair] 10 mg PO QPM 12/21/14 01/26/21 Aspirin [Aspir 81] 81 mg PO DAILY 09/20/15 01/26/21 Meclizine HCl [Travel Sickness] 25 mg PO TID PRN 09/20/15 01/26/21 Duloxetine HCl 60 mg PO DAILY 01/05/17 01/26/21 Albuterol Sulfate [Proair Hfa 2 puffs INH Q4H PRN 01/06/17 01/26/21 Inhaler] Insulin Aspart [NovoLOG] 10 units SUBQ 0800,199907/26/18 11/08/19 Insulin Glargine [Lantus Solostar] 60 units SUBQ QPM 07/26/18 11/08/19 Fluticasone 110 Mcg [Flovent] 2 puffs INH BID 11/02/19 01/26/21 diphenhydrAMINE HCL 50 mg PO QPM 11/02/19 01/26/21 [Diphenhydramine HCl] Acetaminophen [Tylenol] 650 mg PO Q4HR PRN #90 tablet 11/06/19 11/08/19 Amlodipine Besylate 5 mg PO QPM #30 tablet 11/06/19 01/26/21 Fluticasone [Flonase] 1 sprays ROHITH DAILY #1 bottle 11/06/19 11/08/19 Furosemide 20 mg PO DAILY #30 tablet 11/06/19 01/26/21 HYDROcod/ACETAM 5/325 [[place] 5/325] 1 each PO Q4H PRN #15 tablet 11/06/19 11/08/19 Magnesium Oxide [Mag Ox] 40 mg PO BIDWM #60 tablet 11/06/19 11/08/19 Oxymetazoline HCl [Afrin] 15 ml NS BID #1 mist 11/06/19 11/08/19 guaiFENesin [Mucinex] 600 mg PO BID #60 tablet 11/06/19 11/08/19 Ascorbic Acid [Vitamin C] 500 mg PO DAILY 01/26/21 01/26/21 Atorvastatin Calcium 40 mg PO HS 01/26/21 01/26/21 Budesonide/Formoterol Fumarate 2 puffs IH BID 01/26/21 01/26/21 [Symbicort 80-4.5 Mcg Inhaler] Calcium Carbonate/Vitamin D3 1 each PO DAILY 01/26/21 01/26/21 [Calcium 600-Vit D3 200 Tablet] Codeine Phosphate/Guaifenesin 5 - 10 ml PO Q6HR PRN 01/26/21 01/26/21 [Guaifen-Codeine 100-10 mg/5 ml] Gabapentin [Neurontin] 300 mg PO BID 01/26/21 01/26/21 HYDROcod/ACETAM 5/325 [[place] 5/325] 1 - 2 tab PO Q6H PRN #15 tablet 01/26/21 Lisinopril [Zestril] 20 mg PO DAILY 01/26/21 01/26/21 - Allergies Allergies/Adverse Reactions: Allergies Allergy/AdvReac Type Severity Reaction Status Date / Time cephalexin monohydrate * Allergy Unknown Verified 11/07/19 20:35 [From Keflex] codeine Allergy Itching Verified 11/07/19 20:35 morphine Allergy Emesis Verified 11/07/19 20:35 Penicillins Allergy Hives Verified 11/07/19 20:35 - Social History Does the pt smoke?: No Smoking Status: Never smoker Does the pt drink ETOH?: No Does the pt have substance abuse?: No - Immunizations Immunizations are current?: Yes - POLST Patient has POLST: Yes POLST Status: Full Code PD ED PE NORMAL - Vitals Vital signs reviewed: Yes - General General: Alert and oriented X 3, No acute distress - HEENT HEENT: EOMI, Other (Anterior chamber of the right eye is partially opacified and she says this is chronic and 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 No deformities.) - Neuro Neuro: Alert and oriented X 3, Normal speech Results - Vitals Vitals: Vital Signs - 24 hr 01/26/21 01/26/21 01/26/21 10:57 12:46 14:00 Temperature 36.2 C L 36.7 C Heart Rate 74 95 96 Respiratory 20 22 24 Rate Blood Pressure 151/123 H 111/68 121/79 O2 Saturation 94 99 97 01/26/21 16:00 Temperature Heart Rate 99 Respiratory 22 Rate Blood Pressure 128/67 O2 Saturation 97 Oxygen O2 Source [Without Activity] Nasal cannula O2 Source Room air - Labs Labs: Laboratory Tests 01/26/21 01/26/21 11:08 11:08 WBC 10.7 RBC 4.20 Hgb 12.6 Hct 40.7 MCV 96.9 MCH 30.0 MCHC 31.0 L RDW 13.5 Plt Count 310 MPV 9.5 Neut # (Auto) 8.7 H Lymph # (Auto) 1.2 L [place] # (Auto) 0.7 Eos # (Auto) 0.2 Baso # (Auto) 0.1 Absolute Nucleated RBC 0.00 Nucleated RBC % 0.0 Sodium 140 Potassium 5.6 H Chloride 107 Carbon Dioxide 25 Anion Gap 8.0 BUN 38 H Creatinine 1.2 H Estimated GFR (MDRD) 45 L Glucose 146 H Calcium 9.2 Total Bilirubin 0.6 AST 16 ALT 18 Alkaline Phosphatase 94 Total Protein 7.5 Albumin 3.5 Globulin 4.0 Albumin/Globulin Ratio 0.9 L PD MEDICAL DECISION MAKING - ED course ED course: 70-year-old woman with multiple comorbidities including diabetes, morbid obesity was weak and had a fall. Did not seem like any major injuries on the way down. X-rays of the hips bilaterally, knees bilaterally, and chest interpreted contemporaneously by me show no acute findings. She does have severe osteoarthritis. She initially declined anything for pain but later asked for something for pain and she was given hydrocodone. She does not think she will be able to go home, not enough help and she is too weak, so social work was consulted for alternative options. 70-year-old woman presents after a fall, no seeming major injury. She expressed interest in potentially going to a SNF for rehab and social work was involved, but there are no other options and going home. Social work did contact her porter sample case to see about home health or increasing her caregiver hours. Mild hyperkalemia as noted, this is a recurrent phenomenon for her, she has had much worse in the past. She was advised to increase water intake. vessel slag worker talk to the sister again who basically said she is at her wits end and cannot care for her anymore and if she goes home today, she, the sister/caregiver will just leave and leave her alone. As such there is no current reasonable discharge plan. Subsequently the social work supervisor was able to get a hold of the child care cook and reportedly she may be able to be discharged home tomorrow with increased hours etc. Departure - Departure Clinical Impression: Weakness, Pain in lower limb Condition: Stable Record reviewed to determine appropriate education?: Yes Instructions: ED Contusion Lower Ext Prescriptions: HYDROcod/ACETAM 5/325 [[place] 5/325] 1 - 2 tab PO Q6H PRN #15 tablet PRN Reason: Pain Comments: Follow-up with primary care, next available appointment. Return for new or worsening symptoms. Continue antibiotic, But note chest x-ray without pneumonia.
[2021-01-26 11:16] LABS: BASOPHILS # (AUTO) 0.1 10^3/uL (0.0-0.1); BASOPHILS % (AUTO) 0.5 %; EOSINOPHILS # (AUTO) 0.2 10^3/uL (0.0-0.7); EOSINOPHILS % (AUTO) 1.5 %; HCT - HEMATOCRIT 40.7 % (37.0-47.0); HGB - HEMOGLOBIN 12.6 g/dL (12.0-16.0); LYMPHOCYTES # (AUTO) 1.2 10^3/uL (1.5-3.5); LYMPHOCYTES % (AUTO) 10.8 %; MEAN CORPUSCULAR VOLUME 96.9 fL (81.0-99.0); MEAN PLATELET VOLUME 9.5 fL (7.9-10.8); MONOCYTES # (AUTO) 0.7 10^3/uL (0.0-1.0); MONOCYTES % (AUTO) 6.1 %; NEUTROPHILS # (AUTO) 8.7 10^3/uL (1.5-6.6); NEUTROPHILS % (AUTO) 80.6 %; PLT - PLATELET COUNT 310 10^3/uL (130-450); RED CELL DISTRIBUTION WIDTH 13.5 % (12.0-15.0); WHITE BLOOD COUNT 10.7 x10^3/uL (4.8-10.8)
[2021-01-26 11:27] LABS: ALBUMIN 3.5 g/dL (3.2-5.5); ALBUMIN/GLOBULIN RATIO 0.9 (1.0-2.2); BILIRUBIN,TOTAL 0.6 mg/dL (0.2-1.0); CALCIUM 9.2 mg/dL (8.5-10.3); CREATININE 1.2 mg/dL (0.4-1.0); POTASSIUM 5.6 mmol/L (3.5-5.0); TOTAL PROTEIN 7.5 g/dL (6.7-8.2)
--- NOTE | 2021-01-26 11:51 | XRAY Report ---
PROCEDURE: Hips 3-4V BILAT INDICATIONS: hip pain TECHNIQUE: 2 views of the right hip and left hip were acquired. COMPARISON: Pelvic x-ray 12/13/2013. FINDINGS: Image quality limited by patient body habitus. Bones: No fractures or dislocations. No suspicious bony lesions. The visualized pelvic ring appear s intact. Soft tissues: No suspicious soft tissue calcifications or masses. IMPRESSION: No fracture within limitations of the study. No acute osseous lesion within limitations of the study. If there are persistent symptoms or continued clinical concern for pathology, then repeat plain film radiographs (7-10 days) or advanced imaging (CT, MR, bone scan) should be considered for further radha luation. Reviewed by: Jamila Lutz MD, PhD on 01/26/2021 11:50 AM PDT Approved by: Jamila Lutz MD, PhD on 01/26/2021 11:50 AM PDT Station ID: [id number]
--- NOTE | 2021-01-26 11:53 | XRAY Report ---
PROCEDURE: Knee 3 View BILAT INDICATIONS: knee pain TECHNIQUE: 3 views of the right and left knee(s) were acquired. COMPARISON: None. FINDINGS: Bones: No fractures or dislocations. No suspicious bony lesions. Severe tricompartment osteoarthrit is. Soft tissues: No joint effusion. No suspicious soft tissue calcifications. IMPRESSION: 1. No fracture. No acute osseous lesion. If there persistent symptoms or continued clinical concern f or pathology, then repeat plain film radiographs (7-10 days) or advanced imaging (CT, MR, bone scan) should be considered for further evaluation. 2. Severe bilateral knee tricompartmental osteoarthritis. Reviewed by: Jamila Lutz MD, PhD on 01/26/2021 11:52 AM PDT Approved by: Jamila Lutz MD, PhD on 01/26/2021 11:52 AM PDT Station ID: [id number]
--- NOTE | 2021-01-26 11:55 | XRAY Report ---
PROCEDURE: Chest 1 View X-Ray INDICATIONS: cough TECHNIQUE: One view of the chest was acquired. COMPARISON: Chest x-ray 11/02/2019 FINDINGS: Surgical changes and devices: None. Lungs and pleura: No pleural effusions or pneumothorax. Mild increased pulmonary vascularity. Mediastinum: Mediastinal contours appear normal. Heart size is normal. Bones and chest wall: No suspicious bony lesions. Overlying soft tissues appear unremarkable. IMPRESSION: Mild increased vascularity suggestive of edema. Reviewed by: Erica Jon MD on 01/26/2021 10:53 AM GRACE Approved by: Erica Jon MD on 01/26/2021 10:53 AM GRACE Station ID: [id number]
[2021-01-26] MEDS ORDERED: HYDROcod/ACETAM 5/325 MG TABLET PO STA (12:26)
[2021-01-26] MEDS: guaiFENesin/CODEINE 5 ML UDC PO PRN (17:08)
[2021-01-26] MEDS: INSULIN ASPART 300 UNIT/3 ML PEN SUBQ SCH (17:38)
[2021-01-26] MEDS: GABAPENTIN 100 MG CAPSULE PO SCH (20:31)
[2021-01-26] MEDS: HYDROcod/ACETAM 5/325 MG TABLET PO PRN (20:33)
[2021-01-26] MEDS ORDERED: ATORVASTATIN 10 MG TABLET PO SCH (21:00)
[2021-01-26] MEDS ORDERED: INSULIN GLARGINE 300 UNIT/3 ML PEN SUBQ SCH (21:00)
[2021-01-26] MEDS ORDERED: NORTRIPTYLINE 25 MG CAPSULE PO SCH (21:00)
[2021-01-26] MEDS ORDERED: amLODIPine 5 MG TABLET PO SCH (21:00)
[2021-01-26] MEDS ORDERED: MONTELUKAST 10 MG TABLET PO SCH (21:00)
[2021-01-27] MEDS: guaiFENesin/CODEINE 5 ML UDC PO PRN ×2 (03:55→10:21)
[2021-01-27] MEDS ORDERED: ALBUTEROL 1 PUFF INH PRN ×2 (05:31→05:45)
[2021-01-27] MEDS ORDERED: ALBUTEROL 1 PUFF INH STA (05:39)
[2021-01-27] MEDS: INSULIN ASPART 300 UNIT/3 ML PEN SUBQ SCH (08:20)
[2021-01-27 08:21] VITALS: BP 116/64
[2021-01-27] MEDS ORDERED: ASPIRIN CHEW 81 MG TABLET PO SCH (09:00)
[2021-01-27] MEDS ORDERED: PANTOPRAZOLE 40 MG TABLET PO SCH (09:00)
[2021-01-27] MEDS ORDERED: lisinopriL 5 MG TABLET PO SCH ×2 (09:00)
[2021-01-27] MEDS ORDERED: DULoxetine 30 MG CAPSULE PO SCH (09:00)
[2021-01-27] MEDS: GABAPENTIN 100 MG CAPSULE PO SCH (09:46)
[2021-01-27] MEDS: HYDROcod/ACETAM 5/325 MG TABLET PO PRN (10:21)
== END 2021-01-27 11:38 | disposition home or self-care (01) ==
LOC: EDUNIT# → ED 10:48
DX: R53.1 Weakness (principal); M25.561 Pain in right knee; M25.562 Pain in left knee; M25.551 Pain in right hip; M25.552 Pain in left hip; W18.39XA Other fall on same level, initial encounter; Y93.01 Activity, walking, marching and hiking; E87.5 Hyperkalemia; M17.0 Bilateral primary osteoarthritis of knee; E11.42 Type 2 diabetes mellitus with diabetic polyneuropathy; Z79.4 Long term (current) use of insulin; I10 Essential (primary) hypertension; J44.9 Chronic obstructive pulmonary disease, unspecified; Z79.82 Long term (current) use of aspirin; E66.01 Morbid (severe) obesity due to excess calories; Z68.43 Body mass index [BMI] 50.0-59.9, adult
CPT/HCPCS: 36415; 71045; 73522; 73562; 80048; 80053; 85025; 94640; 99283; 99284; A9270; J1815

== ENCOUNTER 2021-01-28 20:50 | Outpatient (CLI) | payer MEDICARE, MEDICAID | END 2021-01-28 20:51 | disposition short-term general hospital (02) | LOC: EMS 20:50 | DX: R53.1 Weakness (principal) | CPT/HCPCS: A0425; A0429 ==

== ENCOUNTER 2021-06-18 19:46 | Outpatient (CLI) | payer MEDICARE, MEDICAID | END 2021-06-18 19:47 | disposition E | LOC: EMS 19:46 | DX: I46.9 Cardiac arrest, cause unspecified (principal) | CPT/HCPCS: A0425; A0429 ==